=== PATIENT | male | born 1950 | race Caucasian/White ===

== ENCOUNTER 2018-08-16 12:55 | Outpatient (CLI) | payer MEDICARE ==
[~2018-08-16 12:55] MED LIST: ISOVUE-370 76%-LOCM 1 ML ONE
--- NOTE | 2018-08-16 14:42 | CT ---
CT CHEST WITH CONTRAST: 08/16/18 Multiple axial tomograms obtained through the chest with IV enhancement. INDICATIONS: Follow-up lung mass. Comparison made to chest CT 03/23/18. FINDINGS: The pleural based mass in the posterior right lower lobe is again seen. This mass continues to exhibi t a low density center with mild peripheral enhancement. The soft tissue density extends into a right lower lobe bronchus as noted on the prior study. This mass is slightly increased in size. It has a w edge shaped appearance today. Its dural base is slightly increased. Axial plane measurements are rec orded at 6.6 cm AP dimension x 5.1 cm width. A similar location measurement on the prior study record ed at 3.8 cm x 5.0 cm. the reticular nodular process in the right lower lobe parenchyma is again seen similar to the prior study. There is a nodular density in the right middle lobe which exhibits slight spiculation. This has tota l measurement of approximately 1.1 cm in axial plane. It appears stable from the prior study. There is a second pleural based nodular opacity now seen in the posterior gutter on the right measuri ng 2.0 cm in the axial plane. This could represent pleural based atelectasis as it is associated with other patchy atelectasis and/or infiltrate. There is linear opacity in the left upper lobe, apical region, extending to the apical pleural surfac e with associated apical pleural thickening is again seen without significant interval change consist ent with chronic apical pleural and parenchymal change. Nonspecific mediastinal lymph nodes and right hilar adenopathy appears stable. Views through the uppe r abdomen are unremarkable. Thoracic aorta shows atherosclerotic change without evidence of aneurysm or dissection. Proximal pulmonary arteries are opacified with no evidence of proximal pulmonary embo [place]. IMPRESSION: 1. The pleural based mass density in the posterior right lower lobe with central lucency and per ipheral enhancement is again seen. It has a more wedge configuration today. It has slightly enlarged from the prior study as noted above. The associated reticulonodular process in the right lung parench yma is again seen. There are confluent areas of streaky atelectasis or infiltrate in the posterior ri ght lung base with some nodular pleural based density seen today as described above. 2. The focal nodular density in the right middle lobe with slight spiculation is again seen and is unchanged. 3. Chronic parenchymal and pleural changes in the left apex appears stable. POS: OFF
== END 2018-08-16 12:56 | disposition home or self-care (01) ==
LOC: BICCT 12:55
PROVIDERS: ATTEND Internal Medicine
DX: R91.8 Other nonspecific abnormal finding of lung field (principal); F17.290 Nicotine dependence, other tobacco product, uncomplicated; J98.4 Other disorders of lung
CPT/HCPCS: 71260; 82565

== ENCOUNTER 2018-08-19 13:23 | Day surgery (SDC) | payer MEDICARE ==
[2018-08-16 15:52] VITALS: BMI 22.3
[~2018-08-19 13:23] MED LIST changes: +Glycopyrrolate 0.2 MG/ML 5 ML SYRINGE ONE; -ISOVUE-370 76%-LOCM 1 ML ONE; +Lidocaine 1% PF 5 ML VIAL ONE; +Ondansetron PF 4 MG/2 ML Vial ONE; +PROPOFOL 200 MG/20 ML VIAL ONE; +Rocuronium Bromide 10 MG/ML (10ML VIAL) ONE
[2018-08-19] MEDS ORDERED: Fentanyl 100 MCG/2 ML VIAL ONE (13:31)
[2018-08-19] MEDS ORDERED: SUGAMMADEX SODIUM 200 MG/2 ML VIAL ONE (13:35)
[2018-08-19 16:26] LABS: BF Color Red; Body Fluid Source Bronchial Washings; Clarity Cloudy/Turbid (Clear); RBC Count-Automated 233000 /cumm; Tube # 1; WBC/NonHematic-Auto 1500 /cumm
[2018-08-19] MEDS ORDERED: Acetaminophen/Codeine 12.5 ML UDCUP PO SCH (16:30)
[2018-08-19] MEDS ORDERED: HYDROcodone/Acetaminophen 5/325 mg Tablet ONE (16:41)
[2018-08-19] MEDS ORDERED: Acetaminophen/Codeine 120-12MG/5 ML UDCUP PO SCH (17:00)
[2018-08-19 17:11] LABS: BF Segmented Neutrophils 76 %; Cell Count Non Hematic 14 %; Lymphocytes 10 %
--- NOTE | 2018-08-19 21:01 | OP ---
DATE OF PROCEDURE: 08/19/2018 SERVICE: Pulmonary Medicine. PROCEDURES PERFORMED: Fiberoptic bronchoscopy with, 1. Visual airway inspection. 2. Endobronchial brush of the right lower lobe. 3. Bronchoalveolar lavage of the right lower lobe. 4. Transbronchial biopsies of the right lower lobe. PREPROCEDURE DIAGNOSIS: Pulmonary mass/infiltrate. POSTPROCEDURE DIAGNOSIS: Pulmonary mass/infiltrate. PREANESTHESIA ASSESSMENT: H and P had been performed. The patient's medications and allergies were reviewed. Informed consent was obtained after discussing the risks, benefits, and rationale for performing the procedure as well as alternative options. MEDICATIONS USED: General anesthesia. DESCRIPTION OF PROCEDURE: A time-out was performed, identifying the correct procedure and patient with name and date of . A diagnostic fiberoptic bronchoscope was introduced through the 8.0 endotracheal tube. The dagoberto was sharp. The bronchoscope was advanced further and a tracheobronchial tree inspection was carried out with clear identification of the right upper lobe, right middle lobe, right lower lobe, left upper lobe, lingula, and left lower lobe. Anatomy was normal to the segmental level. The posterior basal and lateral basal divisions of the right lower lobe had significant edema/erythema and was quite friable. Endobronchial brushing was obtained from the right lower lobe under fluoroscopic guidance. Bronchoalveolar lavage was then obtained. This was followed by transbronchial biopsies with fluoroscopic guidance. The bronchoscope was subsequently removed from the patient. A postprocedure fluoroscopy did not demonstrate a pneumothorax. FINDINGS: 1. Dagoberto is sharp. 2. No specific endobronchial growth was identified, though the mucosa of the posterior basal, and lateral basal segments of the right lower lobe were extremely friable. 3. Secretions were mild. SPECIMENS OBTAINED: 1. Pathology on BAL, brushings, and transbronchial biopsies. 2. Microbiology on BAL. COMPLICATIONS: None. ESTIMATED BLOOD LOSS: 5 mL. FLUOROSCOPY TIME: 2 minutes. DISPOSITION: The patient will be discharged home with postprocedure instructions once he meets criteria. He will return to clinic as previously directed next week. Job ID: [id number] [facility]
[2018-08-24 09:15] LABS: Fungus Stain Final report (.)
== END 2018-08-19 17:15 | disposition home or self-care (01) ==
LOC: SDC 13:23
PROVIDERS: ATTEND Internal Medicine
PROC: 0BD68ZX Extraction of Right Lower Lobe Bronchus, Via Natural or Artificial Opening Endoscopic, Diagnostic (ICD-10-PCS; principal; 2018-08-19)
PROC: 0B9F8ZX Drainage of Right Lower Lung Lobe, Via Natural or Artificial Opening Endoscopic, Diagnostic (ICD-10-PCS; 2018-08-19)
PROC: 0BDF8ZX Extraction of Right Lower Lung Lobe, Via Natural or Artificial Opening Endoscopic, Diagnostic (ICD-10-PCS; 2018-08-19)
DX: R91.8 Other nonspecific abnormal finding of lung field (principal); J18.9 Pneumonia, unspecified organism; J43.9 Emphysema, unspecified; I13.0 Hypertensive heart and chronic kidney disease with heart failure and stage 1 through stage 4 chronic kidney disease, or unspecified chronic kidney disease; E11.22 Type 2 diabetes mellitus with diabetic chronic kidney disease; N18.2 Chronic kidney disease, stage 2 (mild); I50.22 Chronic systolic (congestive) heart failure; E78.5 Hyperlipidemia, unspecified; I25.10 Atherosclerotic heart disease of native coronary artery without angina pectoris; I73.9 Peripheral vascular disease, unspecified; F41.9 Anxiety disorder, unspecified; Z95.1 Presence of aortocoronary bypass graft; Z95.4 Presence of other heart-valve replacement; F17.210 Nicotine dependence, cigarettes, uncomplicated; Z79.4 Long term (current) use of insulin; Z79.82 Long term (current) use of aspirin; Z79.899 Other long term (current) drug therapy
CPT/HCPCS: 36416; 76000; 85060; 87070; 87102; 87116; 87205; 87206; 88112; 88305; 88312; 89051; J2001; J2405; J2704; J3010; J7620

== ENCOUNTER 2019-02-02 09:19 | Outpatient (CLI) | payer MEDICARE ==
--- NOTE | 2019-02-02 12:58 | PET ---
Nuclear medicine FDG PET/CT: (Positron emission tomography and computed tomography) DATE: 02/02/2019 HISTORY: 68-year-old male with solitary pulmonary nodule. COMPARISON: none TECHNIQUE: IV injection of F-18 fluorodeoxyglucose (FDG) dose: 10.5 mCi. PET scan and attenuation correction CT performed from skull base to proximal thighs. FINDINGS: SUV (standard uptake values) numbers given are maximum SUVs. QCLR used. NECK: At the junction between the superficial and deep lobes of the left parotid gland, there is a small fo cus of increased uptake with SUV of 3.6. This is probably in the deep lobe, and would not be accessible to ultrasound-guided fine-needle aspiration biopsy. No hypermetabolic activity in cervical lymph nodes. Chest: In the left apical pleural-based upper lobe confluent pulmonary opacity, there is no abnormally incre ased uptake (SUV 1.7), and this is consistent with apical pulmonary scar. With regard to the 5 x 6.5 x 3.5 cm wedge-shaped right lower lobe pulmonary lesion with broad base ag ainst the posterior pleural surface, although there is no increased uptake in the main, central fluid component, is increased uptake in the rim anterior and especially posterior to the fluid collec tion. This thick rim has SUV up to 7.7. This increased uptake also broadly involves the contacted portion of the right posterior thickened pleura as well as the adjacent chest wall of the rib intersp gray. On the current attenuation correction CT, there is destruction of the posterolateral aspects of the right abutting ninth and eighth ribs, including pathologic fracture of the right posterior henri th rib. The very small spiculated groundglass pulmonary nodule in the right middle lobe does not have increas ed uptake (SUV 0.9). There is hypermetabolic activity in mildly enlarged subcarinal knees and lymph node (SUV 3.9). No oth er hypermetabolic mediastinal lymph nodes or hilar lymph nodes. Abdomen and pelvis: No suspicious hypermetabolic activity. IMPRESSION: 1) the necrotic moderately large wedge-shaped right lower lobe pulmonary lesion has thick rim of hype rmetabolic activity. This could represent primary lung cancer or lung abscess. 2) there is a new finding of severe destruction of the abutting right posterior eighth and ninth ribs , and pathologic fracture of the right posterior ninth rib. These are involved with hypermetabolic activity. The findings either represent direct malignant neoplastic extension and invasion of the rig ht pleura and right ribs, or osteomyelitis if this is an infectious process. Recommend clinical correlation (is there fever and leukocytosis?). 3) mildly hypermetabolic subcarinal lymphadenopathy. 4) small hypermetabolic nodule in the deep lobe of the left parotid gland. Not accessible with ultras ound-guided fine-needle aspiration biopsy. Recommend otolaryngology consultation.
== END 2019-02-02 09:20 | disposition home or self-care (01) ==
LOC: PET 09:19
PROVIDERS: ATTEND Internal Medicine
DX: R91.1 Solitary pulmonary nodule (principal); R59.0 Localized enlarged lymph nodes; K11.8 Other diseases of salivary glands; J98.4 Other disorders of lung
CPT/HCPCS: 78815; A9552

== ENCOUNTER 2019-02-16 10:02 | Day surgery (SDC) | payer MEDICARE ==
[2019-02-15 17:22] VITALS: BMI 22.3
[2019-02-16 10:29] LABS: #Basophils 0.1 thou/uL (0.0-0.2); #Eosinphils 0.3 thou/uL (0.0-0.7); #Lymphocytes 1.6 thou/uL (1.20-3.40); #Monocytes 1.2 thou/uL (0.11-0.59); #Neutrophils 10.3 thou/uL (1.40-6.50); %Basophils 0.6 % (0.0-1.0); %Eosinophils 2.1 % (0.0-10.0); %Lymphocytes 11.9 % (21.0-51.0); %Monocytes 8.6 % (0.0-10.0); %Neutrophils 76.7 % (42.0-75.0); Hemoglobin 12.2 g/dL (14.0-18.0); Mean Corpuscular HGB CONC 32.5 g/dL (32.0-36.0); Mean Corpuscular Hemoglobin 30.1 pg (27.0-31.0); Mean Corpuscular Volume 92.7 fL (78.0-98.0); Mean Platelet Volume 8.6 fL (7.4-10.4); Platelet Count 297 thou/uL (130-400); RBC Distribution Width 12.9 % (11.5-14.5); Red Blood Cell (RBC) Count 4.07 mill/uL (4.70-6.10); White Blood Cell (WBC) Count 13.4 thou/uL (4.8-10.8)
[2019-02-16 10:34] LABS: INR-International Normal Ratio 1.2; PTT 34.4 SEC (22.9-36.1)
--- NOTE | 2019-02-16 13:03 | CT ---
CT GUIDED RIGHT LOWER LOBE LUNG MASS BIOPSY: INDICATION: Right lower lobe lung mass. TECHNIQUE: Informed consent was obtained. Preprocedure power engineer images were obtained for guidance purposes only. A site overlying the large cavitary right lower lobe mass was marked. The site was prepped and draped in the usual sterile fashion. Buffered 1% lidocaine was administered to the overlying subcutaneous ti ssues. Patient underwent conscious sedation under guidance of the radiology nurse. The patient received 100 mcg of IV fentanyl and 1 mg of IV Versed. Buffered 1% lidocaine was measured to the over lying subcutaneous tissues. A small dermatotomy was made within the eighth intercostal space. A 17-gauge x 6.8 cm needle was guided down to the soft tissue mass that was extending extrapleural from the chest cavity. The needle was advanced approximately 2 cm to the margin of the soft tissue mass that was extrapleural. Utilizing an 18-gauge x 10 cm core biopsy device and a 1.3 cm throw, 4 separat e core samples were obtained of the mass lesion. Pathology was on-site to verify adequacy of tissue sampling. Two samples were submitted in formalin for evaluation of malignancy. Two separate samples w ere submitted in the provided container for fungal cultures. The needle was removed. Pressure was held at the biopsy site until hemostasis was obtained. Postprocedural CT demonstrated no pneumothorax . A small amount of gas is seen within the extrapleural soft tissue mass overlying the left lower lobe mass lesion. There are pathologic fractures involving the posterior ninth and eighth ribs. Mass lesion does involve these ribs. IMPRESSION: Successful right lower lobe lung mass biopsy. Transcribed Date/Time: 02/16/2019 1:15 PM
== END 2019-02-16 13:30 | disposition home or self-care (01) ==
LOC: CT 10:02
PROVIDERS: ATTEND Internal Medicine
PROC: 0BBF3ZX Excision of Right Lower Lung Lobe, Percutaneous Approach, Diagnostic (ICD-10-PCS; principal; 2019-02-16)
DX: C34.31 Malignant neoplasm of lower lobe, right bronchus or lung (principal); E11.9 Type 2 diabetes mellitus without complications; F17.200 Nicotine dependence, unspecified, uncomplicated; I10 Essential (primary) hypertension; I25.2 Old myocardial infarction; J43.9 Emphysema, unspecified; Z95.1 Presence of aortocoronary bypass graft
CPT/HCPCS: 32405; 36415; 77002; 85025; 85610; 85730; 87102; 87449; 88305; 88312; 88333; 88341; 88342

== ENCOUNTER 2019-03-14 08:35 | Outpatient (CLI) | payer MEDICARE ==
--- NOTE | 2019-03-14 10:51 | MRI ---
MRI BRAIN WITHOUT CONTRAST: HISTORY: Squamous cell carcinoma of the lung. FINDINGS: No restricted diffusion is seen. There is ventricular and sulcal prominence due to cortical atrophy. There are foci of T2 prolongation in the periventricular white matter, consistent with mild chronic s mall vessel ischemic disease. No evidence of infarct, hemorrhage, midline shift or abnormal extraaxia l fluid collections is seen. In the absence of IV contrast, the possibility of metastatic disease cannot be completely excluded. There is a small area of gliosis in the left frontal lobe. IMPRESSION: No evidence of acute intracranial process. POS: [facility]
== END 2019-03-14 08:36 | disposition home or self-care (01) ==
LOC: MRI 08:35
PROVIDERS: ATTEND Internal Medicine
DX: C34.90 Malignant neoplasm of unspecified part of unspecified bronchus or lung (principal)
CPT/HCPCS: 70551

== ENCOUNTER 2019-03-15 19:53 | Inpatient (IN) | payer MEDICARE ==
--- NOTE | 2019-03-15 22:04 | CT ---
CT ABDOMEN AND PELVIS WITHOUT IV CONTRAST: 03/15/19 INDICATIONS: Abdominal pain. Altered mental status. FINDINGS: images through the lung bases show consolidation and loculated fluid collection in the posterior righ t lung base. This could represent a developing lung abscess with an area of low attenuation measuring 4 cm. Images through the abdomen show low volume ascites throughout the abdomen. Liver shows irregular lisbet ins suggesting changes of cirrhosis. Liver, spleen and pancreas otherwise unremarkable. There is increased density in the dependent portion of the gallbladder suggesting tiny stones. Small bowel loops normal caliber. Stool throughout the colon. Aorta is calcified and mildly ectatic. The urinary bladder shows bladder wall thickening. The kidneys show no evidence of hydronephrosis. Pe rinephric stranding and mesenteric edema. Small umbilical hernia. IMPRESSION: 1. Consolidation and with loculated fluid collection in the posterior right lung base. Empyema o r developing abscess cannot be excluded. 2. Low volume ascites throughout the abdomen and pelvis. 3. Thickened urinary bladder wall. 4. Small umbilical hernia. POS: OFF
[2019-03-15] MEDS ORDERED: Ketorolac Tromethamine 30 MG/ML VIAL ONE (23:05)
[2019-03-16] MEDS ORDERED: Ondansetron PF 4 MG/2 ML Vial IVP PRN (02:07)
[2019-03-16] MEDS ORDERED: HumaLOG 300 UNITS/3 ML VIAL SC PRN (02:07)
[2019-03-16] MEDS ORDERED: Dextrose 5% in Water 1,000 ML IV PRN (02:07)
[2019-03-16] MEDS ORDERED: hydrALAZINE 20 MG/ML VIAL SLOW IVP PRN (02:16)
[2019-03-16] MEDS ORDERED: Dextrose 50% Abboject 50 ML SYRINGE ONE ×2 (02:18→05:47)
[2019-03-16] MEDS ORDERED: Vancomycin HCl 1 GM in Premix Bag 1 BAG IVPB SCH (02:30)
[2019-03-16] MEDS ORDERED: Dextrose 5 % And 0.9 % NaCl 1,000 ML IV SCH (02:30)
[2019-03-16] MEDS ORDERED: Potassium Phosphate 30 MMOL in Sodium Chloride 0.9% 500 ML IVPB SCH (02:30)
[2019-03-16] MEDS: Dextrose 50% Abboject 50 ML SYRINGE SLOW IVP PRN ×2 (02:54→05:52)
[2019-03-16 03:03] LABS: #Basophils 0.1 thou/uL (0.0-0.2); #Eosinphils 0.2 thou/uL (0.0-0.7); #Monocytes 1.6 thou/uL (0.11-0.59); #Neutrophils 10.3 thou/uL (1.40-6.50); %Basophils 0.5 % (0.0-1.0); %Eosinophils 1.2 % (0.0-10.0); %Lymphocytes 7.5 % (21.0-51.0); %Monocytes 11.9 % (0.0-10.0); Hemoglobin 12.2 g/dL (14.0-18.0); Mean Corpuscular Hemoglobin 29.5 pg (27.0-31.0); Mean Platelet Volume 8.8 fL (7.4-10.4); Platelet Count 226 thou/uL (130-400); RBC Distribution Width 13.9 % (11.5-14.5); Red Blood Cell (RBC) Count 4.13 mill/uL (4.70-6.10); White Blood Cell (WBC) Count 13.1 thou/uL (4.8-10.8)
--- NOTE | 2019-03-16 03:13 | HP ---
PRESENTING COMPLAINT: Altered mental status and weakness. HISTORY OF PRESENT ILLNESS: Nikhil Sweeney is a 68-year-old male with past medical history of stage III squamous cell cancer with recent problem with memory, who had an MRI yesterday with no acute findings. The patient was brought to the ER by the family today because of reported worsening altered mental status as well as weakness and not eating or drinking well. It is unclear if the patient is currently on chemo. The patient when seen, ER physician reported that the patient was confused when he evaluated the patient with the family. At this time, family is not present in the room. The patient is unable to give me history as he is very drowsy and when aroused, he seems to be hollering from pain and then goes back to sleep. There was reported abdominal pain. CT shows evidence of right lung abscess with empyema. The patient is being admitted for pyelo. As per the ER note, has stated that the patient has not received any treatment for his lung cancer and has been having recurrent falls with rib fractures and apparently he has been taking [place] regularly, but acting confused and abnormal. On arrival in the ED, his glucose level was low at 42. PAST MEDICAL HISTORY: Significant for lung cancer, currently untreated; history of recurrent falls, and history of progressive confusion. History of diabetes mellitus, hypertension, hyperglycemia, history of lung cancer, and coronary artery disease. PAST SURGICAL HISTORY: Include history of CABG x3 vessels. REVIEW OF SYSTEMS: Unable to obtain given the patient is confused. SOCIAL HISTORY: As per record, significant for history of chronic tobacco use. He actively smoked before onset of confusion. PHYSICAL EXAMINATION: VITAL SIGNS: Blood pressure of 125/87, pulse of 76, respiratory rate of 20, on nasal airflow with O2 saturation of 92%. GENERAL: Obese, elderly looking male, appears older than stated age, drowsy. When aroused, the patient is only hollering and groaning, not responsive or conversant. HEENT: Head is atraumatic, normocephalic. Pupils equal and reactive to light. Extraocular motor movement intact. NECK: No JVD. No carotid bruit. RESPIRATORY: Coarse bibasilar crepitations. CARDIOVASCULAR: S1, S2. Rate and rhythm regular. ABDOMEN: Obese, mild ascites by shifting dullness with edematous wall. Bowel sounds positive. EXTREMITIES: 1+ bilateral pedal edema. No calf tenderness. NEUROLOGIC: The patient is drowsy as noted above. LABORATORY DATA: WBC 16.6, platelets , hemoglobin 13, and neutrophils 69%. Potassium of 3.2, creatinine of 3.9 with eGFR of 15. Glucose was 27, bicarb of 32, sodium 137, troponin I 0.107, TSH of 1.0, lipase of less than 4. Urinalysis was unremarkable. CT of the abdomen, consolidation with loculated fluid collection in the posterior right lung base, but a more developing abscess cannot be excluded. Low volume ascites throughout the abdomen and pelvis, small umbilical hernia, and thickened urinary bladder wall. IMPRESSION: 1. Right base empyema. 2. Leukocytosis with possible sepsis. 3. Altered mental status, likely due to toxic encephalopathy from infection. 4. Hypoglycemia. 5. History of diabetes mellitus. 6. Hypokalemia. 7. Acute on chronic renal failure. PLAN: We will admit the patient to the intensive care unit. We will start the patient on D5 lactated Ringer's stat. We will give extra D50 now as the patient has not been treated for this hypoglycemia. We will consult Nephrology. We will place Kim and monitor urine output. We will start empirical antibiotics with vancomycin and Zosyn. The patient might need Interventional Radiology to see if right lung empyema can be drained. We will consult ID also. We will obtain blood cultures x2. Attempt was made to reach the family. We will call the to discuss advance care directive. Subcutaneous heparin for DVT prophylaxis now. Follow magnesium level and correct as appropriate. We will wean O2 as tolerated. The patient might need some diuresis since he has generalized fluid overload. We will follow albumin level and if albumin is low, the patient might benefit from albumin diuresis. Total time spent in review of record, discussion with the ER physician, greater than 60 minutes. Job ID: [id number]
[2019-03-16 03:42] LABS: Albumin 2.7 g/dL (3.4-4.8); Anion Gap 16 mmol/L (10-20); BUN (Urea Nitrogen) 47 mg/dL (8.4-25.7); BUN/Creatinine Ratio 13.62; Calc. Creatinine Clearance 0 mL/min (70-130); Calcium 8.1 mg/dL (7.8-10.44); Carbon Dioxide 25 mmol/L (23-31); Chloride 99 mmol/L (98-107); Estimated GFR-MDRD 18; Glucose 84 mg/dL (80-115); Magnesium 2.3 mg/dL (1.6-2.6); Phosphorus 5.5 mg/dL (2.3-4.7); Potassium 3.6 mmol/L (3.5-5.1); Sodium 136 mmol/L (136-145)
[2019-03-16] MEDS ORDERED: Cefepime 2 GM in Sodium Chloride 0.9% 100 ML IVPB SCH (04:00)
--- NOTE | 2019-03-16 04:46 | PDOC.BPN ---
- Brief Progress Note Glucose when checked at time of evaluation was low at 35 , given d50 and started on D5 FLUID . Hypoglycemia may be reason for worsening AMS noted when l was evaluating the patient . noted that patient must have been in this state for close to 6hrs
[2019-03-16] MEDS ORDERED: Vancomycin HCl 500 MG in Sodium Chloride 0.9% 100 ML IVPB SCH (05:00)
[2019-03-16] MEDS ORDERED: Cefepime 2 GM VIAL ONE (05:08)
[2019-03-16] MEDS ORDERED: Dextrose 10% in Water 1,000 ML IV SCH (06:15)
[2019-03-16] MEDS: Carvedilol 3.125 MG TAB PO SCH ×3 (08:32→20:32)
[2019-03-16] MEDS: Lorazepam 2 MG/ML VIAL SLOW IVP PRN ×2 (08:59→20:19)
[2019-03-16] MEDS: Albumin 25% 25 GM/100 ML BOT IVPB SCH ×3 (08:59→20:19)
[2019-03-16] MEDS ORDERED: Enoxaparin Sodium 40 MG/0.4 ML SYRINGE SC SCH (09:00)
[2019-03-16] MEDS ORDERED: Furosemide 40 MG TAB PO SCH (09:00)
[2019-03-16] MEDS ORDERED: Bacteriostatic Water 30 ML VIAL FS PRN (09:30)
--- NOTE | 2019-03-16 09:39 | CON ---
DATE OF CONSULTATION: SERVICE: Renal Medicine. HISTORY OF PRESENT ILLNESS: Mr. Tejeda is a 68-year-old white male who was admitted for confusion and generalized weakness. He has history of decreased p.o. intake. He has not been eating well. On the records here, he has a known diagnosis of lung cancer ? I asked the patient regarding this. He is not sure. In addition, the patient had an MRI of the brain, which showed no acute intracranial abnormality. During the evaluation, the patient was noted to be in acute kidney injury. REVIEW OF SYSTEMS: Positive for confusion. Positive for decreased p.o. intake. No abdominal pain. Decreased energy level. No fever or chills. No productive cough. No hematochezia. No dysuria. No urinary frequency. CURRENT MEDICATIONS: 1. DuoNeb q.4. 2. Coreg 3.125 mg p.o. b.i.d. 3. Cefepime 2 g IV daily. 4. D5 normal saline at 100 mL an hour. 5. Lovenox 40 mg subcu daily. 6. Furosemide 40 mg p.o. b.i.d. 7. Levaquin 250 mg daily. 8. Ativan 1 mg IV daily, status post vancomycin. PAST MEDICAL HISTORY: 1. Hypertension. 2. Coronary artery disease. 3. Type 2 diabetes mellitus. 4. Lung cancer. PAST SURGICAL HISTORY: 1. Status post cardiac cath. 2. Status post CABG. 3. Status post bronchoscopy. SOCIAL HISTORY: The patient has a history of chronic smoking, but has discontinued smoking. He could not recall the duration per se, but at least he smoked one pack a day when he was smoking. No alcohol. He lives in [place]. He is . He has 3 children. No IV drug abuse. Sedentary lifestyle. ALLERGIES: UNKNOWN. TRAUMA: None. IMMUNIZATION: Up-to-date. HOSPITALIZATIONS: Please see Past Medical History. FAMILY HISTORY: No family history of ESRD. PHYSICAL EXAMINATION: VITAL SIGNS: Blood pressure is currently 125/87, heart rate 76, respiratory rate 20, and O2 saturation 92%. GENERAL: Awake, alert, can respond to my verbal stimuli, not in distress. SKIN: Adequate turgor. HEENT: Pinkish conjunctivae. Anicteric sclerae. No neck mass. No carotid bruits. No JVD. CHEST: No deformities. LUNGS: Decreased breath sounds. Occasional wheezing. HEART: Normal sinus rhythm. No murmur. No gallops. No rubs. ABDOMEN: Globular, soft. Nontender. No masses. EXTREMITIES: No edema. No deformities. LABORATORY DATA: Laboratories of March 16, 2019; white count 13.1, hemoglobin 12.2. Sodium 136, potassium 3.6, chloride 99, carbon dioxide 25, BUN 47, creatinine 3.45, and albumin is 2.7. On March 15, 2019, BUN 50, creatinine 3.95. On March 08, 2019, creatinine 2.77. On September 02, 2018, creatinine 1.35. MRI of the brain, no acute intracranial abnormality, verbal report. On March 15, 2019, chest x-ray shows pulmonary vascular congestion with infiltrates. CT scan of the abdomen and pelvis on March 15, 2019, there is a noted consolidation, loculated fluid in the posterior right lung base ? of empyema, thickened urinary bladder wall. No evidence of hydronephrosis, but there is mesenteric stranding. On March 15, 2019, urinalysis, specific gravity is 1.025, urine bacteria is 2+, rbc 0 to 3, wbc 4 to 6. There is positive for protein. ASSESSMENT AND PLAN: Acute kidney injury on top of his chronic renal failure - the possibility of a hemodynamically-mediated renal dysfunction remains. He has a very concentrated urine. It is possible that the prerenal may be either secondary to volume depletion versus decreased ejection fraction. I would suggest we do a cardiac echo to check for ejection fraction with this patient. For the moment, continue diuretics. We will discontinue IV fluid. We will start him on albumin infusion 25 g IV q.6 x4 doses for the next 24 hours. There is no indication for any dialytic intervention with this patient. We will recheck basic metabolic profile and CBC in a.m. Job ID: [id number]
[2019-03-16] MEDS: methylPREDNISolone Sod Succ 40 MG VIAL IVP SCH (09:44)
--- NOTE | 2019-03-16 10:31 | PDOC.HOSPP ---
- Subjective Encounter Date: 03/16/19 Encounter Time: 10:30 Subjective: arousable, minimally cooperative with questioning - Objective Vital Signs & Weight: Vital Signs (12 hours) Temp Pulse Resp Pulse Ox 03/16/19 08:17 97.2 F L 03/16/19 08:16 98 12 03/16/19 07:45 100 03/16/19 06:35 96.8 F L Weight Weight 158 lb 11.725 oz Most Recent Monitor Data Heart Rate from ECG 92 NIBP 135/90 NIBP BP-Mean 105 Respiration from ECG 1 SpO2 95 Result Diagrams: 03/16/19 02:46 03/16/19 02:46 Additional Labs: Accuchecks 03/16/19 03/16/19 03/16/19 06:12 05:50 05:36 POC Glucose 180 H 54 L* 64 L 03/16/19 03/16/19 03/16/19 03:48 03:28 03:05 POC Glucose 114 H 89 72 03/16/19 03/15/19 02:37 20:37 POC Glucose 104 137 H Hospitalist ROS - Medication Medications: Active Medications Generic Name Dose Route Start Last Admin Trade Name Freq PRN Reason Stop Dose Admin Albumin Human 25 gm 03/16/19 09:00 03/16/19 08:59 Albumin 25% IVPB 03/17/19 03:01 25 gm 0300,0900,1500,2100 ZAINA Administration Albuterol/Ipratropium 3 ml 03/16/19 02:30 03/16/19 08:16 Duoneb NEB 3 ml [id number] ZAINA Administration Carvedilol 3.125 mg 03/16/19 09:00 03/16/19 08:32 Coreg PO 3.125 mg BID ZAINA Administration Enoxaparin Sodium 40 mg 03/16/19 09:00 03/16/19 08:32 Lovenox SC 40 mg 0900 ZAINA Administration Lorazepam 1 mg 03/16/19 02:20 03/16/19 08:59 Ativan SLOW IVP 1 mg Q6H PRN Administration Anxiety/Agitation Methylprednisolone Sodium Succinate 40 mg 03/16/19 09:00 03/16/19 09:44 Solu-Medrol IVP 40 mg DAILY ZAINA Administration - Exam General Appearance: NAD General - other findings: unkempt Neck: no JVD Heart: RRR, no murmur Respiratory - other findings: rales, dull R base, otherwise clear Gastrointestinal: soft, normal bowel sounds Extremities: no edema Hosp A/P (1) Lung cancer, lower lobe Code(s): C34.30 - MALIGNANT NEOPLASM OF LOWER LOBE, UNSP BRONCHUS OR LUNG Status: Chronic Qualifiers: Laterality: right Qualified Code(s): C34.31 - Malignant neoplasm of lower lobe, right bronchus or lung (2) Empyema lung Code(s): J86.9 - PYOTHORAX WITHOUT FISTULA Status: Acute (3) Encephalopathy acute Code(s): G93.40 - ENCEPHALOPATHY, UNSPECIFIED Status: Acute (4) Acute renal failure Status: Acute (5) DM type 2 (diabetes mellitus, type 2) Status: Acute Qualifiers: Diabetes mellitus long term care pharmacist insulin use: without long term care pharmacist use Diabetes mellitus complication status: with hypoglycemia Diabetes mellitus complication detail: without coma Qualified Code(s): E11.649 - Type 2 diabetes mellitus with hypoglycemia without coma (6) CAD (coronary artery disease) Code(s): I25.10 - ATHSCL HEART DISEASE OF [place] CORONARY ARTERY W/O ANG PCTRS Status: Chronic Qualifiers: Coronary Disease-Associated Artery/Lesion type: [place] artery [place] vs. transplanted heart: [place] heart Associated angina: without angina Qualified Code(s): I25.10 - Atherosclerotic heart disease of [place] coronary artery without angina pectoris (7) HTN (hypertension) Code(s): I10 - ESSENTIAL (PRIMARY) HYPERTENSION Status: Chronic Qualifiers: Hypertension type: essential hypertension Qualified Code(s): I10 - Essential (primary) hypertension - Plan blood C&S pending cont iv antibx await pulmonary input iv fluids, monitor creatinine serial accu/treat as appropriate
[2019-03-16] MEDS: Dextrose 5 %-0.45 % NaCl 1,000 ML IV SCH ×2 (11:43→21:48)
--- NOTE | 2019-03-16 13:19 | CON ---
DATE OF CONSULTATION: 03/16/2019 INDICATION FOR CONSULTATION: A 68-year-old gentleman, who has had an episode of nonsustained ventricular tachycardia. We were asked to see him. HISTORY OF PRESENT ILLNESS: This very unfortunate 68-year-old gentleman was recently diagnosed with squamous cell lung cancer, which appears to be possibly metastatic. He had his history of coronary artery disease in 2005. He was seen for chest pain, was found to have 3-vessel coronary artery disease, underwent a 4-vessel bypass with a CHATMAN to the left anterior descending artery. He had a saphenous vein graft to the first and second diagonal branches also to the distal right coronary artery. In 2006, he underwent angioplasty and stent placement to the left circumflex with 2.78 x 8 mm stent. He also at that time had a left main dissection, which required also a stent, it was a 3.0 x 13 mm Cypher stent. He had been followed by Dr. Arthur and when he was admitted to the hospital at this time, he was admitted due to mental status changes, confusion, weakness, not eating. He was found at this time to have 22 beats of nonsustained ventricular tachycardia. We were asked to see the patient. His cardiac enzymes are unremarkable. EKG did not show any acute changes. He does have some nonspecific changes with some diffuse T-wave abnormalities, which certainly could indicate ischemia. He also had chest x-ray, shows what appears to be a possible right lung empyema. The bottom half of the lung field is obscured with what appears to be an abscess. He also has some small nodules noted throughout the lung putnam, more in the mediastinal area. At this time, he is confused. He is moaning and groaning, complaining of pain. He does answer some questions, but otherwise he goes back to sleep, continues moaning. PAST MEDICAL HISTORY: Significant for coronary artery disease, chronic kidney disease, lung cancer, diabetes, hypertension, hypercholesterolemia, and he does have stage III squamous cell cancer. SOCIAL HISTORY: He smoked in the past. He has no alcohol use. ALLERGIES: NONE. MEDICATIONS: At this time, he is on; 1. Zofran. 2. Solu-Medrol. 3. Vancomycin. 4. Lovenox. 5. He has been given Ativan and DuoNeb. 6. He is on Coreg 3.125 mg b.i.d. 7. He is on cefepime HCL 2 g once a day. 8. Hydralazine as needed. Other p.r.n. medications: He also takes, 1. Atorvastatin 10 mg a day. 2. He is on a sliding scale insulin. 3. Aspirin 81 mg. 4. He is also on what appears to be levofloxacin. REVIEW OF SYSTEMS: Please refer the notes dictated previously. He is at this time is not going to give very much information. He appears to be in generalized pain. ALLERGIES: NONE. PHYSICAL EXAMINATION: GENERAL: Reveals an elderly, ill-appearing, somewhat anxious gentleman, who is in some degree of distress due to pain. VITAL SIGNS: Blood pressure is 125/107, heart rate 103 and it is regular, respiratory rate 14, O2 saturation is 97% on 2 L of oxygen. HEENT: Shows the head to be normocephalic and atraumatic. Carotid pulses are present. I cannot hear any bruits at this time, but he is moaning. CHEST: Decreased breath sounds, mainly on the right side, at least 1 residential up. CARDIOVASCULAR: He has a regular rate and rhythm. I do not hear any significant murmurs, heaves, thrills, bruits, or rubs at this time, but again it is difficult to auscultate due to the patient continuing to moan. ABDOMEN: Soft and nontender. He does have some tenderness in the suprapubic area, which most likely due to full bladder. EXTREMITIES: Do show 2+ lower extremity edema. Difficult to palpate pedal pulses. NEUROLOGICAL: The patient seems to be confused. He is on generalized weakness. EKG shows normal sinus rhythm with diffuse T-wave abnormalities, which could be compatible with ischemia. Chest x-ray shows infiltrates as noted at the bottom of the right lung, it is one residential up, it is almost opacified, may be an empyema or possibly obstruction due to squamous cell cancer. IMPRESSION: 1. Mental status changes and confusion of uncertain etiology. The patient has not been eating. He has also had his blood sugars as low as 27 since admission. At this time, his last blood sugar was 124. This will be dealt without a primary care service. 2. History of short run of 22 beats of nonsustained ventricular tachycardia in this patient who does have coronary artery disease. It is quite possible he may have underlying disease. He has been placed on Lovenox. We will continue to monitor the patient at this time. Enzymes are negative. We will continue to follow with his metastatic lung cancer. He may not be a candidate for further cardiac intervention at this time. 3. Urinary tract infection. He has been placed on antibiotics. 4. History of coronary artery disease. This does appear to be stable despite having nonspecific ST segment changes. Continue to follow the patient as far as his lung cancer. I believe, he has been seen by the oncologist, at least nurse practitioner and they will continue to monitor the patient with you. At this time, I would agree with the present management of the patient. Further care of the patient will be by Dr. Arthur and he visits with the patient tomorrow. LABORATORY DATA: Hemoglobin is 12.2, WBC of 13.1, and platelet count was 226,000. Potassium was 3.2, sodium was 136, BUN was 47, and creatinine is 3.45. At present, blood sugar was 124. Cardiac enzymes are unremarkable. At this time, we will try to obtain an echocardiogram on the patient to evaluate his ejection fraction. We will see if he has been seen in the office by Dr. Arthur recently and may have had an echocardiogram there also. ADDENDUM: The patient also underwent a cardiac catheterization in [address] Barros for evaluation of saphenous vein grafts. He also underwent a reoperative procedure for an aortic valve replacement. He was implanted with a #23 Aviles Magna pericardial bioprosthetic valve. Please note that in his history. Job ID: [id number]
--- NOTE | 2019-03-16 15:16 | CON ---
DATE OF CONSULTATION: HISTORY OF PRESENT ILLNESS: Patel Tejeda is a 68-year-old gentleman with a known small cell bronchogenic carcinoma, recently diagnosed. He is in the process of being treated. In fact, he was to go today for a conference with the oncologist and the radiation oncologist for ongoing treatment.but presented to the ER with several day history of change in mental status, nausea, vomiting, and not feeling well. This morning, this patient in the MICU remains somewhat agitated, not getting much history. He had an MRI done, which showed no evidence of any metastatic disease. He has scrolled up in bed, but appears to be in no distress. He is complaining of pain all over his body. PAST MEDICAL HISTORY: Coronary artery disease status post stent, history of diabetes, and history of lung cancer diagnosed following CT-guided biopsy. Past medical history otherwise; hypertension, diabetes, and high cholesterol. PAST SURGICAL HISTORY: Including a bypass surgery in 2005 and apparently cardiac stent. SOCIAL HISTORY: He is still smoking. Denies any alcohol or drug abuse. HOME MEDICATIONS: Includes; 1. Aspirin. 2. Pravastatin. 3. Insulin. 4. Ativan. 5. Coreg. 6. Lasix. ALLERGIES: NONE. REVIEW OF SYSTEMS: Difficult to obtain. PHYSICAL EXAMINATION: GENERAL: He is agitated, but in no distress. VITAL SIGNS: Temperature 97, pulse 98, saturations 100% on 3 L, and blood pressure 130/80. CHEST: Bilateral rhonchi and crackles. CARDIAC: Normal S1 and S2. No gallops. ABDOMEN: No masses. LABORATORY DATA: His blood sugar was low. He was on D10. This was discontinued. He is 180 right now. Otherwise, renal function apparently has worsened since before with a baseline creatinine of 2.7, now 3.45 and BUN is 47, otherwise potassium is normal. White count 13,000, H and H 12 and 38, and platelet count is normal. CT abdomen was negative, but the chest x-ray showed the right lower lobe mass with some fluid density. ASSESSMENT AND PLAN: 1. Necrotizing right lower lobe bronchogenic carcinoma, non-small cell. 2. Tobacco, chronic obstructive pulmonary disease. 3. Coronary artery disease. 4. Diabetes. 5. Worsening renal failure. I agree with empiric antibiotics for the time being. Continue neb treatments. I have added low-dose steroids. We will notify Dr. Kruse, who has seen him. Notify Oncology, follow with the patient regarding prognosis and treatment. Consultation note, 70 minutes, 50% direct patient care. Job ID: [id number] MTDD
[2019-03-16] MEDS: Cefepime 2 GM in Sodium Chloride 0.9% 100 ML IVPB SCH (15:55)
[2019-03-16] MEDS ORDERED: Insulin Regular 300 UNITS/3 ML VIAL SC SCH (16:30)
--- NOTE | 2019-03-16 17:22 | CON ---
DATE OF CONSULTATION: REASON FOR CONSULT: Squamous cell lung cancer. HISTORY OF PRESENT ILLNESS: Mr. Tejeda is a 68-year-old male, who has newly diagnosed squamous cell carcinoma of the right lower lung. He has a 6.6 cm right lower lobe mass with destruction of 8th and 9th ribs. He also has subcarinal lymphadenopathy. He has a history of a 40 pack year smoking, dyspnea on exertion. He underwent a brain MRI on March 14 to complete staging, his MRI was negative for metastatic disease making him a stage 3. The plan was to begin concurrent chemoradiation. He presented to the emergency room yesterday with altered mental status. He had a mild leukocytosis on presentation. Abdominal and pelvis CT showed empyema. He was admitted for altered mental status and possible sepsis and started on empiric antibiotics. The patient is in the IMCU. The patient was seen in the IMCU, there are no family at bedside. He is poorly responsive to questions. He is awake and arousable, but not aware of his surroundings. PAST MEDICAL HISTORY: 1. Newly diagnosed stage 3 squamous cell carcinoma of the right lower lobe. 2. Coronary artery disease. 3. Diabetes mellitus 2. 4. Hypertension. 5. Anxiety and depression. PAST SURGICAL HISTORY: CABG in 2005 and 2010. ALLERGIES: NO KNOWN DRUG ALLERGIES. HOME MEDICATIONS: 1. Aspirin 81 mg. 2. Coreg 3.125 mg. 3. Lispro insulin. 4. Lasix 40. 5. Lisinopril 5. 6. Lorazepam 1 mg. 7. [place] 10/325 for pain. FAMILY HISTORY: Father had a brain tumor. SOCIAL HISTORY: , has 2 children. He lives with his spouse. He is current everyday smoker. No alcohol or illicit drug use. REVIEW OF SYSTEMS: Unable to obtain secondary to altered mental status. PHYSICAL EXAMINATION: VITAL SIGNS: Temperature is 97.2, pulse is 103, respiratory rate 14, BP is 135/ 90, and he is 97% on 3 L. GENERAL: This is a chronically ill-appearing male, in no acute distress. HEENT: Normocephalic and atraumatic. NECK: Supple. CV: Regular rate and rhythm. He has tachycardia. LUNGS: He has diminished breath sounds and absent breath sounds at his right lower lobe. ABDOMEN: Soft and nontender. Bowel sounds are positive. EXTREMITIES: There is no clubbing or cyanosis. SKIN: No rash. HEMATOLOGIC: No petechiae or purpura. NEUROLOGIC: The patient is nonfocal. PSYCH: The patient is disoriented and not following commands. PERTINENT LABS AND X-RAYS: Current WBCs are 13.1, hemoglobin 12.2, hematocrit 38, platelet count is 226,000. He has 79% neutrophils, 7% lymphocytes, and 12% monocytes. Sodium 136, potassium 3.6, chloride 99, CO2 is 25, BUN is 47, creatinine 3.45, lactic acid is 2.4, calcium 8.1, phosphorus 5.5, magnesium 2.3, bilirubin 0.7, AST is 15, ALT is 7, and alkaline phosphatase is 144. Troponin is 0.107 serum total protein is 7.3, albumin 2.7, globulin 4.1. Urine showed 2+ bacteria. ASSESSMENT AND PLAN: 1. Stage 3 squamous cell carcinoma of the right lower lobe of lung. 2. Toxic metabolic encephalopathy. 3. Empyema. 4. Acute renal failure DISCUSSION: The patient has been started on empiric antibiotics and IV fluids. He has had hypoglycemic episodes on this admission and is being monitored closely. Await blood cultures results. He is a candidate for concurrent chemoradiation. This is done in the outpatient setting. We will provide supportive care and follow along with his hospital course. His MRI yesterday was negative for any metastatic lesions, so his altered mental status is likely toxic or metabolic. Thank you for the consult. Job ID: [id number] KAITLYN
[2019-03-16] MEDS: Atorvastatin Calcium 10 MG TAB PO SCH ×2 (20:18→20:37)
[2019-03-17] MEDS ORDERED: Morphine 2 MG/ML SYRINGE SLOW IVP SCH (01:00)
[2019-03-17] MEDS: Lorazepam 2 MG/ML VIAL SLOW IVP PRN ×2 (03:03→10:04)
[2019-03-17] MEDS: Albumin 25% 25 GM/100 ML BOT IVPB SCH (03:47)
[2019-03-17 04:41] LABS: #Lymphocytes 0.8 thou/uL (1.20-3.40); #Monocytes 1.4 thou/uL (0.11-0.59); #Neutrophils 8.6 thou/uL (1.40-6.50); %Basophils 0.1 % (0.0-1.0); %Eosinophils 0.1 % (0.0-10.0); %Lymphocytes 7.2 % (21.0-51.0); %Monocytes 13.4 % (0.0-10.0); %Neutrophils 79.3 % (42.0-75.0); Mean Corpuscular Hemoglobin 29.3 pg (27.0-31.0); Mean Corpuscular Volume 91.6 fL (78.0-98.0); Mean Platelet Volume 9.4 fL (7.4-10.4); Platelet Count 186 thou/uL (130-400); Red Blood Cell (RBC) Count 4.08 mill/uL (4.70-6.10); White Blood Cell (WBC) Count 10.8 thou/uL (4.8-10.8)
[2019-03-17 05:03] LABS: Anion Gap 23 mmol/L (10-20); BUN (Urea Nitrogen) 55 mg/dL (8.4-25.7); Calc. Creatinine Clearance 18 mL/min (70-130); Calcium 8.8 mg/dL (7.8-10.44); Carbon Dioxide 20 mmol/L (23-31); Chloride 93 mmol/L (98-107); Estimated GFR-MDRD 16; Glucose 403 mg/dL (80-115); Potassium 4.8 mmol/L (3.5-5.1); Sodium 131 mmol/L (136-145)
[2019-03-17] MEDS: Vancomycin HCl 500 MG in Sodium Chloride 0.9% 100 ML IVPB SCH (05:33)
[2019-03-17] MEDS: Dextrose 5 %-0.45 % NaCl 1,000 ML IV SCH ×2 (07:23→09:23)
[2019-03-17] MEDS: Aspirin 81 mg Enteric Coated Tablet PO SCH (07:23)
[2019-03-17] MEDS: Carvedilol 3.125 MG TAB PO SCH ×2 (07:24→21:47)
[2019-03-17] MEDS: Enoxaparin Sodium 30 MG/0.3 ML SYRINGE SC SCH (07:41)
[2019-03-17] MEDS: methylPREDNISolone Sod Succ 40 MG VIAL IVP SCH (07:41)
[2019-03-17] MEDS ORDERED: FLU VACC TS2019-20(65YR UP)/PF 180 MCG/0.5 ML SYRINGE IM ONE (08:00)
[2019-03-17] MEDS ORDERED: NPH, Human Insulin Isophane 300 UNIT/3 ML VIAL SC SCH (09:00)
[2019-03-17] MEDS ORDERED: methylPREDNISolone Sod Succ/PF 125 MG/2 ML VIAL IVP SCH (09:00)
[2019-03-17] MEDS ORDERED: methylPREDNISolone Sod Succ 40 MG VIAL IVP SCH (09:00)
--- NOTE | 2019-03-17 09:02 | CON ---
DATE OF CONSULTATION: 03/16/2019 REASON FOR CONSULTATION: Altered mental status, concern with possible lung infection. HISTORY OF PRESENT ILLNESS: A 68-year-old who has a history of coronary artery disease with stents and chronic smoking, who developed right lower lobe mass- like infiltrate and initially evaluated with a bronchoscopy by Dr. Kruse in July of this year. The bronchoscopy results demonstrated benign lung and bronchial parenchyma with mild chronic inflammation, but no malignancy. Acid-fast evaluation was done during this event and no acid bacilli were isolated from the specimen after 6 weeks. In January, a PET scan was done, I do not have the details of outpatient notes and he underwent a lung biopsy CT on February 16, which I diagnosed non-small cell lung cancer, probably squamous cell. The patient was being readied for chemo and radiation therapy when he developed weakness and confusional state with decreased oral intake. He was seen at the cancer center and managed conservatively. No changes were noted, he continued to have the symptoms of generalized malaise and weakness, decreased oral intake, presented again to the emergency room. He denied any fever. No sputum production. No hemoptysis or dyspnea. No abdominal pain. No genitourinary symptoms. No back pain. No joint symptoms. He was eventually admitted from the emergency room. PAST MEDICAL HISTORY: Includes coronary artery disease with prior [place] x2 with stents, type 2 diabetes, stage III lung cancer, coronary artery bypass graft surgery. SOCIAL HISTORY: Current smoker and lives with family, I believe in [place]. No alcoholic beverage use. ALLERGIES: NONE. FAMILY HISTORY: Noncontributory. CURRENT MEDICATIONS: 1. Albumin. 2. DuoNeb. 3. Ecotrin. 4. Cefepime. 5. Lovenox. 6. Apresoline. 8. Levofloxacin. 9. Medrol. 10. Ondansetron. 11. Vancomycin. PHYSICAL EXAMINATION: VITAL SIGNS: T-max 98.6, blood pressure 120/100, pulse ox 100 on 3 L nasal cannula, pulse 83, respirations 24. SKIN: With a peripheral IV access and a Kim catheter inserted. NEURO: He is able to communicate. He recognizes family member in the room. He knows the name of the hospital as [facility], but recognized [place]'s name after I mentioned to him. He knew the year, but not the month and he knows his name. HEENT: The ocular movements are conjugate. Pupils are equal. Conjunctivae somewhat pale. Oral cavity still with quite a few teeth in place with desiccated enamel and some periodontitis. NECK: No jugular venous distention. LUNGS: With diminished breath sounds at the right base with few crackles. No wheezing. HEART: S1 and S2. Regular rate. No S3 or S4. ABDOMEN: Soft, not distended or tender. No ascites. No bladder distention. EXTREMITIES: No joint inflammatory activity. Pulses are 1+ in dorsalis pedis. No edema. Plantar responses are flexor. No clonus. He moves all extremities equally. He is lightly confused. LABORATORY DATA: White cell count 13.1, hemoglobin 12, platelets 226, 79% neutrophils. Chemistry with sodium 136, creatinine 3.45, baseline was 1.35 in August 2018, glucose 84, phosphorus 5.5, magnesium 2.3, albumin 2.7. Nephrology consult has been obtained. IMPRESSION: Acute kidney injury on top of chronic renal insufficiency with a possibility of associated prerenal factor. The patient has had an abdomen and pelvis exam without IV contrast and it showed consolidation, loculated fluid collection posterior right lung base, thickened urinary bladder wall. Comparing with the chest CT from July 2018, it is fairly similar with a low-density center mild peripheral enhancement. ASSESSMENT: 1. Coronary artery disease with prior stents. 2. Chronic smoking, still actively smoking. 3. Stage III non-small cell lung cancer, probably squamous cell, in preparation for chemoradiation therapy. 4. Delirium. 5. Findings on lung imaging study DISCUSSION: The radiological findings are fairly similar to the findings in July of this year and I believe those represent the progression of the malignancy with central necrosis. Although a superimposed infection is not ruled out, this appears to be less likely. Paraneoplastic encephalitis is something to worry about or just plain toxic metabolic encephalopathy. It will be impossible to completely rule out superimposed infectious process, so he might continue the treatment for community-acquired pneumonia without necessarily vancomycin or cefepime in a shorter duration of therapy. The central area of lucency is due to the area of tumor necrosis rather than intrapulmonary abscess. Job ID: [id number] [facility]
--- NOTE | 2019-03-17 11:08 | PRG ---
DATE OF SERVICE: 03/17/2019 SUBJECTIVE: Mr. Tejeda is a 68-year-old white male who was initially admitted for confusion. He is being seen by the Renal Service for his acute kidney injury. The working basis for the renal dysfunction is that he may have underlying hemodynamically-mediated renal dysfunction. His creatinine remains significantly unimproved. His most recent creatinine is 3.45, and he is relatively unimproved. His most recent creatinine on March 17 is now 3.84, which is near his admission number of 3.95. This patient has also multiple medical problems which include lung cancer. A cardiac echo has been done, which showed a significantly decreased ejection fraction of 15% to 20%. He still remains confused at the present time. OBJECTIVE: VITAL SIGNS: Blood pressure is 107/72, heart rate 93, and respiratory rate 14. GENERAL: Awake, confused, not in distress. SKIN: Adequate turgor. HEENT: He has pinkish conjunctivae. Anicteric sclerae. NECK: No neck mass. No carotid bruits. No JVD. CHEST: No deformities. LUNGS: Decreased breath sounds. HEART: Normal sinus rhythm. No murmur. No gallops. No rubs. ABDOMEN: Globular. Soft. Nontender. No masses. EXTREMITIES: No edema. No deformities. MEDICATIONS: Of March 17, 2019, were reviewed. LABORATORY DATA: Laboratories of March 17, 2019; white count 10.8, hemoglobin 12. Sodium 131, potassium 4.8, chloride 93, carbon dioxide 20, BUN 55, creatinine 3.84, glucose 403, and calcium 8.8. ASSESSMENT AND PLAN: 1. Acute kidney injury - superimposed hemodynamically-mediated renal dysfunction. Continue supportive care. There is no indication for any dialytic intervention. If needed, diuretics can be resumed with careful monitoring of the renal function. 2. Shortness of breath, multifactorial etiology, superimposed congestive heart failure due to the much decreased ejection fraction with this patient. 3. Overall, prognosis remains guarded with this patient. Recheck basic metabolic profile and CBC in a.m. Job ID: [id number]
[2019-03-17] MEDS: Ziprasidone 20 MG VIAL IM PRN ×2 (12:10→17:59)
--- NOTE | 2019-03-17 14:05 | PRG ---
DATE OF SERVICE: 03/17/2019 SUBJECTIVE: Mr. Tejeda was seen and evaluated by Dr. Kael Larry yesterday. Mr. Tejeda recently presented with altered mental status. He is currently confused. He cannot provide a good history. Mr. Tejeda is last seen by myself in 2010. He underwent bypass surgery. He has not been seen since that time period. He recently presented with altered mental status and possible pneumonia. He also has lung cancer. Overnight, he did develop a nonsustained VT x22 beats. His LVEF was markedly diminished with LVEF estimated at 15% to 20% on echo performed on 03/16/2019. OBJECTIVE: VITAL SIGNS: Blood pressure 106/64, pulse 87, temperature afebrile. LUNGS: Clear to auscultation. HEART: Regular rate and rhythm. ABDOMEN: Soft, nontender, nondistended. EXTREMITIES: No edema. NEURO: He is not oriented to time person or place. He is uncooperative. PERTINENT LABORATORY DATA: Sodium 131, chloride 93, CO2 of 20, creatinine 3.84. Hemoglobin 12.0, hematocrit 37.4. IMPRESSION: 1. Nonsustained ventricular tachycardia. 2. Mental status changes. 3. Lung cancer. 4. Acute on chronic renal insufficiency. 5. Coronary artery disease. 6. Status post bypass surgery. RECOMMENDATIONS: Certainly, a complex case. Current etiology to his mental status change is unknown. This may be due to a paraneoplastic encephalitis as per Dr. Caputo. He may also have a dysrhythmia given he has had nonsustained VT with LVEF 15% to 20%. Based on his comorbidities, prognosis does appear guarded. He is currently on antibiotic therapy for possible pneumonia and abscess. Family is not currently available to discuss findings. We will try and reach out to family. We will continue beta-haley therapy as blood pressure tolerates and increase as needed. May also consider amiodarone therapy. Job ID: [id number]
[2019-03-17] MEDS ORDERED: Insulin Glargine 15 UNITS in Pre-Filled Syringe 1 EACH SC SCH (14:15)
--- NOTE | 2019-03-17 14:47 | PRG ---
DATE OF SERVICE: 03/17/2019 SERVICE: Pulmonary Medicine. INTERVAL HISTORY: The patient is doing really well from respiratory standpoint. Breathing comfortably. He has no complaints of chest discomfort. He remains on room air. He is encephalopathic. At times, he is a little confused and agitated. He got a dose of Geodon and Ativan. As such, currently he is awake, but slurring his speech, and in general not perfectly appropriate, though he is moving everything. PHYSICAL EXAMINATION: VITAL SIGNS: Afebrile, pulse 87, blood pressure 106/64, respirations 21, and saturation 99%, currently on room air. HEENT: dry mucus membranes. GENERAL: The patient is awake and alert, in no apparent distress. LUNGS: Decent air entry. There is a prolonged expiratory phase. Crackles and rhonchi are both present, particularly on the right. HEART: Normal rate, regular. ABDOMEN: Soft, nontender, and nondistended. Bowel sounds are positive. MUSCULOSKELETAL: No cyanosis or clubbing. There is diffuse 3+ pitting throughout. NEUROLOGIC: Grossly nonfocal. LABORATORY DATA: WBC 10.8, hemoglobin 12.0, platelets 186,000. Creatinine 3.84 , which has abruptly trended upwards over the last year. BUN 55, anion gap 23, bicarb 20. Cortisol is normal, TSH is within normal limits. Albumin 2.7 on presentation. Blood cultures x2 are unremarkable. IMAGIN. Echocardiogram demonstrates 15% to 20% ejection fraction with diastolic dysfunction. Left atrium is moderately dilated. Moderate to severe mitral regurgitation is present. The right atrium is also moderately enlarged. 2. CT of the abdomen and pelvis demonstrates some chronic lung changes in the right basilar region. This was previously demonstrated in July of 2018. Perhaps, little bit worse now than it was, but I do not believe this represents an acute abscess/infectious process. ASSESSMENT: 1. Metabolic encephalopathy. 2. Acute kidney injury on chronic kidney disease. 3. Acute on chronic systolic, diastolic, and valvular heart failure with severe mitral regurgitation. 4. Squamous cell carcinoma of the lung, locally aggressive. 5. Chronic kidney disease, stage IV. 6. Chronic obstructive pulmonary disease. DISCUSSION AND PLAN: I will put the patient on dobutamine to see if we can improve cardiac output and contractility. Bicarb drip will be initiated. We will give the patient a little bit of insulin. The patient will remain in the ICU until his mentation improves a little bit, and he can wean off the dobutamine drip. I would like to give him some Lasix as he is significantly volume overloaded, but his mucous membranes are dry as a bone. This is certainly not a good combination to have with advanced heart failure. Pulmonary/Critical Care will follow closely. Job ID: [id number] MTDD
--- NOTE | 2019-03-17 14:48 | PDOC.HOSPP ---
- Subjective Encounter Date: 03/17/19 Encounter Time: 11:00 Subjective: pt is agitated, confused - Objective Vital Signs & Weight: Vital Signs (12 hours) Temp Pulse Ox 03/17/19 10:26 97.5 F L 03/17/19 08:00 95 03/17/19 07:13 98.6 F 03/17/19 03:50 98.0 F Weight Weight 158 lb 11.725 oz Most Recent Monitor Data Heart Rate from ECG 84 NIBP 114/59 NIBP BP-Mean 77 Respiration from ECG 20 SpO2 90 I&O: 03/16/19 03/17/19 03/18/19 06:59 06:59 06:59 Intake Total 1500 Output Total 750 Balance 750 Result Diagrams: 03/17/19 04:21 03/17/19 04:21 Additional Labs: Accuchecks 03/17/19 03/17/19 03/17/19 10:11 07:27 05:21 POC Glucose 342 H 405 H 402 H 03/17/19 03/16/19 03/16/19 02:50 20:03 18:15 POC Glucose 391 H 218 H 177 H 03/16/19 03/16/19 15:09 07:41 POC Glucose 127 H 190 H Radiology Reviewed by me: Yes EKG Reviewed by me: Yes Hospitalist ROS - Review of Systems ROS unobtainable: due to mental status - Medication Medications: Active Medications Generic Name Dose Route Start Last Admin Trade Name Freq PRN Reason Stop Dose Admin Aspirin 81 mg 03/17/19 09:00 03/17/19 07:23 Ecotrin PO Not Given DAILY [facility] Atorvastatin Calcium 10 mg 03/16/19 21:00 03/16/19 20:37 Lipitor PO Not Given HS ZAINA Carvedilol 3.125 mg 03/16/19 09:00 03/17/19 07:24 Coreg PO Not Given BID ZAINA Enoxaparin Sodium 30 mg 03/17/19 09:00 03/17/19 07:41 Lovenox SC 30 mg 0900 ZAINA Administration Cefepime HCl 2 gm/ Sodium 100 mls @ 200 mls/hr 03/16/19 16:00 03/16/19 15:55 Chloride IVPB 100 mls 1600 ZAINA Administration Levofloxacin 250 mg/ Device 50 mls @ 100 mls/hr 03/16/19 18:00 03/16/19 15:50 IVPB 50 mls 1800 ZAINA Administration Vancomycin HCl 500 mg/ Sodium 100 mls @ 100 mls/hr 03/17/19 05:00 03/17/19 05 :33 Chloride IVPB 100 mls 0500 ZAINA Administration Lorazepam 1 mg 03/16/19 02:20 03/17/19 10:04 Ativan SLOW IVP 1 mg Q6H PRN Administration Anxiety/Agitation Methylprednisolone Sodium Succinate 40 mg 03/16/19 09:00 03/17/19 07:41 Solu-Medrol IVP 40 mg DAILY ZAINA Administration Ziprasidone 10 mg 03/17/19 11:58 03/17/19 12:10 Geodon IM 10 mg Q2H PRN Administration Agitation - Exam General Appearance: NAD General - other findings: agitated Eye: PERRL, anicteric sclera ENT: normocephalic atraumatic, no oropharyngeal lesions Neck: supple, symmetric, no JVD, no lymphadenopathy Heart: RRR, no murmur, no gallops, no rubs Respiratory: CTAB, no wheezes, no rales, no ronchi Gastrointestinal: soft, non-tender, non-distended, normal bowel sounds Extremities: no cyanosis, no clubbing Skin: normal turgor, no lesions Neurological: no focal deficits Musculoskeletal: normal tone, normal strength Psychiatric: not oriented Hosp A/P (1) Acute renal failure Status: Acute (2) DM type 2 (diabetes mellitus, type 2) Status: Chronic Qualifiers: Diabetes mellitus half-way insulin use: without marine oil terminal superintendent use Diabetes mellitus complication status: with hypoglycemia Diabetes mellitus complication detail: without coma Qualified Code(s): E11.649 - Type 2 diabetes mellitus with hypoglycemia without coma (3) Empyema lung Code(s): J86.9 - PYOTHORAX WITHOUT FISTULA Status: Acute (4) Encephalopathy acute Code(s): G93.40 - ENCEPHALOPATHY, UNSPECIFIED Status: Acute (5) CAD (coronary artery disease) Code(s): I25.10 - ATHSCL HEART DISEASE OF [place] CORONARY ARTERY W/O ANG PCTRS Status: Chronic Qualifiers: Coronary Disease-Associated Artery/Lesion type: [place] artery [place] vs. transplanted heart: [place] heart Associated angina: without angina Qualified Code(s): I25.10 - Atherosclerotic heart disease of [place] coronary artery without angina pectoris (6) HTN (hypertension) Code(s): I10 - ESSENTIAL (PRIMARY) HYPERTENSION Status: Chronic Qualifiers: Hypertension type: essential hypertension Qualified Code(s): I10 - Essential (primary) hypertension (7) Lung cancer, lower lobe Code(s): C34.30 - MALIGNANT NEOPLASM OF LOWER LOBE, UNSP BRONCHUS OR LUNG Status: Chronic Qualifiers: Laterality: right Qualified Code(s): C34.31 - Malignant neoplasm of lower lobe, right bronchus or lung (8) Acute systolic (congestive) heart failure Code(s): I50.21 - ACUTE SYSTOLIC (CONGESTIVE) HEART FAILURE Status: Acute - Plan old records reviewed/req, continue antibiotics , due to dex with bicarbonate and dobutamine drip his BP is high, will control with insulin, continue bicarbonate drip and agree with dobutamine drip, cardiology and pulmonary and oncology recommendation appreciated, will use geodon for extreme agitation, will monitor, continue empiric antibiotics for now , will monitor in imcu
[2019-03-17] MEDS: Sodium Bicarbonate 150 MEQ in Dextrose 5% in Water 1,000 ML IV SCH (15:19)
[2019-03-17] MEDS: DOBUTamine 500 mg/250 ml 250 ML IVPB SCH (15:59)
[2019-03-17] MEDS: Cefepime 2 GM in Sodium Chloride 0.9% 100 ML IVPB SCH (16:54)
[2019-03-17] MEDS ORDERED: HumaLOG 300 UNITS/3 ML VIAL SC PRN (20:54)
[2019-03-17] MEDS: Atorvastatin Calcium 10 MG TAB PO SCH (21:48)
[2019-03-18] MEDS ORDERED: HumaLOG 300 UNITS/3 ML VIAL SC SCH (01:45)
[2019-03-18] MEDS: Ziprasidone 20 MG VIAL IM PRN ×2 (02:12→06:17)
[2019-03-18] MEDS: DOBUTamine 500 mg/250 ml 250 ML IVPB SCH ×2 (03:08→14:28)
[2019-03-18] MEDS: Lorazepam 2 MG/ML VIAL SLOW IVP PRN (04:09)
[2019-03-18 04:35] LABS: #Lymphocytes 0.8 thou/uL (1.20-3.40); #Monocytes 1.4 thou/uL (0.11-0.59); #Neutrophils 9.6 thou/uL (1.40-6.50); %Basophils 0.1 % (0.0-1.0); %Lymphocytes 6.5 % (21.0-51.0); %Monocytes 11.9 % (0.0-10.0); %Neutrophils 81.5 % (42.0-75.0); Hemoglobin 11.9 g/dL (14.0-18.0); Mean Corpuscular HGB CONC 31.8 g/dL (32.0-36.0); Mean Corpuscular Hemoglobin 28.5 pg (27.0-31.0); Mean Corpuscular Volume 89.7 fL (78.0-98.0); Mean Platelet Volume 9.8 fL (7.4-10.4); Platelet Count 177 thou/uL (130-400); RBC Distribution Width 14.1 % (11.5-14.5); Red Blood Cell (RBC) Count 4.16 mill/uL (4.70-6.10); White Blood Cell (WBC) Count 11.8 thou/uL (4.8-10.8)
[2019-03-18 05:02] LABS: Vancomycin, Trough 10.1 ug/mL
[2019-03-18 05:05] LABS: Anion Gap 20 mmol/L (10-20); BUN (Urea Nitrogen) 78 mg/dL (8.4-25.7); Calc. Creatinine Clearance 16 mL/min (70-130); Calcium 8.5 mg/dL (7.8-10.44); Carbon Dioxide 21 mmol/L (23-31); Chloride 94 mmol/L (98-107); Estimated GFR-MDRD 13; Glucose 461 mg/dL (80-115); Potassium 4.7 mmol/L (3.5-5.1); Sodium 130 mmol/L (136-145)
[2019-03-18] MEDS: Sodium Bicarbonate 150 MEQ in Dextrose 5% in Water 1,000 ML IV SCH ×2 (05:41→19:59)
[2019-03-18] MEDS: Furosemide 100 MG/10 ML VIAL SLOW IVP SCH (05:41)
[2019-03-18] MEDS: Vancomycin HCl 750 MG in Sodium Chloride 0.9% 250 ML 250 ML IVPB SCH (05:46)
[2019-03-18] MEDS: Carvedilol 3.125 MG TAB PO SCH ×2 (07:28→20:00)
[2019-03-18] MEDS: Aspirin 81 mg Enteric Coated Tablet PO SCH (07:28)
[2019-03-18] MEDS: Vancomycin HCl 500 MG in Sodium Chloride 0.9% 100 ML IVPB SCH (07:38)
[2019-03-18] MEDS: methylPREDNISolone Sod Succ 40 MG VIAL IVP SCH (07:59)
[2019-03-18] MEDS: Insulin Glargine 15 UNITS in Pre-Filled Syringe 1 EACH SC SCH (07:59)
[2019-03-18] MEDS: Enoxaparin Sodium 30 MG/0.3 ML SYRINGE SC SCH (07:59)
[2019-03-18] MEDS ORDERED: Dextrose 5% in Water 1,000 ML IV PRN (09:46)
--- NOTE | 2019-03-18 10:24 | RAD ---
EXAM: Portable chest PROVIDED CLINICAL HISTORY: Dyspnea COMPARISON: 03/15/2019 FINDINGS: Mild improvement in right basilar airspace disease. Additional significant interval change with respe ct to the prior examination is not apparent. IMPRESSION: As above.
[2019-03-18] MEDS: HumaLOG 300 UNITS/3 ML VIAL SC PRN ×2 (10:54→16:48)
--- NOTE | 2019-03-18 11:29 | PDOC.HOSPP ---
- Subjective Encounter Date: 03/18/19 Encounter Time: 10:00 Subjective: pt is encephalopathic, Patient seen and examined. No overnight events - Objective Vital Signs & Weight: Vital Signs (12 hours) Temp Pulse Resp Pulse Ox 03/18/19 11:09 96.8 F L 03/18/19 07:41 100 03/18/19 07:14 96.9 F L 03/18/19 06:30 97 03/18/19 06:28 102 H 25 H 97 03/18/19 04:00 97.3 F L Weight Weight 158 lb 11.725 oz Most Recent Monitor Data Heart Rate from ECG 105 NIBP 129/107 NIBP BP-Mean 114 Respiration from ECG 19 SpO2 97 I&O: 03/17/19 03/18/19 03/19/19 06:59 06:59 06:59 Intake Total 3398 516 1366 Output Total 750 300 350 Balance 750 600 750 Result Diagrams: 03/18/19 04:06 03/18/19 04:06 Additional Labs: Accuchecks 03/18/19 03/18/19 03/17/19 10:47 06:07 23:56 POC Glucose 368 H 417 H 447 H 03/17/19 03/17/19 20:44 16:13 POC Glucose 477 H 385 H Radiology Reviewed by me: Yes EKG Reviewed by me: Yes Hospitalist ROS - Review of Systems ROS unobtainable: due to mental status - Medication Medications: Active Medications Generic Name Dose Route Start Last Admin Trade Name Freq PRN Reason Stop Dose Admin Albuterol/Ipratropium 3 ml 03/17/19 19:00 03/18/19 06:28 Duoneb NEB 3 ml [id number] ZAINA Administration Aspirin 81 mg 03/17/19 09:00 03/18/19 07:28 Ecotrin PO Not Given DAILY ZAINA Atorvastatin Calcium 10 mg 03/16/19 21:00 03/17/19 21:48 Lipitor PO Not Given HS ZAINA Carvedilol 3.125 mg 03/16/19 09:00 03/18/19 07:28 Coreg PO Not Given BID ZAINA Enoxaparin Sodium 30 mg 03/17/19 09:00 03/18/19 07:59 Lovenox SC 30 mg 0900 ZAINA Administration Furosemide 80 mg 03/18/19 06:00 03/18/19 05:41 Lasix SLOW IVP 80 mg 0600 ZAINA Administration Cefepime HCl 2 gm/ Sodium 100 mls @ 200 mls/hr 03/16/19 16:00 03/17/19 16:54 Chloride IVPB 100 mls 1600 ZAINA Administration Levofloxacin 250 mg/ Device 50 mls @ 100 mls/hr 03/16/19 18:00 03/17/19 16:55 IVPB 50 mls 1800 ZAINA Administration Sodium Bicarbonate 150 meq/ 1,150 mls @ 75 mls/hr 03/17/19 14:15 03/18/19 05: 41 Dextrose/Water IV 1,150 mls .[id number] ZAINA Administration Dobutamine HCl/Dextrose 250 mls @ 10.8 mls/hr 03/17/19 14:15 03/18/19 03:08 Dobutamine 500 Mg/250 Ml IVPB 250 mls INF ZAINA Administration Protocol 5 MCG/KG/MIN Insulin Glargine 15 units/ 0.15 mls @ 0 mls/hr 03/18/19 09:00 03/18/19 07:59 Miscellaneous Medication SC 0.15 mls QAM ZAINA Administration Vancomycin HCl 750 mg/ Sodium 250 mls @ 250 mls/hr 03/18/19 06:00 03/18/19 05 :46 Chloride IVPB 250 mls 0600 ZAINA Administration Insulin Human Lispro 0 units 03/18/19 09:36 03/18/19 10:54 Humalog SC 13 units .AGGRESSIVE SLIDING PRN Administration Aggressive Correctional Scale Lorazepam 1 mg 03/16/19 02:20 03/18/19 04:09 Ativan SLOW IVP 1 mg Q6H PRN Administration Anxiety/Agitation Methylprednisolone Sodium Succinate 40 mg 03/16/19 09:00 03/18/19 07:59 Solu-Medrol IVP 40 mg DAILY ZAINA Administration Ziprasidone 10 mg 03/17/19 11:58 03/18/19 06:17 Geodon IM 10 mg Q2H PRN Administration Agitation - Exam General Appearance: NAD Eye: PERRL, anicteric sclera ENT: normocephalic atraumatic, no oropharyngeal lesions Neck: supple, symmetric, no JVD Heart: no murmur, no gallops, no rubs Respiratory - other findings: bilateral coarse sound Gastrointestinal: soft, non-tender, non-distended Extremities: no clubbing, no edema Skin: normal turgor Neurological: no focal deficits Musculoskeletal: normal tone Psychiatric: not oriented Hosp A/P (1) Acute metabolic encephalopathy Code(s): G93.41 - METABOLIC ENCEPHALOPATHY Status: Acute (2) Acute systolic (congestive) heart failure Code(s): I50.21 - ACUTE SYSTOLIC (CONGESTIVE) HEART FAILURE Status: Acute (3) Acute renal failure Status: Acute (4) DM type 2 (diabetes mellitus, type 2) Status: Chronic Qualifiers: Diabetes mellitus ad terminal makeup operator insulin use: without ad terminal makeup operator use Diabetes mellitus complication status: with hypoglycemia Diabetes mellitus complication detail: without coma Qualified Code(s): E11.649 - Type 2 diabetes mellitus with hypoglycemia without coma (5) Empyema lung Code(s): J86.9 - PYOTHORAX WITHOUT FISTULA Status: Acute (6) CAD (coronary artery disease) Code(s): I25.10 - ATHSCL HEART DISEASE OF [place] CORONARY ARTERY W/O ANG PCTRS Status: Chronic Qualifiers: Coronary Disease-Associated Artery/Lesion type: [place] artery [place] vs. transplanted heart: [place] heart Associated angina: without angina Qualified Code(s): I25.10 - Atherosclerotic heart disease of [place] coronary artery without angina pectoris (7) HTN (hypertension) Code(s): I10 - ESSENTIAL (PRIMARY) HYPERTENSION Status: Chronic Qualifiers: Hypertension type: essential hypertension Qualified Code(s): I10 - Essential (primary) hypertension (8) Lung cancer, lower lobe Code(s): C34.30 - MALIGNANT NEOPLASM OF LOWER LOBE, UNSP BRONCHUS OR LUNG Status: Chronic Qualifiers: Laterality: right Qualified Code(s): C34.31 - Malignant neoplasm of lower lobe, right bronchus or lung - Plan old records reviewed/req, continue antibiotics 03/17/19, due to dex with bicarbonate and dobutamine drip his BP is high, will control with insulin, continue bicarbonate drip and agree with dobutamine drip, cardiology and pulmonary and oncology recommendation appreciated, will use geodon for extreme agitation, will monitor, continue empiric antibiotics for now , will monitor in imcu 03/18/19, as pt is on dobutamine and bicarbonate drip with dextrose solution and steroid, making his blood sugar very high, will add levemir 15 unit bid and change humalog aggressive sliding scale, nephrology following, on empiric antibiotics, will monitor, medication reviewed as above, symptomatic treatment
--- NOTE | 2019-03-18 11:53 | PRG ---
DATE OF SERVICE: 03/18/2019 SUBJECTIVE: Mr. Tejeda is a 68-year-old white male, who was seen initially for his acute kidney injury, which we felt was hemodynamically-mediated renal dysfunction. After volume repletion including albumin infusion, the renal function remains unimproved and continues to worsen. My concern is that this patient may have a superimposed acute tubular necrosis. Currently, patient remains unimproved. He continues to be confused. He is being treated for possible lung infection. Please note, of interest, the patient had a cardiac echo which showed an EF of 15% to 20%. No acute events. The patient continues to worsen with his renal function. OBJECTIVE: VITAL SIGNS: Blood pressure is 129/107, heart rate 105, respiratory rate 19, O2 saturation 97%, temperature 96.8. GENERAL: Noted to be awake, but confused, not in distress. SKIN: Adequate turgor. HEENT: Pinkish conjunctivae, anicteric sclerae. NECK: No neck mass. No carotid bruits. No JVD. CHEST: No deformities. LUNGS: Decreased breath sounds. HEART: Normal sinus rhythm. No murmur. No gallops. No rubs. ABDOMEN: Globular, soft, nontender, no masses. EXTREMITIES: No edema, no deformities. MEDICATIONS: March 18, 2019, was reviewed. LABORATORY DATA: March 18, 2019, white count 11.8, hemoglobin 11.9. Sodium 130, potassium 4.7, chloride 94, carbon dioxide 21, BUN 78, creatinine 4.51. GFR 13 mL/minute. Glucose 461, calcium 8.5. ASSESSMENT AND PLAN: 1. Acute kidney injury-worsening renal dysfunction. Initially it was felt this could be a hemodynamically-mediated renal dysfunction. Cardiac echo showed a decreased EF of 15% to 20%. He has been started on IV dobutamine. If renal function will not improve with this maneuver, he may have a superimposed acute tubular necrosis. We will discuss with the family should his renal function further worsen, where his GFR will drop down to less than 10, if they are interested in pursuing dialytic intervention in this patient. Overall, prognosis with this patient remains poor. 2. Pneumonia-on empiric IV antibiotics. 3. Congestive heart failure. Currently, the patient is now on IV dobutamine. 4. Agree with current management. Continue supportive care. Job ID: [id number]
[2019-03-18 15:20] LABS: Actual Bicarbonate (HCO3a) 25.7 mEq/L (22-28); Base Excess (BEa) 1.5 mEq/L (-2.0 to +3.0); CO2 Tension 39.4 mmHg (35.0-45.0); Calcium, Ionized 1.09 mmol/L (1.12-1.30); Carboxyhemoglobin (COHb) 1.6 gm% (0.0-3.0); Hemoglobin (Hb) 12.7 g/dL (14.0-18.0); Potassium - ABG Lab 3.91 mmol/L (3.70-5.30); pH, Arterial 7.43 (7.35-7.45)
[2019-03-18 15:36] LABS: O2 Tension (PaO2) 57.4 mmHg (> 80.0); Puncture Site RR
[2019-03-18] MEDS: Cefepime 2 GM in Sodium Chloride 0.9% 100 ML IVPB SCH (16:48)
[2019-03-18] MEDS: Atorvastatin Calcium 10 MG TAB PO SCH (20:01)
[2019-03-18] MEDS ORDERED: Insulin Glargine 15 UNITS in Pre-Filled Syringe 1 EACH SC SCH (21:00)
[2019-03-18] MEDS ORDERED: Vancomycin HCl 750 MG in Sodium Chloride 0.9% 250 ML 250 ML IVPB SCH (23:59)
[2019-03-19] MEDS: DOBUTamine 500 mg/250 ml 250 ML IVPB SCH ×2 (00:02→15:19)
[2019-03-19 06:10] LABS: Anion Gap 16 mmol/L (10-20); BUN (Urea Nitrogen) 74 mg/dL (8.4-25.7); Calc. Creatinine Clearance 23 mL/min (70-130); Calcium 8.5 mg/dL (7.8-10.44); Carbon Dioxide 29 mmol/L (23-31); Chloride 96 mmol/L (98-107); Estimated GFR-MDRD 17; Potassium 3.5 mmol/L (3.5-5.1); Sodium 137 mmol/L (136-145); Vancomycin, Trough 12.7 ug/mL
[2019-03-19 06:24] LABS: Glucose 59 mg/dL (80-115)
[2019-03-19 06:38] LABS: Band 3 % (5-11); Hemoglobin 11.4 g/dL (14.0-18.0); Lymphocytes 6 % (21-51); MDiff Complete? YES; Mean Corpuscular HGB CONC 32.9 g/dL (32.0-36.0); Mean Corpuscular Hemoglobin 29.4 pg (27.0-31.0); Mean Corpuscular Volume 89.2 fL (78.0-98.0); Mean Platelet Volume 9.6 fL (7.4-10.4); Monocytes 7 % (0-10); Neutrophil 84 % (42-75); Platelet Count 114 thou/uL (130-400); Platelet Morphology Comment Appears Decreased; RBC Distribution Width 14.1 % (11.5-14.5); Red Blood Cell (RBC) Count 3.88 mill/uL (4.70-6.10); White Blood Cell (WBC) Count 20.4 thou/uL (4.8-10.8)
[2019-03-19] MEDS: Dextrose 50% Abboject 50 ML SYRINGE IVP PRN ×2 (06:42→12:39)
[2019-03-19] MEDS: Vancomycin HCl 750 MG in Sodium Chloride 0.9% 250 ML 250 ML IVPB SCH (06:44)
[2019-03-19] MEDS: Furosemide 100 MG/10 ML VIAL SLOW IVP SCH (06:45)
[2019-03-19] MEDS: Carvedilol 3.125 MG TAB PO SCH ×2 (09:56→20:46)
[2019-03-19] MEDS: Aspirin 81 mg Enteric Coated Tablet PO SCH (09:56)
[2019-03-19] MEDS: Enoxaparin Sodium 30 MG/0.3 ML SYRINGE SC SCH (09:59)
[2019-03-19] MEDS: methylPREDNISolone Sod Succ 40 MG VIAL IVP SCH ×3 (09:59→23:14)
--- NOTE | 2019-03-19 10:53 | PDOC.HOSPP ---
- Subjective Encounter Date: 03/19/19 Encounter Time: 10:20 Subjective: pt is confused but noticed some improvement, still has dyspnea - Objective Vital Signs & Weight: Vital Signs (12 hours) Temp Pulse Resp Pulse Ox 03/19/19 10:26 98.6 F 03/19/19 07:40 100 03/19/19 07:17 98.3 F 03/19/19 06:48 118 H 20 97 03/19/19 06:00 97 03/19/19 03:06 97.8 F 03/19/19 00:38 118 H 20 93 L 03/18/19 23:14 97.5 F L Weight Weight 178 lb 7 oz Most Recent Monitor Data Heart Rate from ECG 116 NIBP 125/71 NIBP BP-Mean 89 Respiration from ECG 23 SpO2 96 I&O: 03/18/19 03/19/19 03/20/19 06:59 06:59 06:59 Intake Total 900 3965 Output Total 300 2350 Balance 600 1615 Result Diagrams: 03/19/19 05:34 03/19/19 05:34 Additional Labs: Accuchecks 03/19/19 03/19/19 03/19/19 08:18 05:44 04:38 POC Glucose 83 74 61 L 03/19/19 03/19/19 03/18/19 04:06 00:08 21:17 POC Glucose 52 L* 81 127 H 03/18/19 03/18/19 16:29 10:47 POC Glucose 225 H 368 H EKG Reviewed by me: Yes Hospitalist ROS - Review of Systems ROS unobtainable: due to mental status - Medication Medications: Active Medications Generic Name Dose Route Start Last Admin Trade Name Freq PRN Reason Stop Dose Admin Albuterol/Ipratropium 3 ml 03/17/19 19:00 03/19/19 06:48 Duoneb NEB 3 ml [id number] ZAINA Administration Aspirin 81 mg 03/17/19 09:00 03/19/19 09:56 Ecotrin PO 81 mg DAILY ZAINA Administration Atorvastatin Calcium 10 mg 03/16/19 21:00 03/18/19 20:01 Lipitor PO Not Given HS ZAINA Carvedilol 3.125 mg 03/16/19 09:00 03/19/19 09:56 Coreg PO 3.125 mg BID ZAINA Administration Dextrose/Water 25 gm 03/18/19 09:46 03/19/19 06:42 Dextrose 50% IVP 25 gm PRN PRN Administration HYPOGLYCEMIA PROTOCOL Enoxaparin Sodium 30 mg 03/17/19 09:00 03/19/19 09:59 Lovenox SC 30 mg 0900 ZAINA Administration Furosemide 80 mg 03/18/19 06:00 03/19/19 06:45 Lasix SLOW IVP 80 mg 0600 ZAINA Administration Glucagon 1 mg 03/18/19 09:46 03/19/19 04:09 Glucagon IM 1 mg PRN PRN Administration HYPOGLYCEMIA PROTOCOL Cefepime HCl 2 gm/ Sodium 100 mls @ 200 mls/hr 03/16/19 16:00 03/18/19 16:48 Chloride IVPB 100 mls 1600 ZAINA Administration Levofloxacin 250 mg/ Device 50 mls @ 100 mls/hr 03/16/19 18:00 03/18/19 16:47 IVPB 50 mls 1800 ZAINA Administration Sodium Bicarbonate 150 meq/ 1,150 mls @ 75 mls/hr 03/17/19 14:15 03/18/19 19: 59 Dextrose/Water IV 1,150 mls .[id number] ZAINA Administration Dobutamine HCl/Dextrose 250 mls @ 10.8 mls/hr 03/17/19 14:15 03/19/19 00:02 Dobutamine 500 Mg/250 Ml IVPB 250 mls INF ZAINA Administration Protocol 5 MCG/KG/MIN Vancomycin HCl 750 mg/ Sodium 250 mls @ 250 mls/hr 03/18/19 06:00 03/19/19 06 :44 Chloride IVPB 250 mls 0600 ZAINA Administration Insulin Human Lispro 0 units 03/18/19 09:36 03/18/19 16:48 Humalog SC 6 units .AGGRESSIVE SLIDING PRN Administration Aggressive Correctional Scale Lorazepam 1 mg 03/16/19 02:20 03/18/19 04:09 Ativan SLOW IVP 1 mg Q6H PRN Administration Anxiety/Agitation Methylprednisolone Sodium Succinate 40 mg 03/16/19 09:00 03/19/19 09:59 Solu-Medrol IVP 40 mg DAILY ZAINA Administration Ziprasidone 10 mg 03/17/19 11:58 03/18/19 06:17 Geodon IM 10 mg Q2H PRN Administration Agitation - Exam General Appearance: NAD, awake alert Eye: PERRL, anicteric sclera ENT: normocephalic atraumatic Neck: supple, symmetric, no JVD Heart: no murmur, no gallops, irregular Respiratory: rhonchi, wheezes Respiratory - other findings: coarse sound bilateral Gastrointestinal: soft, non-tender Extremities: no clubbing, no edema Skin: normal turgor Musculoskeletal: normal tone, normal strength Psychiatric: not oriented Hosp A/P (1) Acute metabolic encephalopathy Code(s): G93.41 - METABOLIC ENCEPHALOPATHY Status: Acute (2) Acute systolic (congestive) heart failure Code(s): I50.21 - ACUTE SYSTOLIC (CONGESTIVE) HEART FAILURE Status: Acute (3) Acute renal failure Status: Acute (4) DM type 2 (diabetes mellitus, type 2) Status: Chronic Qualifiers: Diabetes mellitus termite control technician insulin use: without jail use Diabetes mellitus complication status: with hypoglycemia Diabetes mellitus complication detail: without coma Qualified Code(s): E11.649 - Type 2 diabetes mellitus with hypoglycemia without coma (5) Empyema lung Code(s): J86.9 - PYOTHORAX WITHOUT FISTULA Status: Acute (6) CAD (coronary artery disease) Code(s): I25.10 - ATHSCL HEART DISEASE OF [place] CORONARY ARTERY W/O ANG PCTRS Status: Chronic Qualifiers: Coronary Disease-Associated Artery/Lesion type: [place] artery [place] vs. transplanted heart: [place] heart Associated angina: without angina Qualified Code(s): I25.10 - Atherosclerotic heart disease of [place] coronary artery without angina pectoris (7) HTN (hypertension) Code(s): I10 - ESSENTIAL (PRIMARY) HYPERTENSION Status: Chronic Qualifiers: Hypertension type: essential hypertension Qualified Code(s): I10 - Essential (primary) hypertension (8) Lung cancer, lower lobe Code(s): C34.30 - MALIGNANT NEOPLASM OF LOWER LOBE, UNSP BRONCHUS OR LUNG Status: Chronic Qualifiers: Laterality: right Qualified Code(s): C34.31 - Malignant neoplasm of lower lobe, right bronchus or lung (9) Oropharyngeal dysphagia Code(s): R13.12 - DYSPHAGIA, OROPHARYNGEAL PHASE Status: Acute - Plan old records reviewed/req, continue antibiotics 03/17/19, due to dex with bicarbonate and dobutamine drip his BP is high, will control with insulin, continue bicarbonate drip and agree with dobutamine drip, cardiology and pulmonary and oncology recommendation appreciated, will use geodon for extreme agitation, will monitor, continue empiric antibiotics for now , will monitor in imcu 03/18/19, as pt is on dobutamine and bicarbonate drip with dextrose solution and steroid, making his blood sugar very high, will add levemir 15 unit bid and change humalog aggressive sliding scale, nephrology following, on empiric antibiotics, will monitor, medication reviewed as above, symptomatic treatment 03/19/19- pt has now hypoglycemia, will change to levemir 8 unit sc bid, continue cefepime, continue bicarbonate and dobutamine drip, consult palliative care for goal of care
--- NOTE | 2019-03-19 11:21 | PRG ---
DATE OF SERVICE: 03/19/2019 SERVICE: Renal Medicine. SUBJECTIVE: Mr. Tejeda is a 68-year-old white male being followed by the Renal Service for his acute kidney injury that was hemodynamically-mediated renal dysfunction. He has also history of CHF and significant decrease in EF. The patient was started on IV dobutamine recently by his pens and pencils dipper and this has helped to improve the renal function. He is diuresing. In addition, shortness of breath is improving. No other complaints today. OBJECTIVE: VITAL SIGNS: Blood pressure is 125/71, heart rate 106, respiratory rate 23, and pulse ox 96%. GENERAL: Noted to be awake, supine, comfortable, not in overt distress. SKIN: Adequate turgor. HEENT: He has pinkish conjunctivae. Anicteric sclerae. NECK: No neck mass. No carotid bruits. No JVD. CHEST: No deformities. LUNGS: Decreased breath sounds. No wheezing. HEART: Normal sinus rhythm. No murmur. No gallops. No rubs. ABDOMEN: Globular, soft, and nontender. No masses. EXTREMITIES: No edema. No deformities. MEDICATIONS: Medications of March 19, 2019, was reviewed. LABORATORY DATA: Laboratories of March 19, 2019; white count 20.4, hemoglobin 11.4. Sodium 137, potassium 3.5, chloride 96, carbon dioxide 29, BUN 74, creatinine 3.53, GFR 17 mL/minute, and calcium 8.5. ASSESSMENT AND PLAN: 1. Acute kidney injury - superimposed hemodynamically-mediated renal dysfunction. Renal function has improved with initiation of IV dobutamine. He is also diuresing well. 2. Pneumonia, currently on IV antibiotics. 3. Congestive heart failure, clinically improving. Overall, agree with current management. Recheck basic metabolic panel in a.m. Job ID: [id number]
[2019-03-19] MEDS: Sodium Bicarbonate 150 MEQ in Dextrose 5% in Water 1,000 ML IV SCH (12:12)
[2019-03-19] MEDS: Insulin Glargine 15 UNITS in Pre-Filled Syringe 1 EACH SC SCH (13:04)
[2019-03-19] MEDS ORDERED: Magnesium 2 GM/50 ML 2 GM in Premix Bag 1 BAG IVPB SCH (13:30)
[2019-03-19 13:39] LABS: Actual Bicarbonate (HCO3a) 32.6 mEq/L (22-28); Base Excess (BEa) 9.1 mEq/L (-2.0 to +3.0); CO2 Tension 40.4 mmHg (35.0-45.0); Calcium, Ionized 1.06 mmol/L (1.12-1.30); Carboxyhemoglobin (COHb) 1.7 gm% (0.0-3.0); Hemoglobin (Hb) 12.3 g/dL (14.0-18.0); O2 Tension (PaO2) 57.5 mmHg (> 80.0); Potassium - ABG Lab 3.15 mmol/L (3.70-5.30); Puncture Site RB; pH, Arterial 7.53 (7.35-7.45)
--- NOTE | 2019-03-19 13:41 | PRG ---
DATE OF SERVICE: 03/19/2019 SUBJECTIVE: Patel Tejeda is more alert today. He is quite bronchospastic. OBJECTIVE: VITAL SIGNS: Heart rate is 116, blood pressure 119/67, respiratory rates in the teens. LUNGS: Remarkable for tight wheezes diffusely. HEART: Regular rhythm. ABDOMEN: Soft. EXTREMITIES: Without asymmetry. LABORATORY DATA: White count 20.4, hemoglobin 11.4, and platelets 114. Electrolytes are unremarkable. BUN 74, creatinine 3.53. Intake and output, positive 1615. IMPRESSION: 1. Congestive heart failure. 2. Lung cancer. 3. Renal failure. PLAN: He is still full code. He may require noninvasive ventilatory support. We will get a blood gas at this point in time. I think his prognosis is dismal. Job ID: [id number]
[2019-03-19] MEDS ORDERED: acetaZOLAMIDE Sodium 500 mg Vial IVP SCH (14:18)
[2019-03-19] MEDS: Cefepime 2 GM in Sodium Chloride 0.9% 100 ML IVPB SCH (16:29)
[2019-03-19] MEDS: Atorvastatin Calcium 10 MG TAB PO SCH (20:46)
[2019-03-19] MEDS ORDERED: Insulin Glargine 8 UNITS in Pre-Filled Syringe 1 EACH SC SCH (21:00)
[2019-03-19] MEDS ORDERED: Metoprolol Tartrate 5 MG/5 ML VIAL ONE (22:11)
[2019-03-20 03:58] LABS: #Lymphocytes 0.6 thou/uL (1.20-3.40); #Monocytes 0.6 thou/uL (0.11-0.59); %Lymphocytes 4.3 % (21.0-51.0); %Monocytes 4.8 % (0.0-10.0); %Neutrophils 90.8 % (42.0-75.0); Hemoglobin 11.5 g/dL (14.0-18.0); Mean Corpuscular HGB CONC 32.5 g/dL (32.0-36.0); Mean Corpuscular Hemoglobin 29.2 pg (27.0-31.0); Mean Corpuscular Volume 89.8 fL (78.0-98.0); Platelet Count 134 thou/uL (130-400); RBC Distribution Width 14.3 % (11.5-14.5); Red Blood Cell (RBC) Count 3.92 mill/uL (4.70-6.10); White Blood Cell (WBC) Count 13.2 thou/uL (4.8-10.8)
[2019-03-20 04:26] LABS: ALT (SGPT) 121 U/L (8-55); AST (SGOT) 90 U/L (5-34); Albumin 2.9 g/dL (3.4-4.8); Alkaline Phosphatase 94 U/L (40-110); Anion Gap 15 mmol/L (10-20); BUN (Urea Nitrogen) 63 mg/dL (8.4-25.7); Bilirubin, Total 1.6 mg/dL (0.2-1.2); Calc. Creatinine Clearance 29 mL/min (70-130); Calcium 8.7 mg/dL (7.8-10.44); Carbon Dioxide 33 mmol/L (23-31); Chloride 94 mmol/L (98-107); Estimated GFR-MDRD 23; Globulin 3.1 g/dL (2.4-3.5); Glucose 156 mg/dL (80-115); Potassium 3.5 mmol/L (3.5-5.1); Sodium 138 mmol/L (136-145)
[2019-03-20] MEDS: Furosemide 100 MG/10 ML VIAL SLOW IVP SCH (05:34)
[2019-03-20] MEDS: methylPREDNISolone Sod Succ 40 MG VIAL IVP SCH ×4 (05:35→23:42)
--- NOTE | 2019-03-20 08:54 | PRG ---
DATE OF SERVICE: 03/18/2019 SUBJECTIVE: Patel Tejeda remains encephalopathic. OBJECTIVE: VITAL SIGNS: Hemodynamics are stable. He is currently still protecting his airway, but will not follow commands and stay awake. LUNGS: Clear. HEART: Regular rhythm. ABDOMEN: Soft. EXTREMITIES: Without edema. Blood gas did not show any acid-base disorder that was significant for any CO2 retention. His pH 7.43, CO2 of 39, pO2 of 57. Hemoglobin on his blood gas is 12.7, potassium 3.9. IMPRESSION: 1. Persistent encephalopathy ? related to his malignancy. He is adequately protecting his airway at this time. 2. Non-small cell carcinoma invasion based on tests I have reviewed. It is felt that by my associates of his radiographic findings are related to his malignancy and not an acute infectious process. Other problems include coronary artery disease, diabetes, hypertension, and coronary artery bypass grafting on two occasions. MRI did not show any metastatic lesions. It is not reasonable at this point in time to suggest that he has a viral encephalitis. I would wonder about a paraneoplastic encephalitis. We will continue with current care. Prognosis is quite guarded. Job ID: [id number]
[2019-03-20] MEDS ORDERED: Insulin Glargine 8 UNITS in Pre-Filled Syringe 1 EACH SC SCH (09:00)
--- NOTE | 2019-03-20 09:08 | PRG ---
DATE OF SERVICE: 03/20/2019 SUBJECTIVE: Mr. Tejeda appears to be improving mentally. He still appears markedly weak. His creatinine has not significantly improved. His last LVEF estimated 10% to 15% by echo. He has a previous history of bypass surgery in 2005. He is currently on a dobutamine at 5 mcg per minute. OBJECTIVE: VITAL SIGNS: Blood pressure 126/79, pulse 111, respirations 20. LUNGS: Crackles noted bilaterally. HEART: Regular rate and rhythm. EXTREMITIES: 1+ pitting edema. PERTINENT LABORATORY DATA: Hemoglobin 11.5. Creatinine is 2.78, which is down from 3.5 and peak at 4.5. Albumin level 2.9. IMPRESSION: 1. Acute mental status changes. 2. ? pneumonia. 3. Ischemic cardiomyopathy. 4. Nonsustained ventricular tachycardia. 5. Significant deconditioning. 6. Acute on chronic renal insufficiency. 7. Lung cancer. RECOMMENDATIONS: Certainly, Mr. Tejeda' prognosis appears poor. He has multiorgan failure with cardiomyopathy and renal insufficiency. He has also had mental status change, although it slowly improving. At this point, we will recommend decreasing the dobutamine to 2.5 mcg per kg per minute. We will see if his kidney function tolerates. If he is felt to be dobutamine dependent, may need to consider long-term prognosis discussed with family. Based on his comorbidities including cardiomyopathy, renal insufficiency, and lung cancer, may need comfort measures if does not improve significantly. Job ID: [id number]
[2019-03-20] MEDS: Enoxaparin Sodium 30 MG/0.3 ML SYRINGE SC SCH (09:58)
[2019-03-20] MEDS: Carvedilol 3.125 MG TAB PO SCH ×2 (10:02→19:44)
[2019-03-20] MEDS: Aspirin 81 mg Enteric Coated Tablet PO SCH (10:02)
--- NOTE | 2019-03-20 10:08 | PRG ---
DATE OF SERVICE: 03/20/2019 SUBJECTIVE: Mr. Tejeda is a 68-year-old white male, who was seen by the Renal Service for his acute kidney injury. He had a superimposed hemodynamically-mediated renal dysfunction. Due to his decreased EF, dobutamine has been started, and with initiation of dobutamine, his CHF has improved as well as the renal function. He has no new complaints today. The patient's shortness of breath is stable, it is not any worse and actually it is improving. OBJECTIVE: VITAL SIGNS: Blood pressure is 118/75 with a heart rate of 115, respiratory rate 27, and pulse ox 94%. GENERAL: The patient is awake, supine, comfortable, not in distress. SKIN: Adequate turgor. HEENT: Pinkish conjunctivae. Anicteric sclerae. No neck mass. No carotid bruits. No JVD. CHEST: No deformities. LUNGS: Decreased breath sounds. HEART: Tachycardic. No murmur, no gallops, no rubs. ABDOMEN: Globular, soft, nontender. No masses. EXTREMITIES: No edema. No deformities. MEDICATIONS: Of March 20, 2019, were reviewed. LABORATORY DATA: Of March 20, 2019: Sodium 138, potassium 3.5, chloride 94, carbon dioxide 33, BUN 63, creatinine 6.78, glucose 156, AST 90, ALT 121, hemoglobin 11.5. ASSESSMENT AND PLAN: 1. Acute kidney injury - superimposed hemodynamically-mediated renal dysfunction. Improving renal function with initiation of cardiac inotropic - IV dobutamine. He is also currently on a diuretic regimen. There is no indication for any dialytic intervention. Agree with current management. 2. Congestive heart failure, clinically improving with IV dobutamine. Currently, on Lasix. Overall prognosis remains guarded. Job ID: [id number]
[2019-03-20] MEDS: DOBUTamine 500 mg/250 ml 250 ML IVPB SCH (11:15)
--- NOTE | 2019-03-20 12:02 | PDOC.HOSPP ---
- Subjective Encounter Date: 03/20/19 Encounter Time: 10:30 Subjective: Patient seen and examined. No overnight events - Objective Vital Signs & Weight: Vital Signs (12 hours) Temp Pulse Resp Pulse Ox 03/20/19 11:11 113 H 20 97 03/20/19 11:09 98.3 F 03/20/19 08:12 95 03/20/19 08:10 111 H 28 H 95 03/20/19 07:14 97.9 F 03/20/19 03:55 98.4 F 03/20/19 01:49 113 H 22 H 89 L 03/20/19 00:05 96 Weight Weight 175 lb 2 oz Most Recent Monitor Data Heart Rate from ECG 115 NIBP 118/75 NIBP BP-Mean 89 Respiration from ECG 27 SpO2 94 I&O: 03/19/19 03/20/19 03/21/19 06:59 06:59 06:59 Intake Total 3965 1946 Output Total 2350 3425 Balance 1615 -2579 Result Diagrams: 03/20/19 03:46 03/20/19 03:46 Additional Labs: Accuchecks 03/20/19 03/20/19 03/19/19 08:13 00:44 19:45 POC Glucose 201 H 134 H 100 03/19/19 03/19/19 03/19/19 18:18 15:57 15:07 POC Glucose 103 71 73 03/19/19 03/19/19 03/19/19 13:12 12:39 12:08 POC Glucose 119 H 38 L* 46 L* EKG Reviewed by me: Yes Hospitalist ROS - Review of Systems ROS unobtainable: due to mental status ENT: denies: ear pain, ear discharge, nose pain, nose discharge, nose congestion , mouth pain, mouth swelling, throat pain, throat swelling, other Respiratory: denies: cough, dry, shortness of breath, hemoptysis, SOB with excertion, pleuritic pain, sputum, wheezing, other Cardiovascular: denies: chest pain, palpitations, orthopnea, paroxysmal noc. dyspnea, edema, light headedness, other Gastrointestinal: denies: nausea, vomiting, abdominal pain, diarrhea, constipation, melena, hematochezia, other Genitourinary: denies: dysuria, frequency, incontinence, hematuria, retention, other Other: not reliable - Medication Medications: Active Medications Generic Name Dose Route Start Last Admin Trade Name Freq PRN Reason Stop Dose Admin Albuterol/Ipratropium 3 ml 03/19/19 14:30 03/20/19 11:11 Duoneb NEB 3 ml [id number] ZAINA Administration Aspirin 81 mg 03/17/19 09:00 03/20/19 10:02 Ecotrin PO 81 mg DAILY ZAINA Administration Atorvastatin Calcium 10 mg 03/16/19 21:00 03/19/19 20:46 Lipitor PO 10 mg HS ZAINA Administration Carvedilol 3.125 mg 03/16/19 09:00 03/20/19 10:02 Coreg PO 3.125 mg BID ZAINA Administration Dextrose/Water 25 gm 03/18/19 09:46 03/19/19 12:39 Dextrose 50% IVP 25 gm PRN PRN Administration HYPOGLYCEMIA PROTOCOL Enoxaparin Sodium 30 mg 03/17/19 09:00 03/20/19 09:58 Lovenox SC 30 mg 0900 ZAINA Administration Furosemide 80 mg 03/18/19 06:00 03/20/19 05:34 Lasix SLOW IVP 80 mg 0600 ZAINA Administration Glucagon 1 mg 03/18/19 09:46 03/19/19 04:09 Glucagon IM 1 mg PRN PRN Administration HYPOGLYCEMIA PROTOCOL Cefepime HCl 2 gm/ Sodium 100 mls @ 200 mls/hr 03/16/19 16:00 03/19/19 16:29 Chloride IVPB 100 mls 1600 ZAINA Administration Levofloxacin 250 mg/ Device 50 mls @ 100 mls/hr 03/16/19 18:00 03/19/19 18:38 IVPB 50 mls 1800 ZAINA Administration Dobutamine HCl/Dextrose 250 mls @ 10.8 mls/hr 03/17/19 14:15 03/20/19 11:15 Dobutamine 500 Mg/250 Ml IVPB 250 mls INF ZAINA Administration Protocol 5 MCG/KG/MIN Methylprednisolone Sodium Succinate 40 mg 03/19/19 18:00 03/20/19 05:35 Solu-Medrol IVP 40 mg Q6HR ZAINA Administration Ziprasidone 10 mg 03/17/19 11:58 03/18/19 06:17 Geodon IM 10 mg Q2H PRN Administration Agitation - Exam General Appearance: NAD, awake alert Eye: PERRL, anicteric sclera ENT: normocephalic atraumatic, no oropharyngeal lesions Neck: supple, symmetric, no JVD Heart: no murmur, no gallops Respiratory - other findings: coarse sound Gastrointestinal: soft, non-tender, non-distended Extremities: no cyanosis, no clubbing Skin: normal turgor, no lesions Neurological: no focal deficits Musculoskeletal: normal tone, normal strength Psychiatric: normal affect Hosp A/P (1) Acute metabolic encephalopathy Code(s): G93.41 - METABOLIC ENCEPHALOPATHY Status: Acute (2) Acute systolic (congestive) heart failure Code(s): I50.21 - ACUTE SYSTOLIC (CONGESTIVE) HEART FAILURE Status: Acute (3) Acute renal failure Status: Acute (4) DM type 2 (diabetes mellitus, type 2) Status: Chronic Qualifiers: Diabetes mellitus terminal press operator insulin use: without terminal press operator use Diabetes mellitus complication status: with hypoglycemia Diabetes mellitus complication detail: without coma Qualified Code(s): E11.649 - Type 2 diabetes mellitus with hypoglycemia without coma (5) Empyema lung Code(s): J86.9 - PYOTHORAX WITHOUT FISTULA Status: Acute (6) CAD (coronary artery disease) Code(s): I25.10 - ATHSCL HEART DISEASE OF [place] CORONARY ARTERY W/O ANG PCTRS Status: Chronic Qualifiers: Coronary Disease-Associated Artery/Lesion type: [place] artery [place] vs. transplanted heart: [place] heart Associated angina: without angina Qualified Code(s): I25.10 - Atherosclerotic heart disease of [place] coronary artery without angina pectoris (7) HTN (hypertension) Code(s): I10 - ESSENTIAL (PRIMARY) HYPERTENSION Status: Chronic Qualifiers: Hypertension type: essential hypertension Qualified Code(s): I10 - Essential (primary) hypertension (8) Lung cancer, lower lobe Code(s): C34.30 - MALIGNANT NEOPLASM OF LOWER LOBE, UNSP BRONCHUS OR LUNG Status: Chronic Qualifiers: Laterality: right Qualified Code(s): C34.31 - Malignant neoplasm of lower lobe, right bronchus or lung (9) Oropharyngeal dysphagia Code(s): R13.12 - DYSPHAGIA, OROPHARYNGEAL PHASE Status: Acute - Plan old records reviewed/req, continue antibiotics, respiratory therapy 03/17/19, due to dex with bicarbonate and dobutamine drip his BP is high, will control with insulin, continue bicarbonate drip and agree with dobutamine drip, cardiology and pulmonary and oncology recommendation appreciated, will use geodon for extreme agitation, will monitor, continue empiric antibiotics for now , will monitor in imcu 03/18/19, as pt is on dobutamine and bicarbonate drip with dextrose solution and steroid, making his blood sugar very high, will add levemir 15 unit bid and change humalog aggressive sliding scale, nephrology following, on empiric antibiotics, will monitor, medication reviewed as above, symptomatic treatment 03/19/19- pt has now hypoglycemia, will change to levemir 8 unit sc bid, continue cefepime, continue bicarbonate and dobutamine drip, consult palliative care for goal of care 03/20/19- renal function improving, hypoglycemia improving, continue dobutamine drip, supportive care, palliative care for goal of care, PT/OT/ST
--- NOTE | 2019-03-20 14:12 | PRG ---
DATE OF SERVICE: 03/20/2019 SUBJECTIVE: Patel Tejeda is 100% better than yesterday. He is not wheezing. He is bright-eyed. He is conversant. OBJECTIVE: VITAL SIGNS: Heart rate is 113. He is afebrile. Respiratory rate is 20, oximetry 97 on 3 liters nasal cannula. Blood pressure 118/75. LUNGS: Clear today. HEART: Regular rhythm. IMPRESSION: 1. Nonsmall cell lung cancer invading the chest wall. 2. Heart failure. 3. CKD. His creatinine is 2.78 today, it was 3.53 yesterday, 4.51 day before. Overall, he is slowly improving. He does have multiple problems with a poor prognosis Job ID: [id number] [facility]
[2019-03-20] MEDS ORDERED: Insulin Glargine 5 UNITS in Pre-Filled Syringe 1 EACH SC SCH ×2 (15:15→21:00)
[2019-03-20] MEDS: Cefepime 2 GM in Sodium Chloride 0.9% 100 ML IVPB SCH (16:18)
[2019-03-20] MEDS: Atorvastatin Calcium 10 MG TAB PO SCH (19:45)
[2019-03-21 04:26] LABS: Anion Gap 14 mmol/L (10-20); BUN (Urea Nitrogen) 77 mg/dL (8.4-25.7); Calc. Creatinine Clearance 27 mL/min (70-130); Carbon Dioxide 34 mmol/L (23-31); Chloride 96 mmol/L (98-107); Estimated GFR-MDRD 21; Glucose 147 mg/dL (80-115); Potassium 3.3 mmol/L (3.5-5.1); Sodium 141 mmol/L (136-145)
[2019-03-21] MEDS: methylPREDNISolone Sod Succ 40 MG VIAL IVP SCH ×4 (05:39→23:56)
[2019-03-21] MEDS: Enoxaparin Sodium 30 MG/0.3 ML SYRINGE SC SCH (08:13)
[2019-03-21] MEDS: Dextrose 50% Abboject 50 ML SYRINGE IVP PRN (08:13)
[2019-03-21] MEDS: Aspirin 81 mg Enteric Coated Tablet PO SCH (08:13)
[2019-03-21] MEDS: Carvedilol 3.125 MG TAB PO SCH ×2 (08:13→21:25)
[2019-03-21] MEDS ORDERED: Insulin Glargine 5 UNITS in Pre-Filled Syringe 1 EACH SC SCH (09:00)
[2019-03-21] MEDS: Furosemide 100 MG/10 ML VIAL SLOW IVP SCH (10:24)
--- NOTE | 2019-03-21 11:38 | PDOC.HOSPP ---
- Subjective Encounter Date: 03/21/19 Encounter Time: 10:45 Subjective: Patient seen and examined. pt is confused, No overnight events - Objective Vital Signs & Weight: Vital Signs (12 hours) Temp Pulse Resp Pulse Ox 03/21/19 10:25 82 13 98 03/21/19 08:00 95 03/21/19 07:23 98.2 F 03/21/19 07:10 88 28 H 95 03/21/19 05:00 18 96 03/21/19 03:38 97.6 F 03/21/19 03:00 18 98 03/21/19 00:21 91 L 03/21/19 00:00 98.6 F Weight Weight 170 lb 1.6 oz Most Recent Monitor Data Heart Rate from ECG 91 NIBP 125/78 NIBP BP-Mean 93 Respiration from ECG 11 SpO2 100 I&O: 03/20/19 03/21/19 03/22/19 06:59 06:59 06:59 Intake Total 1946 620 Output Total 7478 6570 Balance -7709 -0312 Result Diagrams: 03/20/19 03:46 03/21/19 03:42 Additional Labs: Accuchecks 03/21/19 03/21/19 03/21/19 09:34 08:08 03:45 POC Glucose 136 H 58 L* 145 H 03/20/19 03/20/19 03/20/19 23:46 19:43 15:35 POC Glucose 316 H 383 H 310 H 03/20/19 12:26 POC Glucose 309 H EKG Reviewed by me: Yes Hospitalist ROS - Review of Systems ROS unobtainable: due to mental status - Medication Medications: Active Medications Generic Name Dose Route Start Last Admin Trade Name Freq PRN Reason Stop Dose Admin Albuterol/Ipratropium 3 ml 03/19/19 14:30 03/21/19 10:25 Duoneb NEB 3 ml [id number] ZAINA Administration Aspirin 81 mg 03/17/19 09:00 03/21/19 08:13 Ecotrin PO 81 mg DAILY ZAINA Administration Atorvastatin Calcium 10 mg 03/16/19 21:00 03/20/19 19:45 Lipitor PO 10 mg HS ZAINA Administration Carvedilol 3.125 mg 03/16/19 09:00 03/21/19 08:13 Coreg PO 3.125 mg BID ZAINA Administration Dextrose/Water 25 gm 03/18/19 09:46 03/21/19 08:13 Dextrose 50% IVP 25 gm PRN PRN Administration HYPOGLYCEMIA PROTOCOL Enoxaparin Sodium 30 mg 03/17/19 09:00 03/21/19 08:13 Lovenox SC 30 mg 0900 ZAINA Administration Glucagon 1 mg 03/18/19 09:46 03/19/19 04:09 Glucagon IM 1 mg PRN PRN Administration HYPOGLYCEMIA PROTOCOL Cefepime HCl 2 gm/ Sodium 100 mls @ 200 mls/hr 03/16/19 16:00 03/20/19 16:18 Chloride IVPB 100 mls 1600 ZAINA Administration Levofloxacin 250 mg/ Device 50 mls @ 100 mls/hr 03/16/19 18:00 03/20/19 17:38 IVPB 50 mls 1800 ZAINA Administration Dobutamine HCl/Dextrose 250 mls @ 5.4 mls/hr 03/17/19 14:15 03/20/19 11:15 Dobutamine 500 Mg/250 Ml IVPB 250 mls INF ZAINA Administration Protocol 2.5 MCG/KG/MIN Methylprednisolone Sodium Succinate 40 mg 03/19/19 18:00 03/21/19 05:39 Solu-Medrol IVP 40 mg Q6HR ZAINA Administration Ziprasidone 10 mg 03/17/19 11:58 03/18/19 06:17 Geodon IM 10 mg Q2H PRN Administration Agitation - Exam General Appearance: NAD Eye: PERRL, anicteric sclera ENT: normocephalic atraumatic Neck: supple, symmetric, no JVD Neck - other findings: gurgling sound in throat Heart: RRR, no murmur, no gallops Respiratory - other findings: coarse sound bilateral upper part Gastrointestinal: soft, non-tender, non-distended, normal bowel sounds Extremities: no cyanosis, no clubbing Skin: normal turgor, no lesions Neurological: no focal deficits Musculoskeletal: normal tone, normal strength Psychiatric: not oriented Hosp A/P (1) Acute metabolic encephalopathy Code(s): G93.41 - METABOLIC ENCEPHALOPATHY Status: Acute (2) Acute systolic (congestive) heart failure Code(s): I50.21 - ACUTE SYSTOLIC (CONGESTIVE) HEART FAILURE Status: Acute (3) Acute renal failure Status: Acute (4) DM type 2 (diabetes mellitus, type 2) Status: Chronic Qualifiers: Diabetes mellitus petroleum terminal plant operator insulin use: without residential use Diabetes mellitus complication status: with hypoglycemia Diabetes mellitus complication detail: without coma Qualified Code(s): E11.649 - Type 2 diabetes mellitus with hypoglycemia without coma (5) Empyema lung Code(s): J86.9 - PYOTHORAX WITHOUT FISTULA Status: Acute (6) CAD (coronary artery disease) Code(s): I25.10 - ATHSCL HEART DISEASE OF [place] CORONARY ARTERY W/O ANG PCTRS Status: Chronic Qualifiers: Coronary Disease-Associated Artery/Lesion type: [place] artery [place] vs. transplanted heart: [place] heart Associated angina: without angina Qualified Code(s): I25.10 - Atherosclerotic heart disease of [place] coronary artery without angina pectoris (7) HTN (hypertension) Code(s): I10 - ESSENTIAL (PRIMARY) HYPERTENSION Status: Chronic Qualifiers: Hypertension type: essential hypertension Qualified Code(s): I10 - Essential (primary) hypertension (8) Lung cancer, lower lobe Code(s): C34.30 - MALIGNANT NEOPLASM OF LOWER LOBE, UNSP BRONCHUS OR LUNG Status: Chronic Qualifiers: Laterality: right Qualified Code(s): C34.31 - Malignant neoplasm of lower lobe, right bronchus or lung (9) Oropharyngeal dysphagia Code(s): R13.12 - DYSPHAGIA, OROPHARYNGEAL PHASE Status: Acute - Plan old records reviewed/req, continue antibiotics, social services assistant, respiratory therapy Consults: Palliative Care 03/17/19, due to dex with bicarbonate and dobutamine drip his BP is high, will control with insulin, continue bicarbonate drip and agree with dobutamine drip, cardiology and pulmonary and oncology recommendation appreciated, will use geodon for extreme agitation, will monitor, continue empiric antibiotics for now , will monitor in imcu 03/18/19, as pt is on dobutamine and bicarbonate drip with dextrose solution and steroid, making his blood sugar very high, will add levemir 15 unit bid and change humalog aggressive sliding scale, nephrology following, on empiric antibiotics, will monitor, medication reviewed as above, symptomatic treatment 03/19/19- pt has now hypoglycemia, will change to levemir 8 unit sc bid, continue cefepime, continue bicarbonate and dobutamine drip, consult palliative care for goal of care 03/20/19- renal function improving, hypoglycemia improving, continue dobutamine drip, supportive care, palliative care for goal of care, PT/OT/ST 03/21/19- given his poor po intake and renal failur, he gets hypoglycemia, will dc long acting insulin and only cover if needed with mild scale, reduce dobutamine 2.5, monitor in imcu, medication reviewed and continue to provide symptomatic treatment, palliative care on board for goal of care with family
[2019-03-21] MEDS ORDERED: Potassium Chloride 20 MEQ TAB PO SCH (11:45)
[2019-03-21] MEDS ORDERED: DOBUTamine 500 mg/250 ml 250 ML IVPB SCH (11:45)
[2019-03-21] MEDS: Dextrose 10% in Water 1,000 ML IV SCH (12:13)
--- NOTE | 2019-03-21 12:17 | PRG ---
DATE OF SERVICE: 03/21/2019 SUBJECTIVE: Mr. Tejeda is a 68-year-old white male, who was seen by the Renal Service for his acute kidney injury that was acute hemodynamically renal dysfunction secondary to his CHF/decreased EF. In the interim, he has been started on IV dobutamine and was placed on Lasix 80 mg IV daily. Renal function is stabilizing except today creatinine is slightly higher at 2.93 mg% and yesterday this was at 2.78 mg%. His diuretics have been adjusted downwards. His IV dobutamine is also being tapered. He voices no new complaints. He tells me his breathing is comfortable. OBJECTIVE: VITAL SIGNS: Blood pressure 125/78, heart rate 82, respiratory rate 13, and pulse ox 98% on 2 L. GENERAL: Awake, alert, supine, comfortable, not in distress. SKIN: Adequate turgor. HEENT: He has pinkish conjunctivae. Anicteric sclerae. No neck mass. No carotid bruits. No JVD. CHEST: No deformities. LUNGS: Decreased breath sounds. HEART: Normal sinus rhythm. No murmur. No gallops. No rubs. ABDOMEN: Globular, soft, and nontender. No masses. EXTREMITIES: No edema. No deformities. MEDICATIONS: Of this March 21, 2019, was reviewed. LABORATORY DATA: March 20, 2019; white count 13.2, hemoglobin 11.5. March 21, 2019; sodium 141, potassium 3.3, chloride 96, carbon dioxide 34, BUN 77, creatinine 2.93, GFR 21 mL/minute, and calcium 9.0. MEDICATIONS: Of March 21, 2019, was reviewed. ASSESSMENT AND PLAN: 1. Mild hypokalemia. P.r.n. potassium replacement. 2. Acute kidney injury-superimposed hemodynamically-mediated renal dysfunction. Relatively stable renal function. Agree with decreased dose of Lasix. Currently, Lasix has been changed from 80 mg IV daily to 40 mg tablet once a day. Please note, IV dobutamine is also being tapered. No indication for any dialytic intervention. 3. Congestive heart failure, clinically improving. Currently, on maintenance diuretics. Job ID: [id number] [facility]
--- NOTE | 2019-03-21 14:35 | PRG ---
DATE OF SERVICE: 03/21/2019 SUBJECTIVE: Mr. Tejeda says he continues to improve. OBJECTIVE: VITAL SIGNS: His heart rate is 82, respiratory rate is 13, oximetry is 98% on 2 L, blood pressure is 122/77. LUNGS: Clear. HEART: Regular rhythm. ABDOMEN: Soft. LABORATORY DATA: Glucose dropped to 58 this morning again since he had a long-acting insulin, I am told. ASSESSMENT AND PLAN: Tight control of his diabetes is not a priority given his severe cardiomyopathy and his lung cancer. We will continue to follow. Probably, needs to stay in a monitored bed, but he could move to telemetry. Job ID: [id number]
[2019-03-21] MEDS: Isosorbide Dinitrate 20 MG TAB PO SCH ×2 (15:19→21:25)
[2019-03-21] MEDS: hydrALAZINE 25 MG TAB PO SCH ×2 (15:19→21:25)
[2019-03-21] MEDS: Cefepime 2 GM in Sodium Chloride 0.9% 100 ML IVPB SCH (15:20)
[2019-03-21] MEDS: Atorvastatin Calcium 10 MG TAB PO SCH (21:25)
[2019-03-21] MEDS: HumaLOG 300 UNITS/3 ML VIAL SC PRN (23:59)
[2019-03-22 04:25] LABS: Anion Gap 12 mmol/L (10-20); BUN (Urea Nitrogen) 82 mg/dL (8.4-25.7); Calc. Creatinine Clearance 27 mL/min (70-130); Calcium 8.7 mg/dL (7.8-10.44); Carbon Dioxide 34 mmol/L (23-31); Chloride 96 mmol/L (98-107); Estimated GFR-MDRD 22; Glucose 228 mg/dL (80-115); Potassium 3.3 mmol/L (3.5-5.1); Sodium 139 mmol/L (136-145)
[2019-03-22] MEDS: Dextrose 10% in Water 1,000 ML IV SCH (05:26)
[2019-03-22] MEDS: methylPREDNISolone Sod Succ 40 MG VIAL IVP SCH ×3 (05:26→21:21)
[2019-03-22] MEDS: Aspirin 81 mg Enteric Coated Tablet PO SCH (08:30)
[2019-03-22] MEDS: hydrALAZINE 25 MG TAB PO SCH ×3 (08:30→21:23)
[2019-03-22] MEDS: Carvedilol 3.125 MG TAB PO SCH ×2 (08:30→21:21)
[2019-03-22] MEDS: Enoxaparin Sodium 30 MG/0.3 ML SYRINGE SC SCH (08:30)
[2019-03-22] MEDS: Isosorbide Dinitrate 20 MG TAB PO SCH ×3 (08:30→21:22)
[2019-03-22] MEDS: Furosemide 40 MG TAB PO SCH (08:30)
--- NOTE | 2019-03-22 09:23 | PRG ---
DATE OF SERVICE: 03/22/2019 SERVICE: Renal Medicine. SUBJECTIVE: Mr. Tejeda is a 68-year-old white male with known multiple medical problems, which include his lung cancer as well as severe cardiomyopathy. He was seen by the Renal Service for his acute kidney injury that was hemodynamically-mediated renal dysfunction. Renal function has been stabilizing. He has had received IV dobutamine and is on a diuretic regimen. His diuretics were adjusted downward recently by his cash applications analyst. This morning, he voices no new complaints. His breathing is comfortable. OBJECTIVE: VITAL SIGNS: Blood pressure 119/75, heart rate 81, and respiratory rate 22. GENERAL: The patient is awake, alert, supine, comfortable, not in distress. SKIN: Adequate turgor. HEENT: He has pinkish conjunctivae. Anicteric sclerae. NECK: No neck mass. No carotid bruits. No JVD. CHEST: No deformities. LUNGS: Decreased breath sounds. HEART: Normal sinus rhythm. No murmur. No gallops. No rubs. ABDOMEN: Globular, soft, and nontender. No masses. EXTREMITIES: No edema. No deformities. MEDICATIONS: Medications of March 22, 2019, were reviewed. LABORATORY DATA: Laboratories of March 22, 2019, sodium 139, potassium 3.3, chloride 96, carbon dioxide 34, BUN 82, creatinine 2.82, glucose 228, and calcium 8.7. On March 20, 2019, hemoglobin 11.5. ASSESSMENT AND PLAN: 1. Acute kidney injury-superimposed hemodynamically-mediated renal dysfunction. Stabilizing renal function. Adjustment of furosemide has been done. There is no indication for any dialytic intervention with this patient. 2. Shortness of breath, multifactorial etiology-underlying congestive heart failure as well as underlying lung cancer. Please note, the patient is on a diuretic regimen. Overall, agree with current management. Overall, prognosis remains guarded. Recheck basic metabolic and CBC in a.m. Job ID: [id number]
[2019-03-22] MEDS ORDERED: Amiodarone 200 MG TAB PO SCH (11:00)
--- NOTE | 2019-03-22 12:13 | PRG ---
DATE OF SERVICE: 03/22/2019 SUBJECTIVE: The patient is doing okay, had no acute complaints. OBJECTIVE: VITAL SIGNS: Temperature 97.9, pulse 79, blood pressure 118/65, O2 saturations 99%. HEENT: Unremarkable. NECK: No adenopathy or JVD. LUNGS: Clear. CARDIAC: S1 and S2. Regular. ABDOMEN: Soft. EXTREMITIES: No edema. LABORATORY DATA: Blood glucose is 228. Sodium 139, potassium 3.3, chloride 96, CO2 of 34, BUN 82, creatinine 2.8. ASSESSMENT: 1. Stable/improved hypoglycemia. 2. Cardiomyopathy. PLAN: From my standpoint, he can be taken off the D10, placed on lower dose D5. I will leave that to the hospitalist. Other than that, he looks stable for transfer to the medical floor. Job ID: [id number]
[2019-03-22] MEDS: HumaLOG 300 UNITS/3 ML VIAL SC PRN ×2 (12:30→21:26)
--- NOTE | 2019-03-22 14:44 | PDOC.HOSPP ---
- Subjective Encounter Date: 03/22/19 Encounter Time: 14:42 Subjective: Pt. reports his breathing is better. NO CP, SOB. No N/V/D/C. Reports having a BM today. No fever, chills. - Objective Vital Signs & Weight: Vital Signs (12 hours) Temp Pulse Resp Pulse Ox 03/22/19 11:56 91 27 H 94 L 03/22/19 11:11 97.9 F 03/22/19 08:30 81 03/22/19 08:24 81 22 H 03/22/19 08:00 94 L 03/22/19 07:19 97.6 F 03/22/19 05:00 20 94 L 03/22/19 04:01 16 92 L 03/22/19 03:38 97.3 F L 03/22/19 03:00 94 L Weight Admit Weight 158 lb 11.725 oz Weight 170 lb 2 oz Most Recent Monitor Data Heart Rate from ECG 81 NIBP 124/82 NIBP BP-Mean 96 Respiration from ECG 10 SpO2 89 I&O: 03/21/19 03/22/19 03/23/19 06:59 06:59 06:59 Intake Total 620 1073 Output Total 2400 450 Balance -1780 623 Result Diagrams: 03/20/19 03:46 03/22/19 03:46 Additional Labs: Accuchecks 03/22/19 03/22/19 03/22/19 12:16 08:31 03:33 POC Glucose 248 H 258 H 258 H 03/21/19 03/21/19 03/21/19 23:55 19:49 16:17 POC Glucose 327 H 346 H 140 H Hospitalist ROS - Medication Medications: Active Medications Generic Name Dose Route Start Last Admin Trade Name Freq PRN Reason Stop Dose Admin Aspirin 81 mg 03/17/19 09:00 03/22/19 08:30 Ecotrin PO 81 mg DAILY ZAINA Administration Atorvastatin Calcium 10 mg 03/16/19 21:00 03/21/19 21:25 Lipitor PO 10 mg HS ZAINA Administration Carvedilol 3.125 mg 03/16/19 09:00 03/22/19 08:30 Coreg PO 3.125 mg BID ZAINA Administration Dextrose/Water 25 gm 03/18/19 09:46 03/21/19 08:13 Dextrose 50% IVP 25 gm PRN PRN Administration HYPOGLYCEMIA PROTOCOL Enoxaparin Sodium 30 mg 03/17/19 09:00 03/22/19 08:30 Lovenox SC 30 mg 0900 ZAINA Administration Furosemide 40 mg 03/22/19 07:30 03/22/19 08:30 Lasix PO 40 mg DAILY-AC ZAINA Administration Glucagon 1 mg 03/18/19 09:46 03/19/19 04:09 Glucagon IM 1 mg PRN PRN Administration HYPOGLYCEMIA PROTOCOL Hydralazine HCl 10 mg 03/21/19 15:00 03/22/19 08:30 Apresoline PO 10 mg TID ZAINA Administration Cefepime HCl 2 gm/ Sodium 100 mls @ 200 mls/hr 03/16/19 16:00 03/21/19 15:20 Chloride IVPB 100 mls 1600 ZAINA Administration Levofloxacin 250 mg/ Device 50 mls @ 100 mls/hr 03/16/19 18:00 03/21/19 17:28 IVPB 50 mls 1800 ZAINA Administration Insulin Human Lispro 0 units 03/21/19 08:59 03/22/19 12:30 Humalog SC 3 unit .MILD SLIDING SCALE PRN Administration MILD SLIDING SCALE Protocol Isosorbide Dinitrate 10 mg 03/21/19 15:00 03/22/19 08:30 Isordil PO 10 mg TID ZAINA Administration Methylprednisolone Sodium Succinate 40 mg 03/19/19 18:00 03/22/19 12:28 Solu-Medrol IVP 40 mg Q6HR ZAINA Administration - Exam General Appearance: awake alert, ill appearing Neck: supple, symmetric, no thyromegaly Heart: RRR, no gallops, no rubs, normal peripheral pulses Heart - other findings: 2+ bilateral pitting pedal edema Respiratory: CTAB, no wheezes, no rales, normal chest expansion Gastrointestinal: soft, non-tender, non-distended, normal bowel sounds Gastrointestinal - other findings: [place] with clear urine Skin: normal turgor, no rashes Psychiatric: normal affect, normal behavior Hosp A/P (1) Pneumonia Code(s): J18.9 - PNEUMONIA, UNSPECIFIED ORGANISM Status: Acute Qualifiers: Pneumonia type: due to unspecified organism Laterality: right Lung location: lower lobe of lung Qualified Code(s): J18.9 - Pneumonia, unspecified organism Plan: CT abd/pelvis on admission with loculated effusion On iv abx continue the same Pulm. on board who cleared him for transfer out of IMCU Will place orders Will obtain CT chest w/o contrast to evaluate progression of loculated effusion Afebrile and leukocytosis is better. DC cefepime (2) Acute respiratory failure Code(s): J96.00 - ACUTE RESPIRATORY FAILURE, UNSP W HYPOXIA OR HYPERCAPNIA Status: Acute Qualifiers: Respiratory failure complication: hypoxia Qualified Code(s): J96.01 - Acute respiratory failure with hypoxia Plan: On oxygen Wean as tolerated Pulm. on board (3) Acute metabolic encephalopathy Code(s): G93.41 - METABOLIC ENCEPHALOPATHY Status: Resolved (4) Acute systolic (congestive) heart failure Code(s): I50.21 - ACUTE SYSTOLIC (CONGESTIVE) HEART FAILURE Status: Acute Plan: EF of 15-20% on ECHO with LVDD Severe MR Cardio on board Continue diuretic regimen Switched to PO diuretics today by cardiology Further mgmt. per cardio (5) Oropharyngeal dysphagia Code(s): R13.12 - DYSPHAGIA, OROPHARYNGEAL PHASE Status: Acute Plan: Seen by speech therapy Diet PO with increased risk of aspiration If unable to tolerate PO, will DW patient regarding feeding tube (6) CAD (coronary artery disease) Code(s): I25.10 - ATHSCL HEART DISEASE OF [place] CORONARY ARTERY W/O ANG PCTRS Status: Chronic Qualifiers: Coronary Disease-Associated Artery/Lesion type: [place] artery [place] vs. transplanted heart: [place] heart Associated angina: without angina Qualified Code(s): I25.10 - Atherosclerotic heart disease of [place] coronary artery without angina pectoris Plan: Cardio on board Complicated by CHF (7) DM type 2 (diabetes mellitus, type 2) Status: Chronic Qualifiers: Diabetes mellitus half-way insulin use: without watermelon harvesting supervisor use Diabetes mellitus complication status: with hyperglycemia Qualified Code(s): E11.65 - Type 2 diabetes mellitus with hyperglycemia Plan: DC D10 as patient with hyperglycemia SSI Diabetic diet (8) HTN (hypertension) Code(s): I10 - ESSENTIAL (PRIMARY) HYPERTENSION Status: Chronic Qualifiers: Hypertension type: essential hypertension Qualified Code(s): I10 - Essential (primary) hypertension Plan: Stable BP Continue current meds - Plan sunshine catheter
[2019-03-22 15:31] LABS: Hemoglobin A1c 7.1 % (4.0-6.0)
--- NOTE | 2019-03-22 15:53 | CT ---
CT Chest WO Con HISTORY: Evaluation for loculated right pleural effusion. COMPARISON: Chest x-ray of 03/18/2019. CT of abdomen and pelvis of 03/15/[address] of chest of 08/16. FINDINGS: The lack of IV contrast degrades detail. The necrotic appearing pleural-based mass with ass ociated pathologic posterior right rib fractures is again noted. The pleural-based mass is fairly similar in appearance to the previous CT examination. Surrounding this pleural-based mass and involvi ng a large portion of the right lower lobe are parenchymal lung changes probably represent infiltrate it is possible that this is postradiation in nature if the patient is had radiation. Clini dennise correlation would be recommended. There is no loculated effusions seen other than very minimal loculated fluid along the medial border of the right lung there is also some minimal slightly loculat ed pleural effusion on the left. Coronary calcifications are seen small nonspecific mediastinal nodes are present. Ascites is noted. Visualized portions of the kidneys appear unremarkable.. IMPRESSION: 1. The necrotic appearing right lower lobe lung mass which is pleural-based appears similar to the pr ior examination. Increasing surrounding parenchymal changes as compared to the prior CT study are noted this may represent an associated pneumonic process. It is possible that some of these changes a re post radiation if the patient has had radiation performed. Pathologic right rib fractures in this region are also again noted. 2. No evidence of any large loculated pleural effusion. 3. Mild ascites.
[2019-03-22] MEDS: Ipratropium Bromide 2.5 ml Neb NEB SCH ×2 (18:50→22:13)
[2019-03-22] MEDS: Amiodarone 200 MG TAB PO SCH (21:21)
[2019-03-22] MEDS: Atorvastatin Calcium 10 MG TAB PO SCH (21:21)
[2019-03-22] MEDS: Heparin 5,000 UNITS/ML VIAL SC SCH (21:24)
[2019-03-23] MEDS: HumaLOG 300 UNITS/3 ML VIAL SC PRN ×2 (00:15→06:40)
[2019-03-23] MEDS: Ipratropium Bromide 2.5 ml Neb NEB SCH ×6 (03:17→22:19)
[2019-03-23 03:57] LABS: ALT (SGPT) 61 U/L (8-55); AST (SGOT) 20 U/L (5-34); Albumin 3.1 g/dL (3.4-4.8); Alkaline Phosphatase 94 U/L (40-110); Anion Gap 18 mmol/L (10-20); BUN (Urea Nitrogen) 101 mg/dL (8.4-25.7); Bilirubin, Total 1.7 mg/dL (0.2-1.2); Calc. Creatinine Clearance 23 mL/min (70-130); Carbon Dioxide 31 mmol/L (23-31); Chloride 96 mmol/L (98-107); Estimated GFR-MDRD 19; Glucose 277 mg/dL (80-115); Potassium 3.4 mmol/L (3.5-5.1); Protein, Total 6.1 g/dL (5.8-8.1); Sodium 142 mmol/L (136-145)
[2019-03-23 04:30] LABS: #Lymphocytes 0.8 thou/uL (1.20-3.40); #Monocytes 1.4 thou/uL (0.11-0.59); #Neutrophils 16.3 thou/uL (1.40-6.50); %Basophils 0.1 % (0.0-1.0); %Lymphocytes 4.2 % (21.0-51.0); %Monocytes 7.6 % (0.0-10.0); %Neutrophils 88.2 % (42.0-75.0); Hemoglobin 12.3 g/dL (14.0-18.0); Mean Corpuscular HGB CONC 32.5 g/dL (32.0-36.0); Mean Corpuscular Hemoglobin 29.6 pg (27.0-31.0); Mean Corpuscular Volume 91.1 fL (78.0-98.0); Platelet Count 102 thou/uL (130-400); Platelet Morphology Comment Appears Decreased; RBC Distribution Width 14.8 % (11.5-14.5); Red Blood Cell (RBC) Count 4.14 mill/uL (4.70-6.10); White Blood Cell (WBC) Count 18.5 thou/uL (4.8-10.8)
[2019-03-23] MEDS: hydrALAZINE 25 MG TAB PO SCH ×3 (09:33→20:49)
[2019-03-23] MEDS: Aspirin 81 mg Enteric Coated Tablet PO SCH (09:33)
[2019-03-23] MEDS: Carvedilol 3.125 MG TAB PO SCH ×2 (09:33→20:49)
[2019-03-23] MEDS: Isosorbide Dinitrate 20 MG TAB PO SCH ×3 (09:33→20:50)
[2019-03-23] MEDS: Furosemide 40 MG TAB PO SCH (09:33)
[2019-03-23] MEDS: Amiodarone 200 MG TAB PO SCH ×2 (09:33→20:49)
[2019-03-23] MEDS: Potassium Chloride 20 MEQ TAB PO SCH (09:33)
[2019-03-23] MEDS: Heparin 5,000 UNITS/ML VIAL SC SCH (09:34)
[2019-03-23] MEDS: methylPREDNISolone Sod Succ 40 MG VIAL IVP SCH ×2 (09:47→20:52)
--- NOTE | 2019-03-23 10:48 | PDOC.HOSPP ---
- Subjective Encounter Date: 03/23/19 Encounter Time: 10:40 Subjective: Patient denies any CP, SOB. He had a CT chest yesterday. No N/V/C/D. - Objective Vital Signs & Weight: Vital Signs (12 hours) Temp Pulse Resp Pulse Ox 03/23/19 10:26 97.6 F 03/23/19 09:33 79 03/23/19 08:00 95 03/23/19 07:38 100 03/23/19 07:36 79 12 100 03/23/19 07:00 97.5 F L 03/23/19 03:46 97.6 F 03/23/19 03:17 70 16 96 03/22/19 23:52 97.9 F Weight Admit Weight 158 lb 11.725 oz Weight 159 lb 7 oz Most Recent Monitor Data Heart Rate from ECG 87 NIBP 121/81 NIBP BP-Mean 94 Respiration from ECG 13 SpO2 87 I&O: 03/22/19 03/23/19 03/24/19 06:59 06:59 06:59 Intake Total 1073 100 Output Total 450 650 Balance 623 -550 Result Diagrams: 03/23/19 03:17 03/23/19 03:17 Additional Labs: Accuchecks 03/23/19 03/23/19 03/23/19 08:02 04:00 00:14 POC Glucose 191 H 256 H 378 H 03/22/19 03/22/19 03/22/19 20:42 16:06 12:16 POC Glucose 354 H 235 H 248 H 03/16/19 03/16/19 02:22 02:19 POC Glucose Less than 35 L* Less than 35 L* Hospitalist ROS - Medication Medications: Active Medications Generic Name Dose Route Start Last Admin Trade Name Freq PRN Reason Stop Dose Admin Amiodarone HCl 400 mg 03/22/19 21:00 03/23/19 09:33 Cordarone PO 400 mg BID ZAINA Administration Aspirin 81 mg 03/17/19 09:00 03/23/19 09:33 Ecotrin PO 81 mg DAILY ZAINA Administration Atorvastatin Calcium 10 mg 03/16/19 21:00 03/22/19 21:21 Lipitor PO 10 mg HS ZAINA Administration Carvedilol 3.125 mg 03/16/19 09:00 03/23/19 09:33 Coreg PO 3.125 mg BID ZAINA Administration Dextrose/Water 25 gm 03/18/19 09:46 03/21/19 08:13 Dextrose 50% IVP 25 gm PRN PRN Administration HYPOGLYCEMIA PROTOCOL Furosemide 40 mg 03/22/19 07:30 03/23/19 09:33 Lasix PO 40 mg DAILY-AC ZAINA Administration Glucagon 1 mg 03/18/19 09:46 03/19/19 04:09 Glucagon IM 1 mg PRN PRN Administration HYPOGLYCEMIA PROTOCOL Heparin Sodium (Porcine) 5,000 units 03/22/19 21:00 03/23/19 09:34 Heparin SC 5,000 units BID ZAINA Administration Hydralazine HCl 10 mg 03/21/19 15:00 03/23/19 09:33 Apresoline PO 10 mg TID ZAINA Administration Levofloxacin 250 mg/ Device 50 mls @ 100 mls/hr 03/16/19 18:00 03/22/19 15:50 IVPB 50 mls 1800 ZAINA Administration Insulin Human Lispro 0 units 03/21/19 08:59 03/23/19 06:40 Humalog SC 4 unit .MILD SLIDING SCALE PRN Administration MILD SLIDING SCALE Protocol Ipratropium [place] 2.5 ml 03/22/19 18:30 03/23/19 07:36 Atrovent NEB 2.5 ml [id number] ZAINA Administration Isosorbide Dinitrate 10 mg 03/21/19 15:00 03/23/19 09:33 Isordil PO 10 mg TID ZAINA Administration Methylprednisolone Sodium Succinate 20 mg 03/22/19 21:00 03/23/19 09:47 Solu-Medrol IVP 20 mg BID ZAINA Administration Potassium Chloride 40 meq 03/23/19 08:00 03/23/19 09:33 K-Dur PO 40 meq QAM-WM ZAINA Administration - Exam General Appearance: NAD, awake alert ENT: normocephalic atraumatic, no oropharyngeal lesions Neck: supple, symmetric, no lymphadenopathy Heart: RRR, no rubs, normal peripheral pulses, murmur present (systolic mitral area) Respiratory: CTAB, no wheezes, no rales, normal chest expansion Gastrointestinal: soft, non-tender, non-distended, normal bowel sounds Gastrointestinal - other findings: Kim with clear urine Hosp A/P (1) Pneumonia Code(s): J18.9 - PNEUMONIA, UNSPECIFIED ORGANISM Status: Acute Qualifiers: Pneumonia type: due to unspecified organism Laterality: right Lung location: lower lobe of lung Qualified Code(s): J18.9 - Pneumonia, unspecified organism (2) Acute respiratory failure Code(s): J96.00 - ACUTE RESPIRATORY FAILURE, UNSP W HYPOXIA OR HYPERCAPNIA Status: Acute Qualifiers: Respiratory failure complication: hypoxia Qualified Code(s): J96.01 - Acute respiratory failure with hypoxia (3) Acute metabolic encephalopathy Code(s): G93.41 - METABOLIC ENCEPHALOPATHY Status: Resolved (4) Acute systolic (congestive) heart failure Code(s): I50.21 - ACUTE SYSTOLIC (CONGESTIVE) HEART FAILURE Status: Acute (5) Oropharyngeal dysphagia Code(s): R13.12 - DYSPHAGIA, OROPHARYNGEAL PHASE Status: Acute (6) CAD (coronary artery disease) Code(s): I25.10 - ATHSCL HEART DISEASE OF [place] CORONARY ARTERY W/O ANG PCTRS Status: Chronic Qualifiers: Coronary Disease-Associated Artery/Lesion type: [place] artery [place] vs. transplanted heart: [place] heart Associated angina: without angina Qualified Code(s): I25.10 - Atherosclerotic heart disease of [place] coronary artery without angina pectoris (7) DM type 2 (diabetes mellitus, type 2) Status: Chronic Qualifiers: Diabetes mellitus [facility] insulin use: without [facility] use Diabetes mellitus complication status: with hyperglycemia Qualified Code(s): E11.65 - Type 2 diabetes mellitus with hyperglycemia (8) HTN (hypertension) Code(s): I10 - ESSENTIAL (PRIMARY) HYPERTENSION Status: Chronic Qualifiers: Hypertension type: essential hypertension Qualified Code(s): I10 - Essential (primary) hypertension - Plan Hosp A/P (1) Pneumonia Code(s): J18.9 - PNEUMONIA, UNSPECIFIED ORGANISM Status: Acute Qualifiers: Pneumonia type: due to unspecified organism Laterality: right Lung location: lower lobe of lung Qualified Code(s): J18.9 - Pneumonia, unspecified organism Plan: CT chest yesterday with necrotizing right lower lobe mass that is pleurally based with infiltrate suggestive of pneumonia On iv abx continue the same Pulm. on board (2) Acute respiratory failure Code(s): J96.00 - ACUTE RESPIRATORY FAILURE, UNSP W HYPOXIA OR HYPERCAPNIA Status: Acute Qualifiers: Respiratory failure complication: hypoxia Qualified Code(s): J96.01 - Acute respiratory failure with hypoxia Plan: On oxygen Wean as tolerated Pulm. on board (3) Acute metabolic encephalopathy Code(s): G93.41 - METABOLIC ENCEPHALOPATHY Status: Resolved (4) Acute systolic (congestive) heart failure Code(s): I50.21 - ACUTE SYSTOLIC (CONGESTIVE) HEART FAILURE Status: Acute Plan: EF of 15-20% on ECHO with LVDD Severe MR Cardio on board Continue diuretic regimen with PO lasix Needs adequate afterload reduction given his MR (5) Oropharyngeal dysphagia Code(s): R13.12 - DYSPHAGIA, OROPHARYNGEAL PHASE Status: Acute Plan: Seen by speech therapy Diet PO with increased risk of aspiration If unable to tolerate PO, will DW patient regarding feeding tube (6) CAD (coronary artery disease) Code(s): I25.10 - ATHSCL HEART DISEASE OF [place] CORONARY ARTERY W/O ANG PCTRS Status: Chronic Qualifiers: Coronary Disease-Associated Artery/Lesion type: [place] artery [place] vs. transplanted heart: [place] heart Associated angina: without angina Qualified Code(s): I25.10 - Atherosclerotic heart disease of [place] coronary artery without angina pectoris Plan: Cardio on board Complicated by CHF Cardio recommended amio 400 daily for 30 days; then, 200 mg daily (7) DM type 2 (diabetes mellitus, type 2) Status: Chronic Qualifiers: Diabetes mellitus [facility] insulin use: without [facility] use Diabetes mellitus complication status: with hyperglycemia Qualified Code(s): E11.65 - Type 2 diabetes mellitus with hyperglycemia Plan: Continue SSI Diabetic diet (8) HTN (hypertension) Code(s): I10 - ESSENTIAL (PRIMARY) HYPERTENSION Status: Chronic Qualifiers: Hypertension type: essential hypertension Qualified Code(s): I10 - Essential (primary) hypertension Plan: Stable BP Continue current meds 9. Lung cancer - Guarded prognosis given his necrotizing RLL mass, CHF, severe MR. Likely hospice appropriate. Palliative care team on board.
--- NOTE | 2019-03-23 11:40 | PRG ---
DATE OF SERVICE: 03/23/2019 SERVICE: Renal Medicine. SUBJECTIVE: Mr. Tejeda is a 68-year-old white male, who is being followed up by the Renal Service for his acute kidney injury that was hemodynamically-mediated renal dysfunction. He did have a history of CHF. He is status post IV dobutamine. Currently, on a diuretic regimen. Creatinine is noted to be slightly higher today at 3.25. I was reviewing I and O's and he was making more than adequate urine output in the last few days, but this has tapered down. My suspicion is that the patient may have been simply pre-renal azotemia from the discontinuation of the IV dobutamine. No other complaints today. He does have underlying shortness of breath, but it is not any worse. OBJECTIVE: VITAL SIGNS: Blood pressure 121/84, heart rate 96, respiratory rate 20, temperature 97.6, and pulse ox 98%. GENERAL: Noted to be awake, sitting comfortable, not in overt distress. SKIN: Adequate turgor. HEENT: He has a pinkish conjunctivae. Anicteric sclerae. NECK: No neck mass. No carotid bruits. No JVD. CHEST: No deformities. LUNGS: Decreased breath sounds. HEART: Normal sinus rhythm. No murmur. No gallops. No rubs. ABDOMEN: Globular. Soft. Nontender. No masses. EXTREMITIES: Trace edema. MEDICATIONS: March 23, 2019, was reviewed. LABORATORY DATA: Laboratories of March 23, 2019; white count 18.5, hemoglobin 12.3. March 23, 2019; sodium 142, potassium 3.4, chloride 96, carbon dioxide 31, BUN 101, creatinine 3.27, glucose 277, albumin is 3.1, and calcium 9.0. ASSESSMENT/PLAN: 1. Acute kidney injury-fluctuating creatinine. I think that he has some degree of volume depletion. He has been diuresed in the last several days. My plan is to at least give an albumin infusion 25 g IV q.6. He is on a low-dose furosemide at 40 mg tablet daily. There is no indication for any dialytic intervention. Continue to optimize hemodynamics. 2. Congestive heart failure, clinically stable, status post IV diuretics. Currently on decreased dose of furosemide. He is also status post IV dobutamine infusion. There is no indication for any dialytic intervention, albumin infusion for the next 24 hours. Job ID: [id number] [facility]
[2019-03-23] MEDS: Albumin 25% 25 GM/100 ML BOT IVPB SCH ×3 (12:02→23:36)
--- NOTE | 2019-03-23 12:22 | PRG ---
DATE OF SERVICE: 03/23/2019 SUBJECTIVE: Mr. Tejeda' mental status is changed little over the last several days. He has no current complaints. OBJECTIVE: VITAL SIGNS: Blood pressure 120/84, pulse 89, and respirations 20. LUNGS: Minimal crackles bilaterally. HEART: Regular rate and rhythm. ABDOMEN: Soft, nontender, and nondistended. EXTREMITIES: No edema. PERTINENT LABORATORY DATA: Hemoglobin 12.3, white blood cell count 18.5, platelet count 102. Creatinine 3.27. IMPRESSION: 1. Mental status changes. 2. Pneumonia. 3. Lung cancer. 4. Acute on chronic renal insufficiency. 5. Coronary artery disease. 6. Status post bypass surgery. 7. Nonsustained ventricular tachycardia. RECOMMENDATIONS: Certainly difficult situation. I have not seen family over the last several days. I have been seeing Mr. Tejeda. I reached out to his to update her. Given his current clinical status, I do not feel he would benefit from a more aggressive approach. Please see above as his comorbidities may limit more aggressive treatment plan. Given his cardiomyopathy is a new finding, I could recommend a LifeVest for Mr. Tejeda. We would like to discuss this with his prior to ordering the LifeVest. This may be prohibitive for the patient and the patient may not be compliant. I am uncertain about his long-term prognosis, thereby an ICD may also not be recommended. Otherwise, from my standpoint, I have no further recommendations. He is currently on amiodarone therapy 400 mg p.o. b.i.d. and we will decrease to 400 mg once a day for 30 days and decrease to 200 mg once a day. The patient's prognosis appears guarded. Job ID: [id number]
--- NOTE | 2019-03-23 14:28 | CON ---
DATE OF CONSULTATION: 03/23/2019 This is Jackie Bee NP dictating a report for Felix Brownlee MD. REASON FOR CONSULTATION: ICD consideration. HISTORY OF PRESENT ILLNESS: Mr. 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 He has 40 pack-year history of smoking and after imaging earlier this month, his cancer was staged at stage III metastatic disease. The plan is to begin concurrent chemoradiation, but he came to the emergency room with altered mental status with mild leukocytosis and empyema found on CT. He was admitted for his mental status changes and possible sepsis, being treated with antibiotics. He had a 22-beat nonsustained VT run prompting Cardiology consultation. He has a history of coronary artery disease with coronary artery bypass grafting in 2005. He had a heart catheterization in [address] Barros for evaluation of the saphenous vein graft. He also reportedly underwent aortic valve replacement with a bioprosthetic valve in the past. An echo was performed revealing severely reduced ejection fraction of 15% to 20%. Given his history of coronary artery disease and his weak heart, Cardiology would like to do a left heart catheterization to evaluate his coronary arteries. However, his creatinine is elevated over 3 and for now they will refrain from administering any IV contrast to prevent further insult to kidneys. They have asked for EP consultation for consideration of ICD, given his severe cardiomyopathy. Mr. Tejeda is in tenuous condition. He is quite frail with his health status and does have Palliative Care involved. Oncology has been following the patient, but has not made any estimations on his prognosis, although he does have a fairly guarded status at this point. Mr. Tejeda does not currently have any cardiac concerns or complaints and is fairly alert currently. REVIEW OF SYSTEMS: A 12-point review of systems is conducted as best as possible and is negative except that listed above in HPI. PAST MEDICAL HISTORY: 1. 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 2. Coronary artery disease with prior bypass grafting. 3. Type-2 diabetes. 4. Anxiety. 5. Depression. 6. Chronic kidney disease. 7. Hypertension. 8. Hypercholesterolemia. ALLERGIES: NO KNOWN DRUG ALLERGIES. SOCIAL HISTORY: Negative for alcohol or illicit drug use. History of tobacco habituation, but not currently. ALLERGIES: NONE. HOME MEDICATIONS: 1. Pravastatin. 2. Lorazepam. 3. Carvedilol 3.125 mg daily. 4. Insulin. 5. Novolin N. 6. Furosemide. 7. Aspirin 81 mg daily. FAMILY HISTORY: Could not be obtained. The patient does not recall any significant coronary artery disease or sudden cardiac . PHYSICAL EXAMINATION: VITAL SIGNS: Temperature 97.6, pulse 96, respirations 20, oxygen 98% on room air, blood pressure is 118/73. GENERAL: The patient is alert. He is oriented to time, person, place, poorly to situation. He is sitting upright in bed. Breathing is somewhat labored. NECK: Supple without jugular venous distention. There are no lymphadenopathies. Carotids are without bruit. LUNGS: Clear to auscultation. Respirations are slightly rapid with slight crackles bilaterally. HEART: Rate is . PMI is nonpalpable. ABDOMEN: Soft, nontender without palpable masses. EXTREMITIES: They are warm and dry to touch without edema. DATABASE: EKG today shows sinus rhythm with occasional PVCs, they are monomorphic. These are based on telemetry tracings, no 12 leads have been obtained. There is a 22-beat run of nonsustained VT that occurred on 03/22. Echocardiogram on 03/16/2019, 15% to 20% with a restrictive filling pattern, mild LV dilation, mildly enlarged right ventricle, left atrium is moderately dilated, moderately enlarged right atrium, [id number]-ch-[id number] mitral regurgitation. IMPRESSION: 1. Severe cardiomyopathy with ejection fraction of 15% to 20%. 2. Extensive coronary artery disease with prior bypass grafting. 3. Uodqp-po-upndqrg kidney disease. 4. Stage III metastatic lung cancer. 5. Nonsustained ventricular tachycardia. PLAN AND RECOMMENDATIONS: Mr. Tejeda is a 68-year-old gentleman, who was recently diagnosed with stage III metastatic lung cancer. He is undergoing treatment for this. During this hospital stay, he was found to have a severely reduced ejection fraction of 15% to 20%. To the best of our understanding, this is a new finding for him. He also has a significant history of coronary artery disease with prior bypass grafting, though unfortunately right now is not a candidate to undergo even a diagnostic left heart catheterization, given his elevated creatinine of 3.25 today. He did have 22 beats of ventricular tachycardia. There have been no further events. At this point, given this is a new diagnosis of cardiomyopathy, we would opt for medical management by Cardiology. Beta-blockers for his nonsustained ventricular tachycardia as tolerated optimizing this therapy. He was on an extremely low dose of carvedilol as an outpatient prior. In addition, the LifeVest could be considered until a 3-month waiting period is complete; however, with his mental status changes, this would certainly be difficult for him to achieve. There is question that he would not be able to press the button and operate the LifeVest to prevent any inappropriate shocks. In light of his ongoing cancer, he is seeking treatment. We would need a discussion with Oncology to see if the patient is expected to live beyond a year before we could recommend an ICD. If he is expected to live beyond a year with good quality life expectancy and his ejection fracture remains severely reduced after 3 months medical management, we could consider ICD implant at that time, though his prognosis is quite guarded at this point. Hopefully, his kidney function will recover and afterwards he could undergo at least a diagnostic heart catheterization to see if his coronary artery disease is contributing to his heart failure and/or his ventricular arrhythmias. Thank you for allowing me to participate in the care of this patient. Job ID: [id number]
--- NOTE | 2019-03-23 18:29 | PDOC.MOPN ---
Interval History: Pt confused. Says his breathing has improved, cannot elaborate more than that - Vital Signs Vital Signs: Vital Signs (12 hours) Temp Pulse Pulse Pulse Resp BP BP 03/23/19 15:45 75 03/23/19 15:11 97.2 F L 03/23/19 14:28 75 20 03/23/19 11:10 96 20 03/23/19 10:26 97.6 F 03/23/19 10:00 106 H 89 118/73 121/84 03/23/19 09:33 79 03/23/19 08:00 03/23/19 07:38 03/23/19 07:36 79 12 03/23/19 07:00 97.5 F L Pulse Ox Pulse Ox Pulse Ox 03/23/19 15:45 03/23/19 15:11 03/23/19 14:28 97 03/23/19 11:10 98 03/23/19 10:26 03/23/19 10:00 93 L 95 03/23/19 09:33 03/23/19 08:00 95 03/23/19 07:38 100 03/23/19 07:36 100 03/23/19 07:00 Weight Admit Weight 158 lb 11.725 oz Weight 159 lb 7 oz Most Recent Monitor Data Heart Rate from ECG 86 NIBP 93/67 NIBP BP-Mean 75 Respiration from ECG 14 SpO2 91 - Physical Exam General: Alert, Cooperative HEENT: EOMI Cardiovascular: Regular rate Abdomen: Soft Extremities: Other (3+ edema in B/L LE) Skin: No significant lesion Neurological: Cranial nerves 3-12 NL Psych/Mental Status: Other (appears confused, not oriented) - Labs Result Diagrams: 03/23/19 03:17 03/23/19 03:17 Lab results: Laboratory Results - last 24 hr 03/23/19 16:13: POC Glucose 146 H 03/23/19 11:52: POC Glucose 224 H 03/23/19 08:02: POC Glucose 191 H 03/23/19 04:00: POC Glucose 256 H 03/23/19 03:17: WBC 18.5 H, RBC 4.14 L, Hgb 12.3 L, Hct 37.7 L, MCV 91.1, MCH 29.6, MCHC 32.5, RDW 14.8 H, Plt Count 102 L, MPV 10.0, Neutrophils % 88.2 H, Neutrophils % (Manual) Not Reportable, Lymphocytes % 4.2 L, Monocytes % 7.6, Eosinophils % 0.0, Basophils % 0.1, Neutrophils # 16.3 H, Lymphocytes # 0.8 L, Monocytes # 1.4 H, Eosinophils # 0.0, Basophils # 0.0, Plt Morphology Comment Appears Decreased L 03/23/19 03:17: Sodium 142, Potassium 3.4 L, Chloride 96 L, Carbon Dioxide 31, Anion Gap 18, BUN 101 H, Creatinine 3.27 H, Estimated GFR (MDRD) 19, Glucose 277 H, Calcium 9.0, Total Bilirubin 1.7 H, AST 20, ALT 61 H, Alkaline Phosphatase 94, Serum Total Protein 6.1, Albumin 3.1 L, Globulin 3.0, Albumin/ Globulin Ratio 1.0 L 03/23/19 00:14: POC Glucose 378 H 03/22/19 20:42: POC Glucose 354 H 03/16/19 02:22: POC Glucose Less than 35 L* 03/16/19 02:19: POC Glucose Less than 35 L* A/P - Problem (1) Acute renal failure Current Visit: Yes Status: Acute (2) Acute systolic (congestive) heart failure Current Visit: Yes Code(s): I50.21 - ACUTE SYSTOLIC (CONGESTIVE) HEART FAILURE Status: Acute (3) Empyema lung Current Visit: Yes Code(s): J86.9 - PYOTHORAX WITHOUT FISTULA Status: Acute (4) Lung cancer, lower lobe Current Visit: Yes Code(s): C34.30 - MALIGNANT NEOPLASM OF LOWER LOBE, UNSP BRONCHUS OR LUNG Status: Chronic Qualifiers: Laterality: right Qualified Code(s): C34.31 - Malignant neoplasm of lower lobe, right bronchus or lung - Plan Plan: Pt has Stage 3 lung cancer, which is potentially curable; however, he now has acute on chronic CHF exacerbation with EF 15-20% and severe JAZZY. He has not had any runs of VT today, still with multiple PVCs. He is not a candidate for an ICD at this time but may be in the future if he has a life expectancy of > 1 year. He may be a candidate for a life vest if his AMS resolves. He is a candidate for chemoXRT with curative intent if he recovers from this episode, although would need to be extremely cautious with chemotherapy dosing, and potentially XRT dosing, given heart disease. If he does recover and is able to be treated then his life expectancy from lung cancer is likely much greater than 1 year, although I do not know his cardiac prognosis at this time, although likely guarded. cont current mgmt as per cardiology and nephrology: beta-haley, diuretics, albumin will follow peripherally for improvement in kidney and cardiac status call w/questions
--- NOTE | 2019-03-23 18:30 | PRG ---
DATE OF SERVICE: 03/23/2019 SUBJECTIVE: Patel Tejeda is still encephalopathic. OBJECTIVE: VITAL SIGNS: He is afebrile. Heart rate is in the 70s, respiratory rate is 20, oximetry is 97% on room air. LUNGS: Remarkable for end-expiratory wheezes. HEART: Regular rhythm. ABDOMEN: Soft. IMPRESSION: 1. Non-small cell lung cancer. 2. Direct extension of his tumor into posterior right ribs. CT done yesterday shows no significant change. 3. Coronary calcifications. 4. Severe cardiomyopathy. 5. Persistent encephalopathy, which in theory could be paraneoplastic. PLAN: Given his multiple medical problems, I suspect his prognosis is quite poor. We will continue to see intermittently as we move forward. He really has not changed much over the last few days. Job ID: [id number]
[2019-03-23] MEDS: Atorvastatin Calcium 10 MG TAB PO SCH (20:49)
[2019-03-24] MEDS: HumaLOG 300 UNITS/3 ML VIAL SC PRN ×3 (00:46→17:01)
[2019-03-24] MEDS: Ipratropium Bromide 2.5 ml Neb NEB SCH ×6 (02:34→21:50)
[2019-03-24 04:26] LABS: Anion Gap 22 mmol/L (10-20); BUN (Urea Nitrogen) 113 mg/dL (8.4-25.7); Calc. Creatinine Clearance 21 mL/min (70-130); Calcium 9.2 mg/dL (7.8-10.44); Carbon Dioxide 29 mmol/L (23-31); Chloride 97 mmol/L (98-107); Estimated GFR-MDRD 18; Glucose 229 mg/dL (80-115); Potassium 3.5 mmol/L (3.5-5.1); Sodium 144 mmol/L (136-145)
[2019-03-24 04:52] LABS: Hypochromia SLIGHT = 6-15 cells (100X) (0-5/hpf); Lymphocytes 5 % (21-51); MDiff Complete? YES; Mean Corpuscular HGB CONC 31.9 g/dL (32.0-36.0); Mean Corpuscular Hemoglobin 29.2 pg (27.0-31.0); Mean Corpuscular Volume 91.5 fL (78.0-98.0); Mean Platelet Volume 11.3 fL (7.4-10.4); Neutrophil 95 % (42-75); Platelet Count 93 thou/uL (130-400); Platelet Morphology Comment Appears Decreased; RBC Distribution Width 14.9 % (11.5-14.5); White Blood Cell (WBC) Count 17.5 thou/uL (4.8-10.8)
[2019-03-24] MEDS: Albumin 25% 25 GM/100 ML BOT IVPB SCH (05:42)
[2019-03-24] MEDS: Isosorbide Dinitrate 20 MG TAB PO SCH ×3 (08:20→21:13)
[2019-03-24] MEDS: Aspirin 81 mg Enteric Coated Tablet PO SCH (08:21)
[2019-03-24] MEDS: Potassium Chloride 20 MEQ TAB PO SCH (08:21)
[2019-03-24] MEDS: Furosemide 40 MG TAB PO SCH (08:22)
[2019-03-24] MEDS: Carvedilol 3.125 MG TAB PO SCH ×2 (08:22→21:12)
[2019-03-24] MEDS: methylPREDNISolone Sod Succ 40 MG VIAL IVP SCH ×2 (08:22→21:14)
[2019-03-24] MEDS: Amiodarone 200 MG TAB PO SCH ×2 (08:22→21:12)
[2019-03-24] MEDS: hydrALAZINE 25 MG TAB PO SCH ×3 (08:25→21:12)
--- NOTE | 2019-03-24 09:49 | CON ---
DATE OF CONSULTATION: 03/24/2019 HISTORY OF PRESENT ILLNESS: Mr. Tejeda is difficult to communicate. He states he has no current complaints, but appears agitated. His states his learning coordinator, Dr. Toby Burgos. After asking Mr. Tejeda, he states he saw Dr. Burgos yesterday. There is a component of confusion. OBJECTIVE: VITAL SIGNS: Blood pressure 127/78, pulse 97, respirations 20. LUNGS: Minimal crackles bilaterally. HEART: Regular rate and rhythm. ABDOMEN: Soft, nontender, nondistended. EXTREMITIES: 1+ pitting edema on left versus right. PERTINENT LABORATORY DATA: Hemoglobin 12. Creatinine 3.47. IMPRESSION: 1. Acute systolic heart failure. 2. Coronary artery disease. 3. Status post bypass surgery. 4. Jhrvy-eg-hwegqfd kidney disease. 5. Mental status changes. 6. Stage III lung cancer. RECOMMENDATIONS: It is a certainly difficult case of Mr. Tejeda. I discussed the case in detail with his yesterday about how to proceed. I did not feel he was an appropriate candidate for an ICD at this point, although Dr. Lopez did state stage III lung cancer is curable, but is unsure on whether he is able to tolerate chemo from a CV status. At this point, based on this being a new finding, recommendation is a LifeVest for Mr. Tejeda. I discussed this with Mr. Tejeda. At this point, I am not sure he understands what the LifeVest is and the importance of compliance. His states she wanted everything done for her including LifeVest, but at this point, I am not sure that is reasonable. I would prefer having the available with the patient. I have seen him over the last week and have not seen his . Otherwise, from my standpoint, I recommend continued conservative therapy. Once he is close to discharge, potentially would then consider LifeVest. Job ID: [id number]
--- NOTE | 2019-03-24 10:18 | PRG ---
DATE OF SERVICE: 03/24/2019 SUBJECTIVE: Mr. Tejeda is a 68-year-old white male with known history of CHF, severe cardiomyopathy, lung cancer, and seen by the Renal Service for his acute kidney injury. Renal function in the last 2 days has been worsening. He is now off his IV dobutamine. Due to the worsening renal dysfunction, furosemide was placed on hold. He did receive albumin, but this has not improved his renal function. He has no new complaints today. OBJECTIVE: VITAL SIGNS: Blood pressure is 127/78, heart rate 97, temperature 96.6, and pulse oximetry 90% on room air. GENERAL: Awake, sitting, comfortable, not in distress. SKIN: Adequate turgor. HEENT: He has pinkish conjunctivae. Anicteric sclerae. No neck mass. No carotid bruits. No JVD. CHEST: No deformities. LUNGS: Decreased breath sounds. HEART: Normal sinus rhythm. No murmur. No gallops. No rubs. ABDOMEN: Globular, soft, nontender. No masses. EXTREMITIES: No edema. No deformities. MEDICATIONS: Medications of March 24, 2019, reviewed. LABORATORY DATA: Laboratories of March 24, 2019; white count 17.5, hemoglobin 12. Sodium 144, potassium 3.5, chloride 97, carbon dioxide 29, BUN 113, creatinine 3.47, glucose 229, calcium 9.2. ASSESSMENT AND PLAN: 1. Acute kidney injury, worsening renal dysfunction, status post albumin without any improvement. Furosemide will place on hold temporarily. 2. There is no indication for an emergent hemodialysis with this patient. Continue supportive care. Continue to optimize hemodynamics. I feel that the worsening renal dysfunction may be a reflection of his poor cardiac output. He is a very poor candidate for any dialytic intervention. 3. Congestive heart failure/cardiomyopathy, supportive care. The patient is a poor candidate for automatic implantable cardioverter-defibrillator placement. 4. Lung cancer. Supportive care. Oncology is following. 5. Continue supportive care. Job ID: [id number]
--- NOTE | 2019-03-24 14:42 | PDOC.HOSPP ---
- Subjective Encounter Date: 03/24/19 Encounter Time: 13:15 Subjective: He has on and off confusion per staff. Kim was removed last night and he has retention this AM. No fever, chills. Seen by oncology yesterday and has expected survival >1yr from cancer point of view with chemo. However, cardiac function limits prognosis. - Objective Vital Signs & Weight: Vital Signs (12 hours) Temp Pulse Pulse Pulse Resp BP BP 03/24/19 11:22 96.7 F L 03/24/19 10:24 92 16 03/24/19 09:47 89 95 121/73 03/24/19 08:25 97 127/78 03/24/19 08:00 03/24/19 07:18 96.6 F L 03/24/19 06:56 03/24/19 06:52 97 16 03/24/19 04:00 BP Pulse Ox 03/24/19 11:22 03/24/19 10:24 90 L 03/24/19 09:47 134/76 03/24/19 08:25 03/24/19 08:00 100 03/24/19 07:18 03/24/19 06:56 90 L 03/24/19 06:52 90 L 03/24/19 04:00 98 Weight Admit Weight 158 lb 11.725 oz Weight 158 lb 9 oz Most Recent Monitor Data Heart Rate from ECG 105 NIBP 119/82 NIBP BP-Mean 94 Respiration from ECG 23 SpO2 92 I&O: 03/23/19 03/24/19 03/25/19 06:59 06:59 06:59 Intake Total 100 400 Output Total 650 800 Balance -550 -400 Result Diagrams: 03/24/19 03:43 03/24/19 03:43 Additional Labs: Accuchecks 03/24/19 03/24/19 03/24/19 12:17 08:41 04:39 POC Glucose 195 H 195 H 246 H 03/24/19 03/23/19 03/23/19 00:41 21:42 16:13 POC Glucose 242 H 214 H 146 H Hospitalist ROS - Medication Medications: Active Medications Generic Name Dose Route Start Last Admin Trade Name Freq PRN Reason Stop Dose Admin Amiodarone HCl 400 mg 03/22/19 21:00 03/24/19 08:22 Cordarone PO 400 mg BID ZAINA Administration Aspirin 81 mg 03/17/19 09:00 03/24/19 08:21 Ecotrin PO 81 mg DAILY ZAINA Administration Atorvastatin Calcium 10 mg 03/16/19 21:00 03/23/19 20:49 Lipitor PO 10 mg HS ZAINA Administration Carvedilol 3.125 mg 03/16/19 09:00 03/24/19 08:22 Coreg PO 3.125 mg BID ZAINA Administration Dextrose/Water 25 gm 03/18/19 09:46 03/21/19 08:13 Dextrose 50% IVP 25 gm PRN PRN Administration HYPOGLYCEMIA PROTOCOL Glucagon 1 mg 03/18/19 09:46 03/19/19 04:09 Glucagon IM 1 mg PRN PRN Administration HYPOGLYCEMIA PROTOCOL Hydralazine HCl 10 mg 03/21/19 15:00 03/24/19 08:25 Apresoline PO 10 mg TID ZAINA Administration Levofloxacin 250 mg/ Device 50 mls @ 100 mls/hr 03/16/19 18:00 03/23/19 17:14 IVPB 50 mls 1800 ZAINA Administration Insulin Human Lispro 0 units 03/21/19 08:59 03/24/19 05:42 Humalog SC 3 unit .MILD SLIDING SCALE PRN Administration MILD SLIDING SCALE Protocol Ipratropium [place] 2.5 ml 03/22/19 18:30 03/24/19 10:24 Atrovent NEB 2.5 ml [id number] ZAINA Administration Isosorbide Dinitrate 10 mg 03/21/19 15:00 03/24/19 08:20 Isordil PO 10 mg TID ZAINA Administration Methylprednisolone Sodium Succinate 20 mg 03/22/19 21:00 03/24/19 08:22 Solu-Medrol IVP 20 mg BID ZAINA Administration Potassium Chloride 40 meq 03/23/19 08:00 03/24/19 08:21 K-Dur PO 40 meq QAM-WM ZAINA Administration - Exam General Appearance: awake alert, ill appearing Neck: supple, no thyromegaly, no lymphadenopathy Heart: RRR, no gallops, no rubs, normal peripheral pulses Respiratory: no wheezes, rales (RLL) Gastrointestinal: non-tender, non-distended, normal bowel sounds, no splenomegaly Hosp A/P (1) Pneumonia Code(s): J18.9 - PNEUMONIA, UNSPECIFIED ORGANISM Status: Acute Qualifiers: Pneumonia type: due to unspecified organism Laterality: right Lung location: lower lobe of lung Qualified Code(s): J18.9 - Pneumonia, unspecified organism (2) Acute respiratory failure Code(s): J96.00 - ACUTE RESPIRATORY FAILURE, UNSP W HYPOXIA OR HYPERCAPNIA Status: Acute Qualifiers: Respiratory failure complication: hypoxia Qualified Code(s): J96.01 - Acute respiratory failure with hypoxia (3) Acute metabolic encephalopathy Code(s): G93.41 - METABOLIC ENCEPHALOPATHY Status: Resolved (4) Acute systolic (congestive) heart failure Code(s): I50.21 - ACUTE SYSTOLIC (CONGESTIVE) HEART FAILURE Status: Acute (5) Oropharyngeal dysphagia Code(s): R13.12 - DYSPHAGIA, OROPHARYNGEAL PHASE Status: Acute (6) CAD (coronary artery disease) Code(s): I25.10 - ATHSCL HEART DISEASE OF [place] CORONARY ARTERY W/O ANG PCTRS Status: Chronic Qualifiers: Coronary Disease-Associated Artery/Lesion type: [place] artery [place] vs. transplanted heart: [place] heart Associated angina: without angina Qualified Code(s): I25.10 - Atherosclerotic heart disease of [place] coronary artery without angina pectoris (7) DM type 2 (diabetes mellitus, type 2) Status: Chronic Qualifiers: Diabetes mellitus penitentiary insulin use: without penitentiary use Diabetes mellitus complication status: with hyperglycemia Qualified Code(s): E11.65 - Type 2 diabetes mellitus with hyperglycemia (8) HTN (hypertension) Code(s): I10 - ESSENTIAL (PRIMARY) HYPERTENSION Status: Chronic Qualifiers: Hypertension type: essential hypertension Qualified Code(s): I10 - Essential (primary) hypertension - Plan Hosp A/P (1) Pneumonia Code(s): J18.9 - PNEUMONIA, UNSPECIFIED ORGANISM Status: Acute Qualifiers: Pneumonia type: due to unspecified organism Laterality: right Lung location: lower lobe of lung Qualified Code(s): J18.9 - Pneumonia, unspecified organism Plan: On iv abx continue the same Pulm. on board (2) Acute respiratory failure Code(s): J96.00 - ACUTE RESPIRATORY FAILURE, UNSP W HYPOXIA OR HYPERCAPNIA Status: Acute Qualifiers: Respiratory failure complication: hypoxia Qualified Code(s): J96.01 - Acute respiratory failure with hypoxia Plan: On oxygen Wean as tolerated Pulm. on board (3) Acute metabolic encephalopathy Code(s): G93.41 - METABOLIC ENCEPHALOPATHY (4) Acute systolic (congestive) heart failure Code(s): I50.21 - ACUTE SYSTOLIC (CONGESTIVE) HEART FAILURE Status: Acute Plan: EF of 15-20% on ECHO with LVDD Severe MR Cardio on board Seen by EPS yesterday Not a candidate for ICD now Probably a poor candidate for lifevest due to his encephalopathy Guarded prognosis Hospice appropriate Needs adequate afterload reduction given his MR (5) Oropharyngeal dysphagia Code(s): R13.12 - DYSPHAGIA, OROPHARYNGEAL PHASE Status: Acute Plan: Seen by speech therapy Diet PO with increased risk of aspiration (6) CAD (coronary artery disease) Code(s): I25.10 - ATHSCL HEART DISEASE OF [place] CORONARY ARTERY W/O ANG PCTRS Status: Chronic Qualifiers: Coronary Disease-Associated Artery/Lesion type: [place] artery [place] vs. transplanted heart: [place] heart Associated angina: without angina Qualified Code(s): I25.10 - Atherosclerotic heart disease of [place] coronary artery without angina pectoris Plan: Cardio on board Complicated by CHF Cardio recommended amio 400 daily for 30 days; then, 200 mg daily (7) DM type 2 (diabetes mellitus, type 2) Status: Chronic Qualifiers: Diabetes mellitus adjunct faculty for medical terminology insulin use: without adjunct faculty for medical terminology use Diabetes mellitus complication status: with hyperglycemia Qualified Code(s): E11.65 - Type 2 diabetes mellitus with hyperglycemia Plan: Continue SSI Diabetic diet (8) HTN (hypertension) Code(s): I10 - ESSENTIAL (PRIMARY) HYPERTENSION Status: Chronic Qualifiers: Hypertension type: essential hypertension Qualified Code(s): I10 - Essential (primary) hypertension Plan: Hold meds due to worsening renal function 9. Lung cancer - Seen by oncology yesterday With chemo, has good prognosis for lung cancer. However, his cardiac illness limits recovery 10. JAZZY on CKD Renal on board Worsening renal function DC lasix for now
--- NOTE | 2019-03-24 14:55 | PRG ---
DATE OF SERVICE: 03/24/2019 SUBJECTIVE: The patient is about the same, still encephalopathic. OBJECTIVE: VITAL SIGNS: Temperature 96.7, pulse 105, blood pressure 119/82. HEENT: Unremarkable. NECK: No adenopathy or JVD. CHEST: Clear. CARDIAC: S1 and S2, regular. LABORATORY DATA: White blood cell count 17.5, hematocrit 37, and platelet count 93. Sodium 144, potassium 3.5, BUN 113, creatinine 3.4, glucose 229. ASSESSMENT: 1. Cardiomyopathy. 2. Encephalopathy. 3. Non-small cell lung cancer. PLAN: Seems stable with his medical problems, placement pending. Pulmonary will sign off. Please recall if further assistance needed. Job ID: [id number]
[2019-03-24] MEDS: HYDROcodone/Acetaminophen 5/325 mg Tablet PO PRN ×2 (17:25→21:14)
[2019-03-24] MEDS: Atorvastatin Calcium 10 MG TAB PO SCH (21:12)
[2019-03-25] MEDS: Ipratropium Bromide 2.5 ml Neb NEB SCH ×6 (02:20→22:48)
[2019-03-25 05:13] LABS: Band 3 % (5-11); Elliptocytes SLIGHT = 2-5 cells (100X) (0-1/hpf); Hemoglobin 12.5 g/dL (14.0-18.0); Hypochromia SLIGHT = 6-15 cells (100X) (0-5/hpf); Lymphocytes 3 % (21-51); MDiff Complete? YES; Mean Corpuscular HGB CONC 31.6 g/dL (32.0-36.0); Mean Corpuscular Hemoglobin 28.8 pg (27.0-31.0); Mean Platelet Volume 11.8 fL (7.4-10.4); Monocytes 5 % (0-10); Neutrophil 89 % (42-75); Platelet Count 85 thou/uL (130-400); Platelet Morphology Comment Appears Decreased; RBC Distribution Width 15.3 % (11.5-14.5); Red Blood Cell (RBC) Count 4.36 mill/uL (4.70-6.10); Target Cells SLIGHT = 2-5 cells (100X) (0-1/hpf); White Blood Cell (WBC) Count 18.4 thou/uL (4.8-10.8)
[2019-03-25 05:26] LABS: ALT (SGPT) 50 U/L (8-55); AST (SGOT) 47 U/L (5-34); Albumin 3.5 g/dL (3.4-4.8); Alkaline Phosphatase 166 U/L (40-110); Anion Gap 21 mmol/L (10-20); Bilirubin, Total 3.4 mg/dL (0.2-1.2); Calc. Creatinine Clearance 18 mL/min (70-130); Calcium 9.1 mg/dL (7.8-10.44); Carbon Dioxide 29 mmol/L (23-31); Chloride 100 mmol/L (98-107); Estimated GFR-MDRD 15; Globulin 2.2 g/dL (2.4-3.5); Glucose 259 mg/dL (80-115); Potassium 4.7 mmol/L (3.5-5.1); Protein, Total 5.7 g/dL (5.8-8.1); Sodium 145 mmol/L (136-145)
[2019-03-25 05:37] LABS: BUN (Urea Nitrogen) 121 mg/dL (8.4-25.7)
[2019-03-25] MEDS: HumaLOG 300 UNITS/3 ML VIAL SC PRN ×3 (05:55→12:44)
[2019-03-25] MEDS: hydrALAZINE 25 MG TAB PO SCH ×3 (08:57→20:56)
[2019-03-25] MEDS: Aspirin 81 mg Enteric Coated Tablet PO SCH (08:57)
[2019-03-25] MEDS: Carvedilol 3.125 MG TAB PO SCH ×2 (08:59→20:56)
[2019-03-25] MEDS: Isosorbide Dinitrate 20 MG TAB PO SCH ×3 (08:59→20:58)
[2019-03-25] MEDS: methylPREDNISolone Sod Succ 40 MG VIAL IVP SCH ×2 (09:01→20:58)
[2019-03-25] MEDS: Potassium Chloride 20 MEQ TAB PO SCH (09:01)
[2019-03-25] MEDS: Amiodarone 200 MG TAB PO SCH ×2 (09:01→20:56)
--- NOTE | 2019-03-25 10:19 | PDOC.HOSPP ---
- Subjective Encounter Date: 03/25/19 Encounter Time: 10:04 Subjective: Patient confused and unable to provide accurate history or ROS. - Objective Vital Signs & Weight: Vital Signs (12 hours) Temp Pulse Resp BP Pulse Ox 03/25/19 08:57 77 126/70 03/25/19 08:02 13 03/25/19 07:46 100 03/25/19 07:38 100 03/25/19 07:25 75 20 03/25/19 07:23 97.2 F L 03/25/19 04:13 97.0 F L 100 03/25/19 02:20 76 16 03/25/19 00:00 100 03/24/19 23:39 97.4 F L Weight Admit Weight 158 lb 11.725 oz Weight 158 lb 1 oz Most Recent Monitor Data Heart Rate from ECG 80 NIBP 126/70 NIBP BP-Mean 88 Respiration from ECG 24 SpO2 92 I&O: 03/24/19 03/25/19 03/26/19 06:59 06:59 06:59 Intake Total 400 250 Output Total 800 450 Balance -400 -200 Result Diagrams: 03/25/19 04:03 03/25/19 04:03 Additional Labs: Accuchecks 03/25/19 03/25/19 03/24/19 04:10 00:13 20:24 POC Glucose 234 H 186 H 186 H 03/24/19 03/24/19 16:30 12:17 POC Glucose 236 H 195 H Hospitalist ROS - Review of Systems ROS unobtainable: due to mental status - Medication Medications: Active Medications Generic Name Dose Route Start Last Admin Trade Name Freq PRN Reason Stop Dose Admin Hydrocodone Bitart/Acetaminophen 1 tab 03/24/19 17:16 03/24/19 21:14 [place] 5/325 PO 1 tab Q4H PRN Administration Moderate to Severe Pain (6-10) Amiodarone HCl 400 mg 03/22/19 21:00 03/25/19 09:01 Cordarone PO 400 mg BID ZAINA Administration Aspirin 81 mg 03/17/19 09:00 03/25/19 08:57 Ecotrin PO 81 mg DAILY ZAINA Administration Atorvastatin Calcium 10 mg 03/16/19 21:00 03/24/19 21:12 Lipitor PO 10 mg HS ZAINA Administration Carvedilol 3.125 mg 03/16/19 09:00 03/25/19 08:59 Coreg PO 3.125 mg BID ZAINA Administration Dextrose/Water 25 gm 03/18/19 09:46 03/21/19 08:13 Dextrose 50% IVP 25 gm PRN PRN Administration HYPOGLYCEMIA PROTOCOL Glucagon 1 mg 03/18/19 09:46 03/19/19 04:09 Glucagon IM 1 mg PRN PRN Administration HYPOGLYCEMIA PROTOCOL Hydralazine HCl 10 mg 03/21/19 15:00 03/25/19 08:57 Apresoline PO 10 mg TID ZAINA Administration Levofloxacin 250 mg/ Device 50 mls @ 100 mls/hr 03/16/19 18:00 03/24/19 16:56 IVPB 50 mls 1800 ZAINA Administration Insulin Human Lispro 0 units 03/21/19 08:59 03/25/19 09:45 Humalog SC 5 unit .MILD SLIDING SCALE PRN Administration MILD SLIDING SCALE Protocol Ipratropium [place] 2.5 ml 03/22/19 18:30 03/25/19 07:25 Atrovent NEB 2.5 ml [id number] ZAINA Administration Isosorbide Dinitrate 10 mg 03/21/19 15:00 03/25/19 08:59 Isordil PO 10 mg TID ZAINA Administration Methylprednisolone Sodium Succinate 20 mg 03/22/19 21:00 03/25/19 09:01 Solu-Medrol IVP 20 mg BID ZAINA Administration Potassium Chloride 40 meq 03/23/19 08:00 03/25/19 09:01 K-Dur PO 40 meq QAM-WM ZAINA Administration - Exam General Appearance: awake alert, ill appearing Eye: PERRL, anicteric sclera Neck: supple, no thyromegaly, no lymphadenopathy Heart: RRR, no gallops, no rubs, normal peripheral pulses Respiratory: CTAB, no ronchi, rales (RLL) Gastrointestinal: soft, non-tender, non-distended Gastrointestinal - other findings: Kim in place with clear urine Hosp A/P (1) Pneumonia Code(s): J18.9 - PNEUMONIA, UNSPECIFIED ORGANISM Status: Acute Qualifiers: Pneumonia type: due to unspecified organism Laterality: right Lung location: lower lobe of lung Qualified Code(s): J18.9 - Pneumonia, unspecified organism (2) Acute respiratory failure Code(s): J96.00 - ACUTE RESPIRATORY FAILURE, UNSP W HYPOXIA OR HYPERCAPNIA Status: Acute Qualifiers: Respiratory failure complication: hypoxia Qualified Code(s): J96.01 - Acute respiratory failure with hypoxia (3) Acute metabolic encephalopathy Code(s): G93.41 - METABOLIC ENCEPHALOPATHY Status: Resolved (4) Acute systolic (congestive) heart failure Code(s): I50.21 - ACUTE SYSTOLIC (CONGESTIVE) HEART FAILURE Status: Acute (5) Oropharyngeal dysphagia Code(s): R13.12 - DYSPHAGIA, OROPHARYNGEAL PHASE Status: Acute (6) CAD (coronary artery disease) Code(s): I25.10 - ATHSCL HEART DISEASE OF [place] CORONARY ARTERY W/O ANG PCTRS Status: Chronic Qualifiers: Coronary Disease-Associated Artery/Lesion type: [place] artery [place] vs. transplanted heart: [place] heart Associated angina: without angina Qualified Code(s): I25.10 - Atherosclerotic heart disease of [place] coronary artery without angina pectoris (7) DM type 2 (diabetes mellitus, type 2) Status: Chronic Qualifiers: Diabetes mellitus medical terminologist insulin use: without medical terminologist use Diabetes mellitus complication status: with hyperglycemia Qualified Code(s): E11.65 - Type 2 diabetes mellitus with hyperglycemia (8) HTN (hypertension) Code(s): I10 - ESSENTIAL (PRIMARY) HYPERTENSION Status: Chronic Qualifiers: Hypertension type: essential hypertension Qualified Code(s): I10 - Essential (primary) hypertension - Plan Hosp A/P (1) Pneumonia Code(s): J18.9 - PNEUMONIA, UNSPECIFIED ORGANISM Status: Acute Qualifiers: Pneumonia type: due to unspecified organism Laterality: right Lung location: lower lobe of lung Qualified Code(s): J18.9 - Pneumonia, unspecified organism Plan: On iv abx continue the same Pulm. on board (2) Acute respiratory failure Code(s): J96.00 - ACUTE RESPIRATORY FAILURE, UNSP W HYPOXIA OR HYPERCAPNIA Status: Acute Qualifiers: Respiratory failure complication: hypoxia Qualified Code(s): J96.01 - Acute respiratory failure with hypoxia Plan: On oxygen Wean as tolerated Pulm. on board (3) Acute metabolic encephalopathy Code(s): G93.41 - METABOLIC ENCEPHALOPATHY (4) Acute systolic (congestive) heart failure Code(s): I50.21 - ACUTE SYSTOLIC (CONGESTIVE) HEART FAILURE Status: Acute Plan: EF of 15-20% on ECHO with LVDD Severe MR Cardio on board. Case DW Dr. Castro Not a candidate for ICD and he is a poor candidate for lifevest due to his encephalopathy Guarded prognosis Hospice appropriate as per cardiology Will attempt to discuss with about goals of care and possible transition to hospice care (5) Oropharyngeal dysphagia Code(s): R13.12 - DYSPHAGIA, OROPHARYNGEAL PHASE Status: Acute (6) CAD (coronary artery disease) Code(s): I25.10 - ATHSCL HEART DISEASE OF [place] CORONARY ARTERY W/O ANG PCTRS Status: Chronic Qualifiers: Coronary Disease-Associated Artery/Lesion type: [place] artery [place] vs. transplanted heart: [place] heart Associated angina: without angina Qualified Code(s): I25.10 - Atherosclerotic heart disease of [place] coronary artery without angina pectoris Plan: Cardio on board Complicated by CHF amio 400 daily for 30 days; then, 200 mg daily (7) DM type 2 (diabetes mellitus, type 2) Status: Chronic Qualifiers: Diabetes mellitus medical terminologist insulin use: without detention use Diabetes mellitus complication status: with hyperglycemia Qualified Code(s): E11.65 - Type 2 diabetes mellitus with hyperglycemia Plan: Continue SSI Diabetic diet (8) HTN (hypertension) Code(s): I10 - ESSENTIAL (PRIMARY) HYPERTENSION Status: Chronic Qualifiers: Hypertension type: essential hypertension Qualified Code(s): I10 - Essential (primary) hypertension Plan: Hold meds due to worsening renal function 9. Lung cancer - Seen by oncology CHF and cardiac status limits further therapy and guarded prognosis as per oncology 10. JAZZY on CKD Renal on board
--- NOTE | 2019-03-25 10:21 | PRG ---
DATE OF SERVICE: 03/25/2019 SUBJECTIVE: Mr. Tejeda moans and becomes upset when he is asked questions. He is unable to tell me where he is or what day it is. He settles down when he is reassured. OBJECTIVE: VITAL SIGNS: Blood pressure 126/70, pulse 70. LUNGS: Clear. CARDIAC: Normal S1, normal S2. ABDOMEN: Soft and nontender. The patient is having nonsustained ventricular tachycardia on the monitor. ASSESSMENT: 1. Stage III lung cancer. 2. Systolic heart failure. 3. Coronary artery disease. 4. Previous bypass surgery. 5. Not a candidate for a defibrillator implantation, also would not be able to do a LifeVest at this stage. The family is coming in for further discussion. I just do not think the patient will be able to cooperate or understand what the LifeVest is. The family is not here today. Job ID: [id number]
[2019-03-25] MEDS: HYDROcodone/Acetaminophen 5/325 mg Tablet PO PRN (12:43)
[2019-03-25] MEDS: Morphine 10 MG/0.5 ML ORAL SYRINGE SL PRN ×3 (14:15→20:53)
[2019-03-25 17:08] LABS: Heparin-Induced Ab (HITA) 0.227 OD (0.000-0.400)
[2019-03-25] MEDS: Atorvastatin Calcium 10 MG TAB PO SCH (20:56)
[2019-03-26] MEDS: Morphine 10 MG/0.5 ML ORAL SYRINGE SL PRN ×2 (00:28→09:37)
[2019-03-26] MEDS: Ipratropium Bromide 2.5 ml Neb NEB SCH ×6 (03:04→22:49)
[2019-03-26 04:14] LABS: ALT (SGPT) 49 U/L (8-55); AST (SGOT) 43 U/L (5-34); Albumin 3.3 g/dL (3.4-4.8); Alkaline Phosphatase 210 U/L (40-110); Anion Gap 23 mmol/L (10-20); Bilirubin, Total 3.7 mg/dL (0.2-1.2); Calc. Creatinine Clearance 16 mL/min (70-130); Carbon Dioxide 26 mmol/L (23-31); Chloride 104 mmol/L (98-107); Estimated GFR-MDRD 14; Globulin 2.3 g/dL (2.4-3.5); Glucose 361 mg/dL (80-115); Hemoglobin 12.4 g/dL (14.0-18.0); Hypochromia SLIGHT = 6-15 cells (100X) (0-5/hpf); Lymphocytes 1 % (21-51); MDiff Complete? YES; Mean Corpuscular HGB CONC 31.8 g/dL (32.0-36.0); Mean Corpuscular Hemoglobin 29.6 pg (27.0-31.0); Mean Platelet Volume 12.2 fL (7.4-10.4); Monocytes 1 % (0-10); Neutrophil 98 % (42-75); Platelet Count 85 thou/uL (130-400); Platelet Morphology Comment Appears Decreased; Potassium 4.7 mmol/L (3.5-5.1); Protein, Total 5.6 g/dL (5.8-8.1); RBC Distribution Width 14.9 % (11.5-14.5); Red Blood Cell (RBC) Count 4.19 mill/uL (4.70-6.10); Sodium 148 mmol/L (136-145); White Blood Cell (WBC) Count 22.8 thou/uL (4.8-10.8)
[2019-03-26 04:25] LABS: BUN (Urea Nitrogen) 136 mg/dL (8.4-25.7)
[2019-03-26] MEDS: HumaLOG 300 UNITS/3 ML VIAL SC PRN ×2 (06:02→12:13)
--- NOTE | 2019-03-26 09:00 | PDOC.HOSPP ---
- Subjective Encounter Date: 03/26/19 Encounter Time: 08:50 Subjective: Patient unable to provide accurate history or ROS due to his mental status and delirium. and daughter at bedside. - Objective Vital Signs & Weight: Vital Signs (12 hours) Temp Pulse Resp Pulse Ox 03/26/19 07:34 67 17 03/26/19 07:31 97.7 F 03/26/19 03:44 97.4 F L 03/26/19 03:04 68 16 03/25/19 23:45 97.2 F L 97 03/25/19 22:48 68 16 03/25/19 22:11 96.4 F L Weight Admit Weight 158 lb 11.725 oz Weight 157 lb 4.8 oz Most Recent Monitor Data Heart Rate from ECG 66 NIBP 111/59 NIBP BP-Mean 76 Respiration from ECG 17 SpO2 92 I&O: 03/25/19 03/26/19 03/27/19 06:59 06:59 06:59 Intake Total 250 470 Output Total 450 800 Balance -200 -330 Result Diagrams: 03/26/19 03:31 03/26/19 03:31 Additional Labs: Accuchecks 03/26/19 03/25/19 03/25/19 06:00 20:24 16:02 POC Glucose 438 H 211 H 196 H 03/25/19 12:09 POC Glucose 275 H Hospitalist ROS - Medication Medications: Active Medications Generic Name Dose Route Start Last Admin Trade Name Freq PRN Reason Stop Dose Admin Amiodarone HCl 400 mg 03/22/19 21:00 03/25/19 20:56 Cordarone PO 400 mg BID ZAINA Administration Aspirin 81 mg 03/17/19 09:00 03/25/19 08:57 Ecotrin PO 81 mg DAILY ZAINA Administration Atorvastatin Calcium 10 mg 03/16/19 21:00 03/25/19 20:56 Lipitor PO 10 mg HS ZAINA Administration Carvedilol 3.125 mg 03/16/19 09:00 03/25/19 20:56 Coreg PO Not Given BID ZAINA Dextrose/Water 25 gm 03/18/19 09:46 03/21/19 08:13 Dextrose 50% IVP 25 gm PRN PRN Administration HYPOGLYCEMIA PROTOCOL Glucagon 1 mg 03/18/19 09:46 03/19/19 04:09 Glucagon IM 1 mg PRN PRN Administration HYPOGLYCEMIA PROTOCOL Hydralazine HCl 10 mg 03/21/19 15:00 03/25/19 20:56 Apresoline PO Not Given TID [facility] Levofloxacin 250 mg/ Device 50 mls @ 100 mls/hr 03/16/19 18:00 03/25/19 17:01 IVPB 50 mls 1800 ZAINA Administration Insulin Human Lispro 0 units 03/21/19 08:59 03/26/19 06:02 Humalog SC 6 unit .MILD SLIDING SCALE PRN Administration MILD SLIDING SCALE Protocol Ipratropium [place] 2.5 ml 03/22/19 18:30 03/26/19 07:34 Atrovent NEB 2.5 ml [id number] ZAINA Administration Isosorbide Dinitrate 10 mg 03/21/19 15:00 03/25/19 20:58 Isordil PO Not Given TID [facility] Methylprednisolone Sodium Succinate 20 mg 03/22/19 21:00 03/25/19 20:58 Solu-Medrol IVP 20 mg BID ZAINA Administration Morphine Sulfate 10 mg 03/25/19 14:04 03/26/19 00:28 Roxanol Solution SL 10 mg Q2H PRN Administration Moderate to Severe Pain (6-10) Potassium Chloride 40 meq 03/23/19 08:00 03/25/19 09:01 K-Dur PO 40 meq QAM-WM ZAINA Administration - Exam General Appearance: ill appearing General - other findings: confused and delirious; moaning in the bed ENT: normocephalic atraumatic, moist mucosa Neck: supple, symmetric, no thyromegaly Heart: no gallops, no rubs, normal peripheral pulses Respiratory: no tachypnea, rales (RLL) Gastrointestinal: soft, non-tender, normal bowel sounds Hosp A/P (1) Pneumonia Code(s): J18.9 - PNEUMONIA, UNSPECIFIED ORGANISM Status: Acute Qualifiers: Pneumonia type: due to unspecified organism Laterality: right Lung location: lower lobe of lung Qualified Code(s): J18.9 - Pneumonia, unspecified organism (2) Acute respiratory failure Code(s): J96.00 - ACUTE RESPIRATORY FAILURE, UNSP W HYPOXIA OR HYPERCAPNIA Status: Acute Qualifiers: Respiratory failure complication: hypoxia Qualified Code(s): J96.01 - Acute respiratory failure with hypoxia (3) Acute metabolic encephalopathy Code(s): G93.41 - METABOLIC ENCEPHALOPATHY Status: Resolved (4) Acute systolic (congestive) heart failure Code(s): I50.21 - ACUTE SYSTOLIC (CONGESTIVE) HEART FAILURE Status: Acute (5) Oropharyngeal dysphagia Code(s): R13.12 - DYSPHAGIA, OROPHARYNGEAL PHASE Status: Acute (6) CAD (coronary artery disease) Code(s): I25.10 - ATHSCL HEART DISEASE OF [place] CORONARY ARTERY W/O ANG PCTRS Status: Chronic Qualifiers: Coronary Disease-Associated Artery/Lesion type: [place] artery [place] vs. transplanted heart: [place] heart Associated angina: without angina Qualified Code(s): I25.10 - Atherosclerotic heart disease of [place] coronary artery without angina pectoris (7) DM type 2 (diabetes mellitus, type 2) Status: Chronic Qualifiers: Diabetes mellitus watermelon inspector insulin use: without mcc use Diabetes mellitus complication status: with hyperglycemia Qualified Code(s): E11.65 - Type 2 diabetes mellitus with hyperglycemia (8) HTN (hypertension) Code(s): I10 - ESSENTIAL (PRIMARY) HYPERTENSION Status: Chronic Qualifiers: Hypertension type: essential hypertension Qualified Code(s): I10 - Essential (primary) hypertension - Plan Hosp A/P (1) Pneumonia Code(s): J18.9 - PNEUMONIA, UNSPECIFIED ORGANISM Status: Acute Qualifiers: Pneumonia type: due to unspecified organism Laterality: right Lung location: lower lobe of lung Qualified Code(s): J18.9 - Pneumonia, unspecified organism Plan: On iv abx (2) Acute respiratory failure Code(s): J96.00 - ACUTE RESPIRATORY FAILURE, UNSP W HYPOXIA OR HYPERCAPNIA Status: Acute Qualifiers: Respiratory failure complication: hypoxia Qualified Code(s): J96.01 - Acute respiratory failure with hypoxia Plan: On oxygen Wean as tolerated (3) Acute metabolic encephalopathy Code(s): G93.41 - METABOLIC ENCEPHALOPATHY (4) Acute systolic (congestive) heart failure Code(s): I50.21 - ACUTE SYSTOLIC (CONGESTIVE) HEART FAILURE Status: Acute Plan: EF of 15-20% on ECHO with LVDD Severe MR Cardio on board. Case DW Dr. Castro Hospice appropriate as per Dr. Castro (5) Oropharyngeal dysphagia Code(s): R13.12 - DYSPHAGIA, OROPHARYNGEAL PHASE Status: Acute (6) CAD (coronary artery disease) Code(s): I25.10 - ATHSCL HEART DISEASE OF [place] CORONARY ARTERY W/O ANG PCTRS Status: Chronic Qualifiers: Coronary Disease-Associated Artery/Lesion type: [place] artery [place] vs. transplanted heart: [place] heart Associated angina: without angina Qualified Code(s): I25.10 - Atherosclerotic heart disease of [place] coronary artery without angina pectoris Plan: Cardio on board Complicated by CHF on amio (7) DM type 2 (diabetes mellitus, type 2) Status: Chronic Qualifiers: Diabetes mellitus watermelon inspector insulin use: without mcc use Diabetes mellitus complication status: with hyperglycemia Qualified Code(s): E11.65 - Type 2 diabetes mellitus with hyperglycemia Plan: Continue SSI Diabetic diet (8) HTN (hypertension) Code(s): I10 - ESSENTIAL (PRIMARY) HYPERTENSION Status: Chronic Qualifiers: Hypertension type: essential hypertension Qualified Code(s): I10 - Essential (primary) hypertension Plan: Hold meds due to worsening renal function 9. Lung cancer - Seen by oncology CHF and cardiac status limits further therapy and guarded prognosis as per oncology 10. JAZZY on CKD Renal on board
--- NOTE | 2019-03-26 09:04 | PDOC.FMACP ---
Advance Care Planning - Problem (1) Pneumonia Status: Acute Code(s): J18.9 - PNEUMONIA, UNSPECIFIED ORGANISM Qualifiers: Pneumonia type: due to unspecified organism Laterality: right Lung location: lower lobe of lung Qualified Code(s): J18.9 - Pneumonia, unspecified organism (2) Acute respiratory failure Status: Acute Code(s): J96.00 - ACUTE RESPIRATORY FAILURE, UNSP W HYPOXIA OR HYPERCAPNIA Qualifiers: Respiratory failure complication: hypoxia Qualified Code(s): J96.01 - Acute respiratory failure with hypoxia (3) Acute metabolic encephalopathy Status: Resolved Code(s): G93.41 - METABOLIC ENCEPHALOPATHY (4) Acute systolic (congestive) heart failure Status: Acute Code(s): I50.21 - ACUTE SYSTOLIC (CONGESTIVE) HEART FAILURE (5) Oropharyngeal dysphagia Status: Acute Code(s): R13.12 - DYSPHAGIA, OROPHARYNGEAL PHASE (6) CAD (coronary artery disease) Status: Chronic Code(s): I25.10 - ATHSCL HEART DISEASE OF [place] CORONARY ARTERY W/O ANG PCTRS Qualifiers: Coronary Disease-Associated Artery/Lesion type: [place] artery [place] vs. transplanted heart: [place] heart Associated angina: without angina Qualified Code(s): I25.10 - Atherosclerotic heart disease of [place] coronary artery without angina pectoris (7) DM type 2 (diabetes mellitus, type 2) Status: Chronic Qualifiers: Diabetes mellitus assisted insulin use: without terminal carman use Diabetes mellitus complication status: with hyperglycemia Qualified Code(s): E11.65 - Type 2 diabetes mellitus with hyperglycemia (8) HTN (hypertension) Status: Chronic Code(s): I10 - ESSENTIAL (PRIMARY) HYPERTENSION Qualifiers: Hypertension type: essential hypertension Qualified Code(s): I10 - Essential (primary) hypertension - Note Participants: family Summary: Advanced Care Planning was discussed. The diagnosis, prognosis and goals of care were discussed. Appropriate forms and documentation to accomplish the goals of care were discussed. All questions were answered. DW and daughter at bedside at length regarding the patient's current condition Poor prognosis and appropriateness for hospice discussed given his Stage III lung cancer, end stage CHF and worsening renal function Patient not a good candidate for lifevest or AICD per cardiology Family states patient would not have wanted CPR in the case of cardiac arrest Family proceeded to make the patient DNR/DNI in accordance with patient's beliefs. Goals of care were discussed given guarded prognosis and futility of aggressive care Hospice was offered given his advanced illnesses Family agreeable to hospice and requested hospice at home stating that they can provide care to the patient DNAR orders entered Case management consult for inpatient hospice with transition to home hospice entered Patient will likely need hospital bed at home for comfort ABX discontinued Will also DC labs, fingersticks and SSI to avoid discomfort DC tele Maintain Kim for comfort Roxanol, ativan PRN Scopolamine patch Continue oxygen Time Spent (mins): 25
[2019-03-26] MEDS ORDERED: Scopolamine 1.5 mg/72 hour Patch TD SCH (09:15)
[2019-03-26] MEDS: Isosorbide Dinitrate 20 MG TAB PO SCH (09:43)
[2019-03-26] MEDS: Potassium Chloride 20 MEQ TAB PO SCH (09:43)
[2019-03-26] MEDS: hydrALAZINE 25 MG TAB PO SCH (09:43)
[2019-03-26] MEDS: methylPREDNISolone Sod Succ 40 MG VIAL IVP SCH ×2 (09:44→20:24)
[2019-03-26] MEDS: Carvedilol 3.125 MG TAB PO SCH ×2 (09:44→21:22)
[2019-03-26] MEDS: Amiodarone 200 MG TAB PO SCH ×2 (09:44→21:21)
[2019-03-26] MEDS: Aspirin 81 mg Enteric Coated Tablet PO SCH (09:44)
[2019-03-26] MEDS: Lorazepam 2 MG/ML VIAL SLOW IVP PRN ×2 (09:49→16:50)
[2019-03-26] MEDS: Atorvastatin Calcium 10 MG TAB PO SCH (21:22)
[2019-03-27] MEDS: Ipratropium Bromide 2.5 ml Neb NEB SCH ×6 (03:03→23:05)
[2019-03-27 05:57] VITALS: BMI 20.7
[2019-03-27] MEDS: methylPREDNISolone Sod Succ 40 MG VIAL IVP SCH ×2 (08:32→20:34)
[2019-03-27] MEDS: Amiodarone 200 MG TAB PO SCH ×2 (08:34→21:59)
[2019-03-27] MEDS: Aspirin 81 mg Enteric Coated Tablet PO SCH (08:35)
[2019-03-27] MEDS: Carvedilol 3.125 MG TAB PO SCH ×2 (08:35→22:00)
--- NOTE | 2019-03-27 09:43 | PDOC.HOSPP ---
- Subjective Encounter Date: 03/27/19 Encounter Time: 09:41 Subjective: no appropriate responce - Objective Vital Signs & Weight: Vital Signs (12 hours) Temp Pulse Resp BP Pulse Ox 03/27/19 08:28 96.0 F L 64 20 121/74 100 03/27/19 07:27 96 03/27/19 07:25 64 16 96 03/27/19 06:04 98.6 F 61 20 127/66 100 03/27/19 04:00 98.6 F 61 20 100 03/27/19 03:03 61 20 100 03/26/19 23:41 63 16 103/68 93 L 03/26/19 22:49 62 18 100 Weight Admit Weight 158 lb 11.725 oz Weight 157 lb Most Recent Monitor Data Heart Rate from ECG 79 NIBP 106/69 NIBP BP-Mean 81 Respiration from ECG 17 SpO2 100 I&O: 03/26/19 03/27/19 03/28/19 06:59 06:59 06:59 Intake Total 470 Output Total 800 1050 Balance -330 -1050 Result Diagrams: 03/26/19 03:31 03/26/19 03:31 Additional Labs: Accuchecks 03/26/19 03/25/19 10:47 09:40 POC Glucose 299 H 303 H Hospitalist ROS - Medication Medications: Active Medications Generic Name Dose Route Start Last Admin Trade Name Freq PRN Reason Stop Dose Admin Amiodarone HCl 400 mg 03/22/19 21:00 03/27/19 08:34 Cordarone PO Not Given BID [facility] Aspirin 81 mg 03/17/19 09:00 03/27/19 08:35 Ecotrin PO Not Given DAILY ZAINA Atorvastatin Calcium 10 mg 03/16/19 21:00 03/26/19 21:22 Lipitor PO Not Given HS ZAINA Carvedilol 3.125 mg 03/16/19 09:00 03/27/19 08:35 Coreg PO Not Given BID ZAINA Dextrose/Water 25 gm 03/18/19 09:46 03/21/19 08:13 Dextrose 50% IVP 25 gm PRN PRN Administration HYPOGLYCEMIA PROTOCOL Ipratropium [place] 2.5 ml 03/22/19 18:30 03/27/19 07:25 Atrovent NEB 2.5 ml [id number] ZAINA Administration Lorazepam 1 mg 03/26/19 09:03 03/26/19 16:50 Ativan SLOW IVP 1 mg Q4H PRN Administration Anxiety/Agitation Methylprednisolone Sodium Succinate 20 mg 03/22/19 21:00 03/27/19 08:32 Solu-Medrol IVP 20 mg BID ZAINA Administration Morphine Sulfate 10 mg 03/25/19 14:04 03/26/19 09:37 Roxanol Solution SL 10 mg Q2H PRN Administration Moderate to Severe Pain (6-10) Scopolamine 1.5 mg 03/26/19 09:15 03/26/19 09:36 Transderm Scop TD 1.5 mg Q3D ZAINA Administration - Exam Neck: no JVD Heart: RRR, II/IV Respiratory: CTAB Gastrointestinal: soft, normal bowel sounds Extremities: no edema Hosp A/P (1) Lung cancer, lower lobe Code(s): C34.30 - MALIGNANT NEOPLASM OF LOWER LOBE, UNSP BRONCHUS OR LUNG Status: Chronic Qualifiers: Laterality: right Qualified Code(s): C34.31 - Malignant neoplasm of lower lobe, right bronchus or lung (2) Encephalopathy acute Code(s): G93.40 - ENCEPHALOPATHY, UNSPECIFIED Status: Deleted (3) Acute renal failure Status: Acute (4) DM type 2 (diabetes mellitus, type 2) Status: Chronic Qualifiers: Diabetes mellitus keno terminal operator insulin use: without fci use Diabetes mellitus complication status: with kidney complications Diabetes mellitus complication detail: with chronic kidney disease Chronic kidney disease stage : stage 4 (severe) Qualified Code(s): E11.22 - Type 2 diabetes mellitus with diabetic chronic kidney disease; N18.4 - Chronic kidney disease, stage 4 (severe ) (5) CAD (coronary artery disease) Code(s): I25.10 - ATHSCL HEART DISEASE OF [place] CORONARY ARTERY W/O ANG PCTRS Status: Chronic Qualifiers: Coronary Disease-Associated Artery/Lesion type: [place] artery [place] vs. transplanted heart: [place] heart Associated angina: without angina Qualified Code(s): I25.10 - Atherosclerotic heart disease of [place] coronary artery without angina pectoris (6) HTN (hypertension) Code(s): I10 - ESSENTIAL (PRIMARY) HYPERTENSION Status: Chronic Qualifiers: Hypertension type: essential hypertension Qualified Code(s): I10 - Essential (primary) hypertension (7) Acute systolic (congestive) heart failure Code(s): I50.21 - ACUTE SYSTOLIC (CONGESTIVE) HEART FAILURE Status: Acute - Plan Patient apparently at baseline mult severe co-morbibities encephalopathy ,DM with CKD$, 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
[2019-03-27] MEDS: Atorvastatin Calcium 10 MG TAB PO SCH (22:00)
[2019-03-28] MEDS: Ipratropium Bromide 2.5 ml Neb NEB SCH ×4 (02:39→14:32)
[2019-03-28 08:04] VITALS: BP 74/44; TEMP 97.4
[2019-03-28] MEDS: methylPREDNISolone Sod Succ 40 MG VIAL IVP SCH (08:15)
[2019-03-28] MEDS ORDERED: Sodium Chloride 0.9% 500 ML IVPB SCH (08:45)
--- NOTE | 2019-03-28 10:09 | PDOC.HOSPP ---
- Subjective Encounter Date: 03/28/19 Encounter Time: 10:01 Subjective: unresponsive, agonal respiratios - Objective Vital Signs & Weight: Vital Signs (12 hours) Temp Pulse Resp BP Pulse Ox 03/28/19 08:00 100 03/28/19 07:57 97.4 F L 91 24 H 74/44 L 100 03/28/19 06:39 72 20 03/28/19 03:00 71 20 95 03/28/19 02:39 20 88 L 03/27/19 23:05 71 24 H 92 L Weight Admit Weight 158 lb 11.725 oz Weight 163 lb 5 oz Most Recent Monitor Data Heart Rate from ECG 79 NIBP 106/69 NIBP BP-Mean 81 Respiration from ECG 17 SpO2 100 I&O: 03/27/19 03/28/19 03/29/19 06:59 06:59 06:59 Intake Total 30 Output Total 1050 1100 Balance -1050 -1070 Result Diagrams: 03/26/19 03:31 03/26/19 03:31 Hospitalist ROS - Medication Medications: Active Medications Generic Name Dose Route Start Last Admin Trade Name Freq PRN Reason Stop Dose Admin Amiodarone HCl 200 mg 03/27/19 21:00 03/27/19 21:59 Cordarone PO Not Given BID ZAINA Aspirin 81 mg 03/17/19 09:00 03/27/19 08:35 Ecotrin PO Not Given DAILY ZAINA Atorvastatin Calcium 10 mg 03/16/19 21:00 03/27/19 22:00 Lipitor PO Not Given HS ZAINA Carvedilol 3.125 mg 03/16/19 09:00 03/27/19 22:00 Coreg PO Not Given BID ZAINA Dextrose/Water 25 gm 03/18/19 09:46 03/21/19 08:13 Dextrose 50% IVP 25 gm PRN PRN Administration HYPOGLYCEMIA PROTOCOL Sodium Chloride 500 mls @ 0 mls/hr 03/28/19 08:45 03/28/19 08:51 Normal Saline 0.9% IVPB 03/28/19 10:45 500 mls NOW ZAINA Administration As Directed Ipratropium [place] 2.5 ml 03/22/19 18:30 03/28/19 06:39 Atrovent NEB 2.5 ml [id number] ZAINA Administration Lorazepam 1 mg 03/26/19 09:03 03/26/19 16:50 Ativan SLOW IVP 1 mg Q4H PRN Administration Anxiety/Agitation Methylprednisolone Sodium Succinate 20 mg 03/22/19 21:00 03/28/19 08:15 Solu-Medrol IVP 20 mg BID ZAINA Administration Morphine Sulfate 10 mg 03/25/19 14:04 03/26/19 09:37 Roxanol Solution SL 10 mg Q2H PRN Administration Moderate to Severe Pain (6-10) Scopolamine 1.5 mg 03/26/19 09:15 03/26/19 09:36 Transderm Scop TD 1.5 mg Q3D ZAINA Administration - Exam Neck: no JVD Heart: RRR Respiratory - other findings: decreased BS, coarse Gastrointestinal: soft, normal bowel sounds Extremities: no edema Hosp A/P (1) Lung cancer, lower lobe Code(s): C34.30 - MALIGNANT NEOPLASM OF LOWER LOBE, UNSP BRONCHUS OR LUNG Status: Chronic Qualifiers: Laterality: right Qualified Code(s): C34.31 - Malignant neoplasm of lower lobe, right bronchus or lung (2) Encephalopathy acute Code(s): G93.40 - ENCEPHALOPATHY, UNSPECIFIED Status: Deleted (3) Acute renal failure Status: Acute (4) DM type 2 (diabetes mellitus, type 2) Status: Chronic Qualifiers: Diabetes mellitus conservation assistant insulin use: without conservation assistant use Diabetes mellitus complication status: with kidney complications Diabetes mellitus complication detail: with chronic kidney disease Chronic kidney disease stage : stage 4 (severe) Qualified Code(s): E11.22 - Type 2 diabetes mellitus with diabetic chronic kidney disease; N18.4 - Chronic kidney disease, stage 4 (severe ) (5) CAD (coronary artery disease) Code(s): I25.10 - ATHSCL HEART DISEASE OF [place] CORONARY ARTERY W/O ANG PCTRS Status: Chronic Qualifiers: Coronary Disease-Associated Artery/Lesion type: [place] artery [place] vs. transplanted heart: [place] heart Associated angina: without angina Qualified Code(s): I25.10 - Atherosclerotic heart disease of [place] coronary artery without angina pectoris (6) HTN (hypertension) Code(s): I10 - ESSENTIAL (PRIMARY) HYPERTENSION Status: Chronic Qualifiers: Hypertension type: essential hypertension Qualified Code(s): I10 - Essential (primary) hypertension (7) Acute systolic (congestive) heart failure Code(s): I50.21 - ACUTE SYSTOLIC (CONGESTIVE) HEART FAILURE Status: Acute - Plan agonal respirations, hypotensive, DNAR. discussed with family suspect demise immenent
[2019-03-28] MEDS: Aspirin 81 mg Enteric Coated Tablet PO SCH (11:11)
[2019-03-28] MEDS: Amiodarone 200 MG TAB PO SCH (11:11)
[2019-03-28] MEDS: Carvedilol 3.125 MG TAB PO SCH (11:11)
--- NOTE | 2019-03-30 06:45 | PQF ---
ALEJANDRA CANTOR COUNCIL C MD [id number] [facility]- B11 [id number] CLINICAL DOCUMENTATION CLARIFICATION FORM: POST DISCHARGE Addendum to original discharge summary date: ____ Late entry note date: __ DATE: 03/30/2018 ATTN: LIO FOSTER MD Please exercise your independent, professional judgment in responding to the clarification form. Clinical indicators are provided on the bottom of this form for your review Please check appropriate box(s) to clarify if the following diagnosis has been ruled in or ruled out: SEPSIS [x ] Ruled in diagnosis [ x ] Continue to treat [ ] Resolved [ ] Ruled out diagnosis [ ] Cannot rule out diagnosis [ ] Other diagnosis [ ] Unable to determine For continuity of documentation, please document condition throughout progress notes and discharge summary. Thank You. CLINICAL INDICATORS - SIGNS / SYMPTOMS / LABS -Leukocytosis with possible sepsis- H&P, 03/15, Emmanuel Lozano MD -Altered mental status- H&P, 03/15, Emmanuel Lozano MD -Acute metabolic encephalopathy-Hospital PN, 03/26, Bay Felix MD -WBC: 16.6- H&P, 03/15, Emmanuel Lozano MD - Pulse: 76, RR: 20-H&P, 03/15, Emmanuel Lozano MD RISK FACTORS - Acute renal failure-Hospital PN, 03/28, LIO FOSTER MD - Pneumonia- Hospital PN, 03/26, Bay Felix MD TREATMENTS - Levaquin.IV- MAR, 03/16 to 03/26 - Vancomycin.IV- MAR, 03/16 to 03/17 (This form is maintained as a part of the permanent medical record) 2014 [employer]. All Rights Reserved Paty German [not provided] [not provided] MTDD
--- NOTE | 2019-04-03 14:00 | DIS ---
DATE OF ADMISSION: 03/15/2019 DATE OF DISCHARGE: 03/28/2019 NOTE PRIMARY CARE PROVIDER: Diogenes Barrett MD DATE: 03/28/2019, 11:20 a.m. FINAL DIAGNOSES: Acute respiratory failure, pneumonia, lung cancer, diabetes mellitus with chronic kidney disease stage 3, coronary artery disease, delirium. HOSPITAL COURSE: The patient admitted to the hospital to [facility] through [facility] with delirium, weakness. He was found to have a sepsis, thought to have a right basilar empyema, and diabetes mellitus with chronic kidney disease. During his hospital stay, he was seen in consultation by Dr. Rodríguez Singh, Nephrology; Dr. Jake Clinton, Pulmonology; Gina Grossman, Oncology; Dr. Kael Larry, Cardiology; Dr. Aime Caputo, Infectious Disease. His initial laboratory revealed a white count of 13.1, hemoglobin 12.2, platelet count of 226,000. Blood gas showed a hypoxemic respiratory failure. Chemistries, lytes were balance. BUN 47, creatinine 3.45. Initially, he had hypoglycemia. Blood cultures, etc., were drawn. He was started on IV antibiotics. His blood cultures were negative. Chest x-ray revealed opacification with infiltrates in the right chest and infiltrates in the left chest. Abdominal and pelvis CT showed consolidated with loculated fluid collection in the right base. Echocardiogram revealed a severe diminishing of LVEF with an ejection fraction of [address] Clinton's assessment was necrotizing right lower lobe bronchogenic carcinoma, non-small cell with superimposed chronic obstructive pulmonary disease, tobacco abuse. The patient was treated with antibiotics, steroids, etc. He was seen by Dr. Aime Caputo. Dr. Caputo suggested there was no evidence for an abscess in the lung, just a necrotic area. Dr. Larry noted that he has had previous cardiac cath, valve replacement. The patient's progress was minimal during his hospital stay. He remained confused. He was followed closely by Pulmonology, etc. He was eventually changed from full code status to DNR status on 03/26/2019, immediately prior to my assuming his care. The patient and family had been seeking hospice care, palliative care. Arrangements were tried to be made to move him back home for hospice care, when this morning, he became hypotensive with agonal respirations and succumbed at 11:20 a.m. Job ID: [id number]
--- NOTE | 2019-04-04 11:00 | PRG ---
DATE OF SERVICE: 03/26/2019 SUBJECTIVE: Mr. Tejeda is not responsive today. The code status has been changed to [id number]. OBJECTIVE: VITAL SIGNS: His blood pressure is 111/59, pulse is 70. LUNGS: Clear. CARDIAC: Normal S1, normal S2. ASSESSMENT: 1. Systolic heart failure. 2. Coronary artery disease. 3. Previous bypass surgery. 4. Confusion and disorientation. PLAN: The hospitalist, Dr. Felix, has spoken with the family. They have changed his code status to [id number] pursuing hospice. Please let us know if we can be of any assistance. Job ID: [id number]
== END 2019-03-28 11:20 | disposition expired | DRG 871 ==
LOC: ERS 19:53 → ERHOLD 23:52 → IMCU/EMU 03-16 06:34 → T4-A 03-26 16:45
PROVIDERS: ADMIT Internal Medicine; ATTEND Internal Medicine
DX: A41.9 Sepsis, unspecified organism (principal); J86.9 Pyothorax without fistula; J18.9 Pneumonia, unspecified organism; I50.43 Acute on chronic combined systolic (congestive) and diastolic (congestive) heart failure; G93.41 Metabolic encephalopathy; J96.01 Acute respiratory failure with hypoxia; N17.9 Acute kidney failure, unspecified; C34.90 Malignant neoplasm of unspecified part of unspecified bronchus or lung; I47.2 Ventricular tachycardia; N39.0 Urinary tract infection, site not specified; I13.0 Hypertensive heart and chronic kidney disease with heart failure and stage 1 through stage 4 chronic kidney disease, or unspecified chronic kidney disease; N18.4 Chronic kidney disease, stage 4 (severe); R29.6 Repeated falls; E87.6 Hypokalemia; E11.649 Type 2 diabetes mellitus with hypoglycemia without coma; I34.0 Nonrheumatic mitral (valve) insufficiency; J44.9 Chronic obstructive pulmonary disease, unspecified; I25.10 Atherosclerotic heart disease of native coronary artery without angina pectoris; R13.12 Dysphagia, oropharyngeal phase; I25.5 Ischemic cardiomyopathy; F41.9 Anxiety disorder, unspecified; F32.9 Major depressive disorder, single episode, unspecified; Z51.5 Encounter for palliative care; E78.00 Pure hypercholesterolemia, unspecified; F17.210 Nicotine dependence, cigarettes, uncomplicated; I25.2 Old myocardial infarction; Z95.5 Presence of coronary angioplasty implant and graft; Z95.1 Presence of aortocoronary bypass graft; Z79.4 Long term (current) use of insulin
CPT/HCPCS: 36415; 36416; 70551; 71045; 71250; 74176; 80048; 80053; 80069; 80202; 82533; 82805; 83036; 83735; 84443; 85025; 87040; 93306; 94640; J0692; J1120; J1250; J1610; J1644; J1650; J1815; J1885; J1940; J1956; J2060; J2270; J2920; J3370; J3475; J3486; J3490; J7050; J7070; J7620; P9047